=== PATIENT | female | born 1960 | race Caucasian/White ===

== ENCOUNTER 2019-04-01 23:17 | Inpatient (IN) | payer MEDICARE ==
[~2019-04-01] VITALS: Ht 170.2 cm; Wt 77.0 kg
--- NOTE | 2019-04-01 01:45 | NUR ---
RECIEVED REPORT FROM RANDY ADAMS. PT ARRIVED ON STRETCHER, ALERT, BUT CONFUSED, WITH GARBLED SPEECH. PT ALSO APPEARS LETHARGIC ON ARRIVAL. SODIUM BICARB INFUSING @ 200MLS/HR ON ARRIVAL, WITH NS ALSO INFUSING @ 250MLS/HR. PIV ON LFA AND LEFT CHEST/UPPER ARM INTACT. IQBAL INTACT, WITH MINIMAL DRAINAGE. PT IS A POOR HISTORIAN, DUE TO LITTLE OR NO VERBAL RESPONSE. ADMISSION ASSESSMENT COMPLETED. PT DENIES ANY FURTHER NEEEDS FOR COMFORT CARE. WILL CTM.
--- NOTE | 2019-04-01 01:50 | NUR ---
CALLED TRAINING DEVELOPER/ER DOCTOR ABOUT RATE OF INFUSION OF SODIUM BICARD INFUSING @ 2OOMLS/HR. DOCTOR ORDERED TO DC THE SODIUM BICARB, BUT CONTINUE THE INFUSION OF NS @ 250MLS/HR. PT IN BED WITH EYES CLOSED, NO S/S OF DISTRESS.
[2019-04-01] MEDS ORDERED: LIPITOR10 MG (23:26)
[2019-04-01] MEDS ORDERED: CYCLOBENZAPRINE5 MG PO (23:26)
[2019-04-01] MEDS ORDERED: PROLIXIN DEC25 MG/ML (23:27)
[2019-04-01] MEDS ORDERED: COUMADIN2 MG PO (23:27)
[2019-04-01] MEDS ORDERED: DEPAKOTE125 MG (23:27)
[2019-04-01] MEDS ORDERED: TENORMIN25 MG PO (23:27)
--- NOTE | 2019-04-01 23:49 | NUR ---
PT RECEIVING 24MG SODIUM BICARB IN 1000ML 0.9% NS UPON ARRIVAL. EDP VERBAL ORDER TO CONTINUE AT 200ML/HR.
[2019-04-02] VITALS (7 sets, daily range): BP systolic 124–165; BP diastolic 48–80; BMI 29.5
[2019-04-02 00:09] LABS: APPEARANCE CLOUDY (CLEAR); BILIRUBIN NEGATIVE (NEGATIVE); COLOR YELLOW (YELLOW); GLUCOSE 100 mg/dL (NEGATIVE); KETONE SMALL mg/dL (NEGATIVE); NITRITE NEGATIVE (NEGATIVE); PROTEIN 3+ mg/dL (NEGATIVE); SPECIFIC GRAVITY 1.015 (1.005-1.020); UROBILINOGEN NORMAL (NORMAL)
[2019-04-02 00:11] LABS: BACTERIA MANY /hpf (NEGATIVE); EPITHELIAL CELLS 0-5 /hpf (0-5)
[2019-04-02 00:22] LABS: ALBUMIN 2.3 g/dL (3.4-5.0); ALKALINE PHOSPHATASE 57 U/L (46-116); ALT (SGPT) 403 U/L (10-68); BILIRUBIN - TOTAL 0.44 mg/dL (0.2-1.3); CALC OSMOLALITY 302 mosm/kg (275-300); CALCIUM 7.2 mg/dL (8.5-10.1); CARBON DIOXIDE 20.1 mmol/L (21.0-32.0); CHLORIDE - SERUM 106 mmol/L (98-107); CREATININE - SERUM 8.1 mg/dL (0.6-1.3); GLUCOSE 103 mg/dL (74-106); MAGNESIUM - SERUM 2.4 mg/dL (1.8-2.4); POTASSIUM - SERUM 4.6 mmol/L (3.5-5.1); PROTEIN - SERUM 5.5 g/dL (6.4-8.2); SODIUM 140 mmol/L (136-145); UREA NITROGEN 80 mg/dL (7-18); eGFR NON AFRICAN AMERICAN 5 mL/min (90-120)
[2019-04-02 00:23] LABS: CREATINE KINASE 17525 UL (21-215)
[2019-04-02 00:52] LABS: CKMB 81.9 U/L (0.0-3.6)
--- NOTE | 2019-04-02 01:15 | NUR ---
STAT LOC APPLIED TO LEFT THIGH TO SECURE 16F IQBAL.
[2019-04-02 06:20] LABS: BASOPHILS 0.3 % (0-2); EOSINOPHILS 0.8 % (0-7); HEMATOCRIT 36.7 % (36.0-48.0); HEMOGLOBIN 12.7 g/dL (12-16); IMMATURE GRANULOCYTES 0.1 % (0-5); LYMPHOCYTES 11.5 % (15-50); MCH 30.2 pg (26.0-34.0); MCHC 34.6 g/dL (31.0-37.0); MCV 87.2 fL (80.0-100.0); MEAN PLATELET VOLUME 11.7 fL (7.4-10.4); MONOCYTES 12.1 % (2-11); NEUTROPHILS 75.2 % (40-80); PLATELET COUNT 108 10x3/uL (130-400); RBC 4.21 10x6/uL (4.00-5.40); RDW 13.7 % (11.5-14.5); WBC 7.6 10x3/uL (4.8-10.8)
[2019-04-02 07:01] LABS: ALBUMIN 2.2 g/dL (3.4-5.0); ALKALINE PHOSPHATASE 54 U/L (46-116); ALT (SGPT) 356 U/L (10-68); BILIRUBIN - TOTAL 0.34 mg/dL (0.2-1.3); CALC OSMOLALITY 305 mosm/kg (275-300); CALCIUM 7.1 mg/dL (8.5-10.1); CARBON DIOXIDE 19.4 mmol/L (21.0-32.0); CHLORIDE - SERUM 107 mmol/L (98-107); CREATININE - SERUM 8.5 mg/dL (0.6-1.3); GLUCOSE 96 mg/dL (74-106); POTASSIUM - SERUM 4.3 mmol/L (3.5-5.1); PROTEIN - SERUM 4.8 g/dL (6.4-8.2); SODIUM 141 mmol/L (136-145); UREA NITROGEN 83 mg/dL (7-18); eGFR NON AFRICAN AMERICAN 5 mL/min (90-120)
[2019-04-02 07:02] LABS: CREATINE KINASE 14661 UL (21-215)
[2019-04-02 07:03] LABS: TROPONIN-I 0.207 ng/mL (0.000-0.060)
--- NOTE | 2019-04-02 07:56 | NUR ---
FLORES DUNCAN AWARE OF TROPONIN 0.207. SHE STATED THATS FROM THE [facility]. I ALSO STATED TO HER I PLACED A TELEMETRY ON THE PATIENT AND SHE STATES GOOD.
[2019-04-02 09:53] LABS: LDL-HDL RATIO 2.7 ratio (1.5-3.5); MAGNESIUM - SERUM 2.3 mg/dL (1.8-2.4); PHOSPHOROUS 7.1 mg/dL (2.5-4.9)
[2019-04-02 10:18] LABS: COMPLEMENT C4 32.4 mg/dL (17.4-52.2)
--- NOTE | 2019-04-02 12:33 | NUR ---
PT VOMITING. SPOKE WITH MEENAKSHI DUNCAN AND SHE GAVE VERBAL ORDER FOR ZOFRAN 4MG Q6HP.
--- NOTE | 2019-04-02 12:47 | NUR ---
MEENAKSHI DUNCAN STATES I CAN ORDER A SWALLOW EVAL. I ALSO STATED TO MEENAKSHI DUNCAN THAT PT IS HAVING A LOT OF BACK PAIN AND SHE STATES SHE WILL LOOK AT HER CHART.
--- NOTE | 2019-04-02 14:30 | NUR ---
PATIENT RESTING WITH EYES CLOSED. RESP EVEN AND UNLABORED. PATIENTS PARENTS AT BEDSIDE. URINE COLLECTED FROM PORT FOR UA AT THIS TIME AFTER CLEANINGS HUB WELL. CALL LIGHT WITHIN REACH. NO DISTRESS.
[2019-04-02 15:13] LABS: APTT 40.9 SECONDS (22.8-39.4); INR 3.15 (0.85-1.17); PROTIME 31.6 SECONDS (11.6-15.0)
--- NOTE | 2019-04-02 16:20 | NUR ---
SPOKE WITH MEENAKSHI DUNCAN ABOUT STARTING HOME MEDS. SHE STATES SHE WILL LOOK ATTHEM.
[2019-04-02] MEDS ORDERED: ACETAMINOPHEN500 M1 PO (16:26)
--- NOTE | 2019-04-02 16:31 | NUR ---
MED LIST CORRECTED FROM PAPERWORK FROM [facility]. TRIED CALLING [facility] WHERE PT LIVES AND ALL I KEEP GETTING IS VOICEMAIL.
--- NOTE | 2019-04-02 16:35 | NUR ---
SPOKE WITH [facility] AND THE NURSE FROM FACILITY IS SUPPOSSED TO CALL ME BACK.
--- NOTE | 2019-04-02 19:42 | NUR ---
REPORT RECIEVED AND ROUNDING COMPLETE. PATIENT SITTING ON BSC, GRIPPER INSTALLER REPORTS SHE TRANSFERED WELL. ASSISTED WITH GETTING PATIENT BACK TO BED. PATIENT HAS A LEFT UPPER ARM PIV THAT IS RUNNING NORMAL SALINE, PIV HAS NO S/SX OF INFILTRATION OR INFECTION. PATIENT HAS A IQBAL CATH WITH PINKISH COLORED CLOUDY URINE. PATIENT IS A LITTLE LETHARGIC AT THIS TIME. PATIENT HAS DELAYED RESPONSE WHEN IS COME TO TALKING. PATIENT IS COMFORTABLE IN BED IN HIGH FOWLERS. BED ALARM IS ON, CALL LIGHT WITHIN REACH AND BED IN LOWEST LOCKED POSITION.
[2019-04-03 04:00] VITALS: BP 138/67
[2019-04-03 06:02] LABS: INR 3.03 (0.85-1.17); PROTIME 30.6 SECONDS (11.6-15.0)
[2019-04-03 06:03] LABS: ALBUMIN 1.9 g/dL (3.4-5.0); BILIRUBIN - TOTAL 0.29 mg/dL (0.2-1.3); CREATININE - SERUM 9.3 mg/dL (0.6-1.3); POTASSIUM - SERUM 4.6 mmol/L (3.5-5.1); PROTEIN - SERUM 4.4 g/dL (6.4-8.2)
[2019-04-03 06:04] LABS: ANION GAP 21.1 mmol/L (8-16); CARBON DIOXIDE 12.5 mmol/L (21.0-32.0)
[2019-04-03 06:26] LABS: BASOPHILS 0.3 % (0-2); EOSINOPHILS 1.9 % (0-7); HEMATOCRIT 37.4 % (36.0-48.0); HEMOGLOBIN 12.7 g/dL (12-16); IMMATURE GRANULOCYTES 0.1 % (0-5); LYMPHOCYTES 11.8 % (15-50); MCH 29.6 pg (26.0-34.0); MCV 87.2 fL (80.0-100.0); MEAN PLATELET VOLUME 11.6 fL (7.4-10.4); MONOCYTES 12.1 % (2-11); NEUTROPHILS 73.8 % (40-80); PLATELET COUNT 127 10x3/uL (130-400); RBC 4.29 10x6/uL (4.00-5.40); WBC 7.8 10x3/uL (4.8-10.8)
[2019-04-03 08:00] VITALS: BP 145/61
[2019-04-03 08:31] LABS: CKMB 22.3 U/L (0.0-3.6)
[2019-04-03 08:32] LABS: CREATINE KINASE 4519 UL (21-215)
[2019-04-03 12:00] VITALS: BP 131/59
--- NOTE | 2019-04-03 14:28 | NUR ---
PAGE PLACED TO PERLA ARRIETA TO REQUEST PAIN MEDICATION STRONGER THAN TYLENOL. PATIENT HAD A FALL AND TYLENOL HAS NOT BEEN EFFECTIVE FOR BACK PAIN.
--- NOTE | 2019-04-03 14:37 | NUR ---
MEENAKSHI RETURNED CALL AND GAVE NEW ORDERS FOR BUPRENEX 0.1MG IV Q6 HOURS PRN PAIN
[2019-04-03 16:00] VITALS: BP 130/59
--- NOTE | 2019-04-03 17:36 | NUR ---
LETHARGIC. IN BED. AROUSES TO STIMULI. POCKETS FOOD. CHOKES EASILY WHEN EATING. SINUS RHYTHM 70 WITH BBB ON TELEMETRY. IQBAL DRAINING BY GRAVITY AT BEDSIDE. FAMILY AT BEDSIDE. SODIUM BICARB INFUSING ORDERED THROUGH LT UPPER ARM. DENIES ANY NEEDS AT THIS TIME. CONTINUE PLAN OF CARE AND SAFETY PRECAUTIONS.
--- NOTE | 2019-04-03 19:46 | NUR ---
PT RESTING IN BED ALERT TO LOUD VOICE. RR EVEN AND UNLABORED. BICARB RUNNING AT 100ML/HR. FOUND FOOD POCKETED IN PT'S MOUTH. PT HAVING DIFFICULTY SWALLOWING FOOD. MOTHER AT BEDSIDE. BED LOW CALL LIGHT WITHIN REACH. WILL CONTINUE TO MONITOR.
[2019-04-03 20:23] VITALS: BP 120/70
[2019-04-04 00:11] VITALS: BP 123/64
--- NOTE | 2019-04-04 00:49 | NUR ---
I have reviewed this patient and I concur with the Shift Assessment completed by the Licensed Practical Nurse today this shift.
--- NOTE | 2019-04-04 01:57 | NUR ---
PT COMPLAINS OF PAIN IN LOWER BACK AREA. PRN PAIN MED GIVEN. VITALS STABLE AT THIS TIME. BED LOW CALL LIGHT WITHIN REACH. MOTHER AT BEDSIDE. WILL CONTINUE TO MONTITOR.
[2019-04-04 03:19] LABS: APPEARANCE CLOUDY (CLEAR); BILIRUBIN NEGATIVE (NEGATIVE); COLOR YELLOW (YELLOW); GLUCOSE 50 mg/dL (NEGATIVE); KETONE NEGATIVE (NEGATIVE); NITRITE NEGATIVE (NEGATIVE); PROTEIN 3+ mg/dL (NEGATIVE); SPECIFIC GRAVITY 1.015 (1.005-1.020); UROBILINOGEN NORMAL (NORMAL)
[2019-04-04 03:21] LABS: BACTERIA MODERATE /hpf (NEGATIVE); EPITHELIAL CELLS 0-5 /hpf (0-5); WHITE CELLS - URINE 25-50 /hpf (NEGATIVE)
--- NOTE | 2019-04-04 03:26 | NUR ---
PT RESTING IN BED WITH EYES CLOSED RR EVEN AND UNLABORED. NO S/S OF DISTRESS. MOTHER AT BEDSIDE. BED LOW CALL LIGHT WITHIN REACH. WILL CONTINUE TO MONITOR.
[2019-04-04 04:24] VITALS: BP 109/56
--- NOTE | 2019-04-04 05:53 | NUR ---
PT HAS 50ML OF URINE OUTPUT ALL NIGHT. PT RESTING COMFORTABLY AT THIS TIME. BED LOW. MOTHER AT BEDSIDE. CALL LIGHT WITHIN REACH. WILL CONTINUE TO MONITOR.
[2019-04-04 06:25] LABS: BASOPHILS 0.3 % (0-2); HEMATOCRIT 34.7 % (36.0-48.0); HEMOGLOBIN 12.2 g/dL (12-16); IMMATURE GRANULOCYTES 0.2 % (0-5); LYMPHOCYTES 16.9 % (15-50); MCH 30.1 pg (26.0-34.0); MCHC 35.2 g/dL (31.0-37.0); MCV 85.7 fL (80.0-100.0); MEAN PLATELET VOLUME 11.2 fL (7.4-10.4); MONOCYTES 13.6 % (2-11); PLATELET COUNT 127 10x3/uL (130-400); RBC 4.05 10x6/uL (4.00-5.40); RDW 13.7 % (11.5-14.5); WBC 6.3 10x3/uL (4.8-10.8)
[2019-04-04 07:08] LABS: INR 3.12 (0.85-1.17); PROTIME 31.3 SECONDS (11.6-15.0)
[2019-04-04 07:13] LABS: ALBUMIN 1.7 g/dL (3.4-5.0); ALKALINE PHOSPHATASE 41 U/L (46-116); BILIRUBIN - TOTAL 0.33 mg/dL (0.2-1.3); CALC OSMOLALITY 309 mosm/kg (275-300); CALCIUM 7.1 mg/dL (8.5-10.1); CHLORIDE - SERUM 105 mmol/L (98-107); CREATININE - SERUM 10.3 mg/dL (0.6-1.3); GLUCOSE 84 mg/dL (74-106); PROTEIN - SERUM 4.3 g/dL (6.4-8.2); SODIUM 141 mmol/L (136-145); UREA NITROGEN 97 mg/dL (7-18); eGFR NON AFRICAN AMERICAN 4 mL/min (90-120)
[2019-04-04 07:17] LABS: ALT (SGPT) 172 U/L (10-68); CARBON DIOXIDE 20.8 mmol/L (21.0-32.0); CREATINE KINASE 2078 UL (21-215); POTASSIUM - SERUM 3.9 mmol/L (3.5-5.1)
--- NOTE | 2019-04-04 07:44 | NUR ---
RECIEVED REPORT. RESTING IN BED WITH EYES CLOSED. FAMILY AT BEDSIDE. NOTIFY PERLA GRACIA OF BUN AND CR TRENDING UP. SINUS RHYTHM WITH BBB. CONTINUE PLAN OF CARE AND SAFETY PRECAUTIONS.
[2019-04-04 07:53] VITALS: BP 125/60
[2019-04-04 11:03] VITALS: BP 107/59
[2019-04-04 15:37] VITALS: BP 108/54
--- NOTE | 2019-04-04 17:02 | NUR ---
LETHARGIC. AROUSES TO STIMULI. FAMILY AT BEDSIDE. IQBAL DRAINING BY GRAVITY SCANT DRAINAGE. DOCTOR KOURTNEY AT BEDSIDE EDUCATING FAMIILY ON KIDNEY FUNCTION AND DIALYSIS. DENIES ANY NEEDS AT THIS TIME. CONTINUE PLAN OF CARE AND SAFETY PRECAUTIONS.
--- NOTE | 2019-04-04 19:33 | NUR ---
LCTA PT IS NON VERBAL WHEN I ASK QUESTIONS AND WILL STARE PAST ME SKIN WARM AND DRY BOWEL SOUNDS X4 SRX2 AND BED LOW AND LOCKED ASSISTED WITH REPOSITIONING FAMILY MEMBER IS CONTROLLING CALL LIGHT AT THIS TIME
[2019-04-04 20:00] VITALS: BP 122/69
--- NOTE | 2019-04-04 23:53 | NUR ---
SPO2 NOW 97% WITH 2L
[2019-04-05] VITALS: BP 115/63
--- NOTE | 2019-04-05 04:50 | NUR ---
I have reviewed this patient and I concur with the Shift Assessment completed by the Licensed Practical Nurse today this shift.
[2019-04-05 05:50] LABS: BASOPHILS 0.4 % (0-2); EOSINOPHILS 5.1 % (0-7); HEMATOCRIT 33.7 % (36.0-48.0); HEMOGLOBIN 11.6 g/dL (12-16); IMMATURE GRANULOCYTES 0.3 % (0-5); MCH 29.5 pg (26.0-34.0); MCHC 34.4 g/dL (31.0-37.0); MCV 85.8 fL (80.0-100.0); MONOCYTES 15.7 % (2-11); NEUTROPHILS 63.5 % (40-80); PLATELET COUNT 121 10x3/uL (130-400); RBC 3.93 10x6/uL (4.00-5.40); RDW 13.7 % (11.5-14.5); WBC 7.2 10x3/uL (4.8-10.8)
[2019-04-05 06:42] LABS: PROTIME 36.5 SECONDS (11.6-15.0)
[2019-04-05 06:44] LABS: INR 3.78 (0.85-1.17)
[2019-04-05 07:01] LABS: ALBUMIN 1.7 g/dL (3.4-5.0); ALKALINE PHOSPHATASE 41 U/L (46-116); ALT (SGPT) 136 U/L (10-68); CALC OSMOLALITY 315 mosm/kg (275-300); CHLORIDE - SERUM 105 mmol/L (98-107); CKMB 8.1 U/L (0.0-3.6); CREATININE - SERUM 10.6 mg/dL (0.6-1.3); GLUCOSE 105 mg/dL (74-106); POTASSIUM - SERUM 3.8 mmol/L (3.5-5.1); PROTEIN - SERUM 4.4 g/dL (6.4-8.2); SODIUM 144 mmol/L (136-145); UREA NITROGEN 95 mg/dL (7-18); eGFR NON AFRICAN AMERICAN 4 mL/min (90-120)
[2019-04-05 07:30] LABS: CARBON DIOXIDE 27.1 mmol/L (21.0-32.0); CREATINE KINASE 1405 UL (21-215)
[2019-04-05 07:31] LABS: CALCIUM 6.9 mg/dL (8.5-10.1)
[2019-04-05 08:00] VITALS: BP 128/62
--- NOTE | 2019-04-05 09:07 | NUR ---
ATENOLOL GIVEN WITH APPLE SAUCE. PT A/O X1, RESP EVEN AND NONLABORED ON 2L. LT UPPER ARM SL, WAITING ON PHARMACY TO BRING ANOTHER BAG OF SODIUM BICARB FLUIDS. LT FA INFUSING NS AT KVO. MONITOR SHOWING SB WITH RATE OF 57. IQBAL CATHETER DRAINING TO GRAVITY. PT MIRYAM ANY NEEDS AT THIS TIME, CALL LIGHT IN REACH, NAD NOTED,W ILL CONTINUE TO MONITOR.
[2019-04-05 12:24] VITALS: BP 140/66
--- NOTE | 2019-04-05 14:00 | NUR ---
COMPLETE BED BATH GIVEN AND COMPLETE LINEN CHANGE DONE AT THIS TIME. REPOSITONED PT ON LT SIDE. PT DENIES ANY NEEDS AT THIS TIME. JUST AKING FOR HER PARENTS, INFORMED PT THAT HER FATHER WENT TO PICK HER MOTHER UP TO BRING HER UP TO THE HOSPITAL. CALL LIGHT IN REACH, BEDSIDE RAILS X2, NAD NOTED, WILL CONTINUE TO MONITOR.
[2019-04-05 14:09] LABS: SPE - A/G RATIO 0.9 (0.7-1.7); SPE - ALBUMIN 2.1 g/dL (2.9-4.4); SPE - ALPHA-1 GLOBULIN 0.3 g/dL (0.0-0.4); SPE - ALPHA-2 GLOBULIN 0.6 g/dL (0.4-1.0); SPE - BETA GLOBULIN 0.9 g/dL (0.7-1.3); SPE - GAMMA GLOBULIN 0.5 g/dL (0.4-1.8); SPE - M-SPIKE Not Observed g/dL (Not Observed); SPE - TOTAL PROTEIN 4.5 g/dL (6.0-8.5)
[2019-04-05 14:53] VITALS: BMI 31.4
[2019-04-05 16:19] VITALS: BP 146/66
[2019-04-05 20:15] VITALS: BP 142/68
[2019-04-06 00:02] VITALS: BP 136/78
[2019-04-06 04:00] VITALS: BP 141/74
--- NOTE | 2019-04-06 04:34 | NUR ---
I have reviewed this patient and I concur with the Shift Assessment completed by the Licensed Practical Nurse today this shift.
--- NOTE | 2019-04-06 04:52 | NUR ---
I have reviewed this patient and I concur with the Shift Assessment completed by the Licensed Practical Nurse today this shift.
[2019-04-06 06:44] LABS: INR 3.55 (0.85-1.17); PROTIME 34.7 SECONDS (11.6-15.0)
[2019-04-06 06:46] LABS: BASOPHILS 0.4 % (0-2); EOSINOPHILS 4.7 % (0-7); HEMATOCRIT 33.5 % (36.0-48.0); HEMOGLOBIN 11.6 g/dL (12-16); IMMATURE GRANULOCYTES 0.3 % (0-5); LYMPHOCYTES 12.8 % (15-50); MCH 29.9 pg (26.0-34.0); MCHC 34.6 g/dL (31.0-37.0); MCV 86.3 fL (80.0-100.0); MEAN PLATELET VOLUME 10.9 fL (7.4-10.4); MONOCYTES 14.4 % (2-11); NEUTROPHILS 67.4 % (40-80); PLATELET COUNT 134 10x3/uL (130-400); RBC 3.88 10x6/uL (4.00-5.40); RDW 13.5 % (11.5-14.5); WBC 7.5 10x3/uL (4.8-10.8)
[2019-04-06 06:53] LABS: ALBUMIN 1.8 g/dL (3.4-5.0); ALKALINE PHOSPHATASE 45 U/L (46-116); ALT (SGPT) 109 U/L (10-68); BILIRUBIN - TOTAL 0.32 mg/dL (0.2-1.3); CALC OSMOLALITY 312 mosm/kg (275-300); CARBON DIOXIDE 29.4 mmol/L (21.0-32.0); CHLORIDE - SERUM 102 mmol/L (98-107); CKMB 6.6 U/L (0.0-3.6); CREATININE - SERUM 10.5 mg/dL (0.6-1.3); GLUCOSE 89 mg/dL (74-106); POTASSIUM - SERUM 3.6 mmol/L (3.5-5.1); PROTEIN - SERUM 4.2 g/dL (6.4-8.2); SODIUM 143 mmol/L (136-145); UREA NITROGEN 94 mg/dL (7-18); eGFR NON AFRICAN AMERICAN 4 mL/min (90-120)
[2019-04-06 07:14] LABS: ANA REFLEX - DBL STRANDED DNA <1 IU/mL (0-9); ANA REFLEX - DIRECT Negative (Negative)
[2019-04-06 07:33] LABS: CREATINE KINASE 920 UL (21-215)
--- NOTE | 2019-04-06 07:35 | NUR ---
GAVE 0.1MG OF BUPRENEX FOR PAIN LEVEL OF 7/10. PT A/OX 1. RESP EVEN AND NONLABORED ON 2L. RESPOSITONED PT IN BED, AND TURNED HER TO HER LEFT SIDE. IQBAL DRAINING YELLOW URINE TO GRAVITY. LT UPPPER ARM INFUSING SODIUM BICARB AT 100CC/HR. AND NS AT 10CC/HR. PT DENIES ANY OTHER NEEDS AT THIS TIME. CALL LIGHT IN REACH, BEDSIDE RAILS X2, FAMILY AT BEDSIDE,NAD NOTED, WILL CONTINUE TO MONITOR.
[2019-04-06 07:38] LABS: CALCIUM 6.8 mg/dL (8.5-10.1)
--- NOTE | 2019-04-06 08:11 | NUR ---
ATENOLOL GIVEN WITH APPLE SAUCE, PT HAD NO TROUBLE SWALLOWING PIL. PT RATES PAIN LEVEL NOW 5/10. PT DENIES ANY NEEDS AT THIS TIME. CALL LIGHT IN REACH, FAMILY AT BEDSIDE, NAD NOTED, WILL CONTINUE TO MONITOR.
[2019-04-06 08:45] VITALS: BP 148/69
--- NOTE | 2019-04-06 11:30 | NUR ---
APPLIED MEPELEX DRESSING TO BOTTOM AND REPOSITIONED PT IN THE BED, TURNED HER TO HER LEFT SIDE. PT DENIES ANY NEEDS AT THIS TIME. CALL LIGHT IN REACH, FAMILY AT BEDSIDE, NAD NOTED,W ILL CONTINUE TO MONITOR.
[2019-04-06 11:45] VITALS: BP 129/60
--- NOTE | 2019-04-06 14:22 | MORECARE ---
CASE MANAGEMENT DISCHARGE SUMMARY PATIENT: ANEESH FRYE UNIT: [id number] ADM DATE: 04/02/19 AGE: 58 : 56 SEX: F ROOM/BED: D.8426 AUTHOR: ZAC SALDANA PHYSICIAN: REFERRING PHYSICIAN: PETRA SOMMERS MD DATE OF SERVICE: 04/06/19 Discharge Plan Patient Name: ANEESH FRYE Facility: [facility]:[place] : 1960 Planned Disposition: Anticipated Discharge Date: Discharge Date: Expected LOS: Initial Reviewer: [id number] Initial Review Date: 04/06/2019 Generated: 04/06/19 3:21 pm Comments DCP- Discharge Planning Updated by [email or web address]: Donya Jenn on 04/06/19 1:[address] Patient Name: ANEESH FRYE Admission Status: ER Accout number: [id number] Admission Date: 04-02-2019 : 1960 Admission Diagnosis:ACUTE KIDNEY FAILURE, UNSPECIFIED Attending: NEGRA SOMMERS Current LOS: 4 Anticipated DC Date: Planned Disposition: Primary Insurance: [employer] [facility] PFFS Discharge Planning Comments: CM MET WITH PATIENT ABOUT DC PLANNING/NEEDS. HER SISTER HORACE STATED THEIR PARENTS ABRAM FRYE HAVE GAURDIANSHIP. STATES SISTER HAS MR AND SCHIZOPHRENIA AND LIVES IN A ASSISTED, SISTER IS CONCERNED PATIENT MAY NEED REHAB AFTER DISCHARGE. STATES WHEN PARENTS ARRIVE THEY WILL CONTACT CM. Blanking Press Operator: Donya Barajas DCPIA - Discharge Planning Initial Assessment Updated by [id number]: Donya Barajas on 04/06/19 2:18 pm * Is the patient Alert and Oriented? No * Preadmission Environment [facility] * List name and contact numbers for known caregivers / representatives who currently or will assist patient after discharge: ABRAM FRYE, PARENTS, Patient Name: ANEESH FRYE Page [phone] at 1422 All edits/amendments must be made on the electronic document DICTATION DATE: 04/06/19 1421 SKIN CARE TECHNICIAN: SAIMA 04/06/19 1428 RPT#: [id number] [place] DATE: STATUS: ADM IN [facility] [address] [place] [address] END OF REPORT
--- NOTE | 2019-04-06 15:02 | NUR ---
PT REPOSITIONED IN BED AND TURNED TO HER RIGHT SIDE. FAMILY AT BEDSIDE,STATED THAT THE DOCTOR TOLD HER THAT SHE WAS GOING TO D/C PT'S FLUID AND ORDER MORPHINE FOR PAIN. INFORMED FAMILY AT BEDSIDE THAT THE ORDERS WERE STILL NOT IN AND THAT I WOULD TURN THE FLUIDS DOWN A LITTLE UNTIL I RECEIVE ORDERS TO D/C IV FLUIDS. PT DENIES ANY NEEDS AT THIS TIME. CALL LIGHT IN REACH, MARIANA NOTED, WILL CONTINUE TO MONITOR.
--- NOTE | 2019-04-06 16:17 | NUR ---
COMPLETE BED BATH AND LINEN CHANGE DONE AT THIS TIME.
[2019-04-06 16:37] VITALS: BP 142/68
--- NOTE | 2019-04-06 19:30 | NUR ---
PT ALERT, ORIENTED X4, RIGHT PIV INTACT WITH NS @ KVO, DRESSING C/D/I TO BACK OF LEFT THIGH, VISITOR @ BEDSIDE, NO C/O
--- NOTE | 2019-04-06 19:50 | NUR ---
PT ALERT, CONFUSED, SLOW TO RESPOND VERBALLY, O2 @ 2L VIA N/C, LEFT ARM PIV INTACT WITH LR @ 75 CC/HR, IQBAL PATENT TO BSD, PT SISTER @ BEDSIDE, NO DISTRESS NOTED
[2019-04-06 20:00] VITALS: BP 148/67
[2019-04-07] VITALS: BP 151/72
[2019-04-07 05:14] LABS: BASOPHILS 0.2 % (0-2); EOSINOPHILS 5.8 % (0-7); HEMATOCRIT 32.7 % (36.0-48.0); HEMOGLOBIN 11.3 g/dL (12-16); IMMATURE GRANULOCYTES 0.2 % (0-5); LYMPHOCYTES 11.2 % (15-50); MCH 29.1 pg (26.0-34.0); MCHC 34.6 g/dL (31.0-37.0); MEAN PLATELET VOLUME 10.6 fL (7.4-10.4); MONOCYTES 13.4 % (2-11); NEUTROPHILS 69.2 % (40-80); PLATELET COUNT 149 10x3/uL (130-400); RBC 3.88 10x6/uL (4.00-5.40); RDW 13.3 % (11.5-14.5); WBC 8.4 10x3/uL (4.8-10.8)
[2019-04-07 05:23] LABS: MCV 84.3 fL (80.0-100.0)
[2019-04-07 05:39] LABS: INR 3.27 (0.85-1.17); PROTIME 32.6 SECONDS (11.6-15.0)
[2019-04-07 05:46] LABS: ALBUMIN 1.8 g/dL (3.4-5.0); ANION GAP 14.9 mmol/L (8-16); BILIRUBIN - TOTAL 0.39 mg/dL (0.2-1.3); CARBON DIOXIDE 29.3 mmol/L (21.0-32.0); POTASSIUM - SERUM 3.2 mmol/L (3.5-5.1); PROTEIN - SERUM 4.6 g/dL (6.4-8.2)
[2019-04-07 05:54] LABS: CALCIUM 6.9 mg/dL (8.5-10.1)
--- NOTE | 2019-04-07 07:40 | NUR ---
REPORT RECIEVED. PT IS SITTING FOWLERS IN BED. RR EVEN AND UNLABORED, CURRENTLY ON 2L NC. SHE HAS A L AC PIV THAT IS SL AND A L UPPER ARM PIV INFUSING LR @ 75. BED LOCKED AND IN LOWEST POSITION. CALL LIGHT WITHIN REACH. WILL CTM
[2019-04-07 08:34] VITALS: BP 145/72
[2019-04-07 12:30] VITALS: BP 148/73
--- NOTE | 2019-04-07 14:12 | NUR ---
Nutrition Follow-up: Spoke with family. He reports pt with poor PO intake and does not like Nepro; expressed interest in more solid foods. Noted ST to try therapeutic trial of mechanical soft on Thu (04/08). Diet: Renal, Puree, Nepro TID Wt: 225# Last BM: 04/03 per chart Labs noted: K+ 3.2, Ca 6.9, Glu 115, Alb 1.8 Meds reviewed Continue current diet as tolerated with consistencies per ST. Will discuss d/c'ing Nepro 2/2 pt refusal. If poor PO intake persists, may consider nutrition support. RD following.
--- NOTE | 2019-04-07 14:58 | MORECARE ---
CASE MANAGEMENT DISCHARGE SUMMARY PATIENT: ANEESH FRYE UNIT: [id number] ADM DATE: 04/02/19 AGE: 58 : 56 SEX: F ROOM/BED: D.9421 AUTHOR: ZAC SALDANA PHYSICIAN: REFERRING PHYSICIAN: PETRA SOMMERS MD DATE OF SERVICE: 04/07/19 Discharge Plan Patient Name: ANEESH FRYE Facility: [facility]:[place] : 1960 Planned Disposition: Anticipated Discharge Date: Discharge Date: Expected LOS: Initial Reviewer: [id number] Initial Review Date: 04/06/2019 Generated: 04/07/19 3:57 pm Comments DCP- Discharge Planning Updated by [id number]: Donyacyndi Barajas on 04/06/19 1:[address] Patient Name: ANEESH FRYE Admission Status: ER Accout number: [id number] Admission Date: 04-02-2019 : 1960 Admission Diagnosis:ACUTE KIDNEY FAILURE, UNSPECIFIED Attending: NEGRA SOMMERS Current LOS: 4 Anticipated DC Date: Planned Disposition: Primary Insurance: [employer] [facility] PFFS Discharge Planning Comments: CM MET WITH PATIENT ABOUT DC PLANNING/NEEDS. HER SISTER HORACE STATED THEIR PARENTS ABRAM FRYE HAVE GAURDIANSHIP. STATES SISTER HAS MR AND SCHIZOPHRENIA AND LIVES IN A [facility], SISTER IS CONCERNED PATIENT MAY NEED REHAB AFTER DISCHARGE. STATES WHEN PARENTS ARRIVE THEY WILL CONTACT CM. Processing Technician: Donya Barajas DCPIA - Discharge Planning Initial Assessment Updated by [id number]: Donya Jenn on 04/06/19 2:18 pm * Is the patient Alert and Oriented? No * Preadmission Environment [facility] * List name and contact numbers for known caregivers / representatives who currently or will assist patient after discharge: SELINA AND CHELY FRYE, PARENTS, External Providers External Provider: [employer] Next Contact Date: Service Request Date: Service Type: Resolution: Reviewer: Comments: Last DP export: 04/06/19 1:22 p Patient Name: ANEESH FRYE Page [phone] at 1458 All edits/amendments must be made on the electronic document DICTATION DATE: 04/07/191456 RN BURN: SAIMA 04/07/191456 RPT#: [id number] DC DATE: STATUS: ADM IN [facility] [address] [place] [address] END OF REPORT
--- NOTE | 2019-04-07 15:18 | NUR ---
Rehab Note- Acute Inpatient Rehab prescreen order received. THe patient is too low level for inpatient acute rehab per OT/PT screens. THank you for this referral! Alysa Patel RN Clinical Liaison, [facility] Rehab
--- NOTE | 2019-04-07 15:37 | MORECARE ---
CASE MANAGEMENT DISCHARGE SUMMARY PATIENT: ANEESH FRYE UNIT: [id number] ADM DATE: 04/02/19 AGE: 58 : 56 SEX: F ROOM/BED: D.4776 AUTHOR: ZAC SALDANA PHYSICIAN: REFERRING PHYSICIAN: PETRA SOMMERS MD DATE OF SERVICE: 04/07/19 Discharge Plan Patient Name: ANEESH FRYE Facility: [facility]:[place] : 1960 Planned Disposition: Anticipated Discharge Date: Discharge Date: Expected LOS: Initial Reviewer: [email or web address] Initial Review Date: 04/06/2019 Generated: 04/07/19 4:37 pm Comments DCP- Discharge Planning Updated by [id number]: Donyacyndi Barajas on 04/06/19 1:[address] Patient Name: ANEESH FRYE Admission Status: ER Accout number: [id number] Admission Date: 04-02-2019 : 1960 Admission Diagnosis:ACUTE KIDNEY FAILURE, UNSPECIFIED Attending: NEGRA SOMMERS Current LOS: 4 Anticipated DC Date: Planned Disposition: Primary Insurance: [employer] [facility] PFFS Discharge Planning Comments: CM MET WITH PATIENT ABOUT DC PLANNING/NEEDS. HER SISTER HORACE STATED THEIR PARENTS ABRAM FRYE HAVE GAURDIANSHIP. STATES SISTER HAS MR AND SCHIZOPHRENIA AND LIVES IN A CARE HOME, SISTER IS CONCERNED PATIENT MAY NEED REHAB AFTER DISCHARGE. STATES WHEN PARENTS ARRIVE THEY WILL CONTACT CM. Strip Stamp Straightener: Donya Barajas DCPIA - Discharge Planning Initial Assessment Updated by [id number]: Donya Barajas on 04/06/19 2:18 pm * Is the patient Alert and Oriented? No * Preadmission Environment Residential * List name and contact numbers for known caregivers / representatives who currently or will assist patient after discharge: ABRAM FRYE, PARENTS, Last DP export: 04/07/19 1:58 p Patient Name: ANEESH FRYE Page [phone] at 1537 All edits/amendments must be made on the electronic document DICTATION DATE: 04/07/19 5147 SECURITY STRATEGIST: DM 04/07/19 1537 RPT#: [id number] DC DATE: STATUS: ADM IN [facility] [address] [place] [address] END OF REPORT
--- NOTE | 2019-04-07 15:44 | MORECARE ---
CASE MANAGEMENT DISCHARGE SUMMARY PATIENT: ANEESH FRYE UNIT: [id number] ADM DATE: 04/02/19 AGE: 58 : 56 SEX: F ROOM/BED: D.0040 AUTHOR: SHANADOC PHYSICIAN: REFERRING PHYSICIAN: PETRA SOMMERS MD DATE OF SERVICE: 04/07/19 Discharge Plan Patient Name: ANEESH FRYE Facility: [facility]:[place] : 1960 Planned Disposition: Anticipated Discharge Date: Discharge Date: Expected LOS: Initial Reviewer: [id number] Initial Review Date: 04/06/2019 Generated: 04/07/19 4:44 pm Comments DCP- Discharge Planning Updated by [id number]: Donya Barajas on 04/07/19 2:[address] Patient Name: ANEESH FRYE Admission Status: ER Accout number: [id number] Admission Date: 04-02-2019 : 1960 Admission Diagnosis:ACUTE KIDNEY FAILURE, UNSPECIFIED Attending: NEGRA SOMMERS Current LOS: 5 Anticipated DC Date: Planned Disposition: Primary Insurance: [employer] [facility] PFFS Discharge Planning Comments: CM MET WITH PATIENT'S FATHER SELINA FRYE, HE STATES HE IS HER GAURDIAN. [facility] WOULD LIKE HER TO BE SEEN BY A PSYCH DOCTOR. I GAVE HIM A LIST OF SNF TO LOOK OVER, HE IS GETTING BACK WITH ME WITH HIS CHOICE. I FILLED OUT THE SOO TODAY AND FAXED IT. CM WILL FOLLOW. Rn Clinical Resource: Donya Barajas DCP- Discharge Planning Updated by [email or web address]: Donya Barajas on 04/06/19 1:[address] Patient Name: ANEESH FRYE Admission Status: ER Accout number: [id number] Admission Date: 04-02-2019 : 1960 Admission Diagnosis:ACUTE KIDNEY FAILURE, UNSPECIFIED Attending: NEGRA SOMMERS Current LOS: 4 Anticipated DC Date: Planned Disposition: Primary Insurance: [employer] [facility] PFFS Discharge Planning Comments: CM MET WITH PATIENT ABOUT DC PLANNING/NEEDS. HER SISTER HORACE STATED THEIR PARENTS ABRAM FRYE HAVE GAURDIANSHIP. STATES SISTER HAS MR AND SCHIZOPHRENIA AND LIVES IN A SNF, SISTER IS CONCERNED PATIENT MAY NEED REHAB AFTER DISCHARGE. STATES WHEN PARENTS ARRIVE THEY WILL CONTACT CM. Rn Clinical Resource: Donya Barajas DCPIA - Discharge Planning Initial Assessment Updated by [email or web address]: Donya Barajas on 04/06/19 2:18 pm * Is the patient Alert and Oriented? No * Preadmission Environment [facility] * List name and contact numbers for known caregivers / representatives who currently or will assist patient after discharge: SELINA AND CHELY FRYE, PARENTS, Last DP export: 04/07/19 2:37 p Patient Name: ANEESH FRYE Page [phone] at 1544 All edits/amendments must be made on the electronic document DICTATION DATE: 04/07/191543 LEGAL ANALYST: SAIMA 04/07/191543 RPT#: [id number] DC DATE: STATUS: ADM IN [facility] [address] [place] [address] END OF REPORT
[2019-04-07 16:50] VITALS: BP 147/70
--- NOTE | 2019-04-07 19:20 | NUR ---
SUPINE IN BED. WILL ONLY ANSWER QUESTION WITH SINGLE WORD REPLIES, IF SHE REPLIES. MOTHER AT BED SIDE. WHEN ASKED HOW PT FELT, HER REPLY WAS "OKAY." GENERALIZED EDEMA NOTED IN EXTREMETIES. NO S/SX OF DISTRESS, WILL CONTINUE TO MONITOR.
[2019-04-07 20:00] VITALS: BP 138/71
[2019-04-08] VITALS: BP 148/85
[2019-04-08 04:00] VITALS: BP 153/57
[2019-04-08 06:04] LABS: BASOPHILS 0.3 % (0-2); EOSINOPHILS 6.4 % (0-7); HEMOGLOBIN 11.1 g/dL (12-16); IMMATURE GRANULOCYTES 0.3 % (0-5); MCH 29.5 pg (26.0-34.0); MCHC 33.6 g/dL (31.0-37.0); MONOCYTES 12.3 % (2-11); NEUTROPHILS 68.7 % (40-80); PLATELET COUNT 178 10x3/uL (130-400); RBC 3.76 10x6/uL (4.00-5.40); RDW 13.5 % (11.5-14.5)
[2019-04-08 06:12] LABS: INR 3.36 (0.85-1.17); PROTIME 33.2 SECONDS (11.6-15.0)
[2019-04-08 06:14] LABS: ANION GAP 15.5 mmol/L (8-16); CALCIUM 7.4 mg/dL (8.5-10.1); CARBON DIOXIDE 28.9 mmol/L (21.0-32.0); CREATININE - SERUM 11.8 mg/dL (0.6-1.3); POTASSIUM - SERUM 3.4 mmol/L (3.5-5.1)
[2019-04-08 06:22] LABS: MCV 87.8 fL (80.0-100.0)
--- NOTE | 2019-04-08 06:48 | NUR ---
I have reviewed this patient and I concur with the Shift Assessment completed by the Licensed Practical Nurse today this shift.
--- NOTE | 2019-04-08 08:00 | NUR ---
REPORT RECIEVED. PT IS SITTING SEMI FOWLERS IN BED. SHE IS ALERT AND CONFUSED. SHE IS SLOW TO SPEECH AND NON VERBAL AT TIMES. SHE HAS A IQBAL DRAINING URINE. PT HAS A L AC PIV THAT IS SL AND A L UPPER ARM PIV THAT IS SL. RR EVEN AND NON LABORED. SHE IS CURRENTLY WEARING 3L VIA NC. BED LOCKED AND IN LOWEST POSITION, CALL LIGHT WITHIN REACH. WILL CTM
[2019-04-08 08:03] VITALS: BP 111/74
[2019-04-08 11:55] VITALS: BP 144/55
[2019-04-08 14:09] LABS: UPE RAND - ALBUMIN 38.9 % (()); UPE RAND - ALPHA 1 GLOBULIN 2.8 % (()); UPE RAND - BETA GLOBULIN 21.9 % (()); UPE RAND - GAMMA GLOBULIN 29.3 % (())
[2019-04-08 15:16] VITALS: Ht 170.2 cm; Wt 77.0 kg
--- NOTE | 2019-04-08 15:40 | NUR ---
I have reviewed this patient and I concur with the Shift Assessment completed by the Licensed Practical Nurse today this shift.
--- NOTE | 2019-04-08 15:42 | MORECARE ---
CASE MANAGEMENT DISCHARGE SUMMARY PATIENT: ANEESH FRYE UNIT: [id number] ADM DATE: 04/02/19 AGE: 58 : 56 SEX: F ROOM/BED: D.7571 AUTHOR: SHANADOC PHYSICIAN: REFERRING PHYSICIAN: PETRA SOMMERS MD DATE OF SERVICE: 04/08/19 Discharge Plan Patient Name: ANEESH FRYE Facility: [facility]:[place] : 1960 Planned Disposition: Anticipated Discharge Date: Discharge Date: Expected LOS: Initial Reviewer: [id number] Initial Review Date: 04/06/2019 Generated: 04/08/19 4:41 pm Comments DCP- Discharge Planning Updated by [email or web address]: Donya Barajas on 04/08/19 2:[address] Patient Name: ANEESH FRYE Admission Status: ER Accout number: [id number] Admission Date: 04-02-2019 : 1960 Admission Diagnosis:ACUTE KIDNEY FAILURE, UNSPECIFIED Attending: NEGRA SOMMERS Current LOS: 6 Anticipated DC Date: Planned Disposition: Primary Insurance: [employer] [facility] PFFS Discharge Planning Comments: ANGELLA SIGNED FOR [facility]. PATIENT STARTING DIALYSIS TODAY. [facility] CM WILL FAX REFERRAL. Asphalt Heater Operator: Donya Barajas DCP- Discharge Planning Updated by [id number]: Donya Barajas on 04/07/19 2:[address] Patient Name: ANEESH FRYE Admission Status: ER Accout number: [id number] Admission Date: 04-02-2019 : 1960 Admission Diagnosis:ACUTE KIDNEY FAILURE, UNSPECIFIED Attending: NEGRA SOMMERS Current LOS: 5 Anticipated DC Date: Planned Disposition: Primary Insurance: [employer] [facility] PFFS Discharge Planning Comments: CM MET WITH PATIENT'S FATHER SELINA FRYE, HE STATES HE IS HER GAURDIAN. STATES WOULD LIKE HER TO BE SEEN BY A PSYCH DOCTOR. I GAVE HIM A LIST OF SNF TO LOOK OVER, HE IS GETTING BACK WITH ME WITH HIS CHOICE. I FILLED OUT THE SOO TODAY AND FAXED IT. CM WILL FOLLOW. Asphalt Heater Operator: Donya Barajas DCP- Discharge Planning Updated by [email or web address]: Donya Baraajs on 04/06/19 1:[address] Patient Name: ANEESH FRYE Admission Status: ER Accout number: [id number] Admission Date: 04-02-2019 : 1960 Admission Diagnosis:ACUTE KIDNEY FAILURE, UNSPECIFIED Attending: NEGRA SOMMERS Current LOS: 4 Anticipated DC Date: Planned Disposition: Primary Insurance: [employer] [facility] PFFS Discharge Planning Comments: CM MET WITH PATIENT ABOUT DC PLANNING/NEEDS. HER SISTER HORACE STATED THEIR PARENTS ABRAM FRYE HAVE GAURDIANSHIP. STATES SISTER HAS MR AND SCHIZOPHRENIA AND LIVES IN A FPC, SISTER IS CONCERNED PATIENT MAY NEED REHAB AFTER DISCHARGE. STATES WHEN PARENTS ARRIVE THEY WILL CONTACT CM. Asphalt Heater Operator: Donya Barajas DCPIA - Discharge Planning Initial Assessment Updated by [id number]: Donya Jenn on 04/06/19 2:18 pm * Is the patient Alert and Oriented? No * Preadmission Environment Skilled Nursing * List name and contact numbers for known caregivers / representatives who currently or will assist patient after discharge: SELINA AND CHELY FRYE, PARENTS, External Providers External Provider: [facility] Next Contact Date: Service Request Date: Service Type: Resolution: Reviewer: Comments: Last DP export: 04/07/19 2:44 p Patient Name: NAEESH FRYE Page [phone] at 1542 All edits/amendments must be made on the electronic document DICTATION DATE: 04/08/19 154 EDGE BLACKER: SAIMA 04/08/19 154 RPT#: [id number] DC DATE: STATUS: ADM IN [facility] [address] [place] [address] END OF REPORT
--- NOTE | 2019-04-08 15:49 | MORECARE ---
CASE MANAGEMENT DISCHARGE SUMMARY PATIENT: ANEESH FRYE UNIT: [id number] ADM DATE: 04/02/19 AGE: 58 : 56 SEX: F ROOM/BED: D.6690 AUTHOR: SHANADOC PHYSICIAN: REFERRING PHYSICIAN: PETRA SOMMERS MD DATE OF SERVICE: 04/08/19 Discharge Plan Patient Name: ANEESH FRYE Facility: [facility]:[place] : 1960 Planned Disposition: Anticipated Discharge Date: Discharge Date: Expected LOS: Initial Reviewer: [id number] Initial Review Date: 04/06/2019 Generated: 04/08/19 4:49 pm Comments DCP- Discharge Planning Updated by [id number]: Donya Barajas on 04/08/19 2:[address] Patient Name: ANEESH FRYE Admission Status: ER Accout number: [id number] Admission Date: 04-02-2019 : 1960 Admission Diagnosis:ACUTE KIDNEY FAILURE, UNSPECIFIED Attending: NEGRA SOMMERS Current LOS: 6 Anticipated DC Date: Planned Disposition: Primary Insurance: [employer] [facility] PFFS Discharge Planning Comments: ANGELLA SIGNED FOR [facility]. PATIENT STARTING DIALYSIS TODAY. [facility] CM WILL FA[facility] REFERRAL. Workforce Planning Analyst: Donya Barajas DCP- Discharge Planning Updated by [id number]: Donya Barajas on 04/07/19 2:[address] Patient Name: ANEESH FRYE Admission Status: ER Accout number: [id number] Admission Date: 04-02-2019 : 1960 Admission Diagnosis:ACUTE KIDNEY FAILURE, UNSPECIFIED Attending: NEGRA SOMMERS Current LOS: 5 Anticipated DC Date: Planned Disposition: Primary Insurance: [employer] [facility] PFFS Discharge Planning Comments: CM MET WITH PATIENT'S FATHER SELINA FRYE, HE STATES HE IS HER GAURDIAN. STATES WOULD LIKE HER TO BE SEEN BY A PSYCH DOCTOR. I GAVE HIM A LIST OF SNF TO LOOK OVER, HE IS GETTING BACK WITH ME WITH HIS CHOICE. I FILLED OUT THE SOO TODAY AND FAXED IT. CM WILL FOLLOW. Workforce Planning Analyst: Donya Barajas DCP- Discharge Planning Updated by [id number]: Donya Barajas on 04/06/19 1:[address] Patient Name: ANEESH FRYE Admission Status: ER Accout number: [id number] Admission Date: 04-02-2019 : 1960 Admission Diagnosis:ACUTE KIDNEY FAILURE, UNSPECIFIED Attending: NEGRA SOMMERS Current LOS: 4 Anticipated DC Date: Planned Disposition: Primary Insurance: [employer] [facility] PFFS Discharge Planning Comments: CM MET WITH PATIENT ABOUT DC PLANNING/NEEDS. HER SISTER HORACE STATED THEIR PARENTS ABRAM FRYE HAVE GAURDIANSHIP. STATES SISTER HAS MR AND SCHIZOPHRENIA AND LIVES IN A LONG TERM, SISTER IS CONCERNED PATIENT MAY NEED REHAB AFTER DISCHARGE. STATES WHEN PARENTS ARRIVE THEY WILL CONTACT CM. Workforce Planning Analyst: Donya Barajas DCPIA - Discharge Planning Initial Assessment Updated by [id number]: Donya Jenn on 04/06/19 2:18 pm * Is the patient Alert and Oriented? No * Preadmission Environment Fdc * List name and contact numbers for known caregivers / representatives who currently or will assist patient after discharge: SELINA AND CHELY FRYE, PARENTS, External Providers External Provider: [facility] hospital Next Contact Date: Service Request Date: Service Type: Resolution: Reviewer: Comments: Last DP export: 04/08/19 2:42 p Patient Name: ANEESH FRYE Page [id number] at 1549 All edits/amendments must be made on the electronic document DICTATION DATE: 04/08/191548 FIREWALL ENGINEER: SAIMA 04/08/19 1549 RPT#: [id number] DC DATE: STATUS: ADM IN [facility] [address] [place] [address] END OF REPORT
[2019-04-08 15:55] VITALS: BP 172/80
--- NOTE | 2019-04-08 19:14 | NUR ---
BEDSIDE REPORT RECEIVED FROM DAY SHIFT, PT CARE ASSUMED. INTRODUCED SELF TO FAMILY AT BEDSIDE AND WROTE NAME ON BOARD. PT LYING IN BED WITH EYES CLOSED, RR EVEN AND NONLABORED, NO S/S DISTRESS, OPENS EYES TO VOICE. DENIES ANY NEEDS AT THIS TIME. BED IN LOWEST POSITION, SR X2, CALL LIGHT WITHIN REACH. WILL CONTINUE TO MONITOR.
[2019-04-08 20:00] VITALS: BP 147/59
[2019-04-09] VITALS: BP 157/55
[2019-04-09 04:00] VITALS: BP 157/65
[2019-04-09 06:10] LABS: BASOPHILS 0.5 % (0-2); EOSINOPHILS 6.9 % (0-7); HEMATOCRIT 32.6 % (36.0-48.0); HEMOGLOBIN 10.8 g/dL (12-16); IMMATURE GRANULOCYTES 0.4 % (0-5); MCH 29.3 pg (26.0-34.0); MCHC 33.1 g/dL (31.0-37.0); MCV 88.6 fL (80.0-100.0); MEAN PLATELET VOLUME 10.6 fL (7.4-10.4); NEUTROPHILS 69.2 % (40-80); PLATELET COUNT 189 10x3/uL (130-400); RBC 3.68 10x6/uL (4.00-5.40); RDW 13.4 % (11.5-14.5); WBC 7.7 10x3/uL (4.8-10.8)
[2019-04-09 06:19] LABS: ANION GAP 17.7 mmol/L (8-16); CALCIUM 7.2 mg/dL (8.5-10.1); CREATININE - SERUM 12.6 mg/dL (0.6-1.3); POTASSIUM - SERUM 3.7 mmol/L (3.5-5.1)
[2019-04-09 06:44] LABS: INR 3.97 (0.85-1.17); PROTIME 37.9 SECONDS (11.6-15.0)
--- NOTE | 2019-04-09 07:00 | NUR ---
RECEIVED REPORT. ASSUMED CARE OF PATIENT. CALL LIGHT WITHIN REACH. NO DISTRESS. PATIENT OPENS EYES TO VOICE. PARENTS AT BEDSIDE. GENERALIZED PITTING EDEMA TO UPPER AND LOWER EXTREMITIES. PATIENT TO RECEIVE FIRST DIALYSIS TREATMENT TODAY. NO DISTRESS.
[2019-04-09 07:13] LABS: HEPATITIS C ANTIBODY <0.1 (0.0-0.9)
[2019-04-09 08:13] VITALS: BP 140/65
--- NOTE | 2019-04-09 09:25 | NUR ---
SPOKE WITH DIALYSIS NURSE, JITENDRA, SHE STATES PATIENT WILL BE ONE OF THE FIRST TO DIALYSIZE AND SHOULD BE READY TO GET HER DOWN TO THE SUITE WITHIN THE NEXT HOUR.
--- NOTE | 2019-04-09 11:43 | NUR ---
PATIENT LEFT UNIT VIA BED AT THIS TIME FOR DIALYSIS. NO DISTRESS UPON LEAVING UNIT. PATIENT RECEIVED ALBUMIN IV BEFORE LEAVING UNIT.
--- NOTE | 2019-04-09 12:15 | NUR ---
RECEIVED NEW ORDERS FOR ACTIVASE TO DWELL IN TRIALYSIS CATHETER BECAUSE THE CATHETER WILL NOT PULL. NEW ORDERS ENTERED AND PHARMACY CALLED TO LET THEM KNOW THAT THE ACTIVASE IS NEEDED IN THE DIALYSIS SUIT. SPOKE WITH PETRA FROM PHARMACY AND THEN CALLED JITENDRA BACK TO LET HER KNOW THE ORDER WAS PLACED AND THIS RUBBER VULCANIZING MACHINE OPERATOR HAS NOTIFIED THE PHARMACY.
--- NOTE | 2019-04-09 13:22 | NUR ---
RECIEVED CALL THAT ACTIVASE DID NOT WORK IN PATIENT TRIALYSIS CATHETER. NEW ORDERS RECEIVED TO DO STAT CXR TO MAKE SURE THAT THE TRIALYSIS IS IN PLACE AND CONSULT . DR. CLANCY PAGED AT THIS TIME.
--- NOTE | 2019-04-09 13:27 | NUR ---
SPOKE WITH DR. CLANCY AND NOTIFIED HIM THAT THE TRIALYSIS IS NOT WORKING EVEN AFTER LETTING ACTIVASE SIT IN THE LUMENS FOR 45 MINUTES AND WE WILL REPEAT THE CHEST XRAY. DR. CLANCY NOT IN HOSPTIAL AT THIS TIME TO CHECK TRIALYSIS CATH WHILE PATIENT IS IN DIALYSIS SUIT SO WE ARE BRINGING PATIENT BACK TO HER ROOM AND WILL GET THE CXR. THANKED DR. CLANCY.
--- NOTE | 2019-04-09 14:02 | NUR ---
PATIENT BROUGHT BACK FROM DIALYSIS AT THIS TIME. CXR COMPLETED AT BEDSIDE AT THIS TIME. AWAITING RESULTS.
--- NOTE | 2019-04-09 15:16 | NUR ---
ON UNIT FOR ROUNDS. PAGED AND SPOKE TO HIM UPON HIS RETURN CALL TO THE UNIT. WILL BE IN AROUND 6PM [facility] TO EXCHANGE THE TRIALYSIS CATHETER. REAL ESTATE EXECUTIVE ASSISTANT NOTIFIED.
[2019-04-09 16:42] VITALS: BP 150/67
--- NOTE | 2019-04-09 18:23 | NUR ---
RESTING IN BED. EASILY AROUSED WHEN CALLING HER NAME. URINE YELLOW AND CLEAR, 700 OUT FOR THIS SHIFT, NO IV FLUIDS, LITTLE PO INTAKE. PATIENT DID RECEIVE IV ALBUMIN THIS AM. NO DISTRESS. CALL LIGHT WITHIN REACH.
--- NOTE | 2019-04-09 19:09 | NUR ---
RECIEVED BEDSIDE REPORT. PT UP IN BED WITH EYES CLOSED AND HOB ELEVATED. O2@ 3 LITERS PER N/C IN PLACE. IV TO LEFT AC AND LEFT UPPER ARM SL. TELEMETRY IN PLACE.INR STILL ELEVATED AND MD AWARE. CONT TO HAVE GENERALIZED EDEMA. BUTTOCKS MAYA AND STGE 2 PI TO BUTTOCKS. RIGHT IJ INSERTED YESTERDAY AND REPORTED BY OFF GOING THAT NOT WORKING WHEN DIALYSIS ATTEMPTED TO USE IT. WILL CONT POC.
--- NOTE | 2019-04-09 19:41 | NUR ---
SPOKE WITH DR. CLANCY AND STATED HEWIMARGY BE HERE IN MORNING TO REPLACE TRIALYSIS. WILL NOTIFY FAMILY.
--- NOTE | 2019-04-09 19:52 | NUR ---
FAMILY NOTIFIED OF DR. CLANCY BEING HERE IN AM TO REPLACE TRIALYSIS. VOICED UNDERSTANDING.
[2019-04-09 20:05] VITALS: BP 164/71
[2019-04-10] VITALS: BP 158/65
[2019-04-10 04:00] VITALS: BP 152/54
[2019-04-10 05:49] LABS: BASOPHILS 0.5 % (0-2); IMMATURE GRANULOCYTES 0.3 % (0-5); LYMPHOCYTES 12.2 % (15-50); MCH 29.5 pg (26.0-34.0); MCHC 33.3 g/dL (31.0-37.0); MCV 88.5 fL (80.0-100.0); MEAN PLATELET VOLUME 10.3 fL (7.4-10.4); MONOCYTES 11.5 % (2-11); NEUTROPHILS 67.5 % (40-80); PLATELET COUNT 197 10x3/uL (130-400); RBC 3.39 10x6/uL (4.00-5.40); RDW 13.4 % (11.5-14.5); WBC 8.8 10x3/uL (4.8-10.8)
[2019-04-10 06:06] LABS: ANION GAP 17.3 mmol/L (8-16); CALCIUM 7.6 mg/dL (8.5-10.1); CARBON DIOXIDE 28.1 mmol/L (21.0-32.0); CREATININE - SERUM 12.9 mg/dL (0.6-1.3); POTASSIUM - SERUM 3.4 mmol/L (3.5-5.1)
[2019-04-10 06:12] LABS: INR 3.98 (0.85-1.17)
--- NOTE | 2019-04-10 07:00 | NUR ---
RECEIVED REPORT. ASSUMED CARE OF PATIENT. CALL LIGHT WITHIN REACH. PATIENT RESTING WITH EYES CLOSED, HOB ELEVATED. PATIENT WITH HER PARENTS AT BEDSIDE. PATIENT REMAINS EDEMAOUS, NO VERBAL RESPONSE BUT WILL OPEN EYES TO VERBAL STIMULI. F/C PATENT. NO DISTRESS.
[2019-04-10 08:37] VITALS: BP 154/73
--- NOTE | 2019-04-10 09:32 | NUR ---
TRIALYSIS CATHETER EXCHANGE COMPLETED AT THIS TIME. PATIENT TOLERATED PROCEDURE WELL. CXR ORDERED TO CONFIRM PLACEMENT. PATIENT RECEIVING BED BATH AT THIS TIME. BIOPATCH VISIBLE THROUGH DRESSING. CALL LIGHT WITHIN REACH. NO DISTRESS.
--- NOTE | 2019-04-10 11:00 | NUR ---
PATIENT OOB AND SITTING TO CHAIR AT BEDSIDE WITH BEDSIDE TABLE IN FRONT OF HER. PHYSICAL THERAPY GOT PATIENT UP AND WILL SEE IF PATIENT CAN TOLERATE BEING OOB FOR AT LEAST 1 HOUR. PATIENTS FATHER CALLED TO CHECK ON HER AND NOTIFIED THAT SHE IS SITTING UP TO CHAIR. PATIENTS FATHER EXCITED. BACK TO SIT WITH HIS DAUGHTER SOON. NO DISTRESS. CALL LIGHT WITHIN REACH.
[2019-04-10 12:41] VITALS: BP 175/77
--- NOTE | 2019-04-10 14:00 | NUR ---
PATIENT BACK TO BED AT THIS TIME VIA THERAPY. PATIENT TOLERATED SITTING UP IN CHAIR WELL. PATIENTS DAD AT BEDSIDE. CALL LIGHT WITHIN REACH. NO DISTRESS.
[2019-04-10 15:13] VITALS: BP 149/62
--- NOTE | 2019-04-10 17:22 | NUR ---
AWAITING DIALYSIS NURSE TO CALL FOR PATIENT TO BE TRANSPORTED TO DIALYSIS SUIT. PATIENT SITTIN UP IN BED CONSUMING PM MEAL WITH HELP OF HER FATHER. NO DISTRESS.L CALL LIGHT WITHIN REACH. DENIES NEEDS.
--- NOTE | 2019-04-10 19:10 | NUR ---
PT BROUGHT UP FROM DIALYSIS WITH NURSE AND PT MOVED TO CV 08 AND CONNECTED TO THE MONITOR
--- NOTE | 2019-04-10 19:20 | NUR ---
DR. CLANCY AT BEDSIDE PREPARING FOR TRIALYSIS INSERTION.
--- NOTE | 2019-04-10 22:57 | NUR ---
DIALYSIS NURSE ADVISED THAT THE PATIENT WAS DONE WITH HD AND WAS READY TO BE TAKEN TO HER TO HER ROOM. MERARY ESTRADA ON MED 2 WAS CALLED AND UPDATED
--- NOTE | 2019-04-10 23:23 | NUR ---
PATIENT'S FIRST HEMODIALYSIS TREATMENT COMPLETED, TOLERATED WELL, NET FLUID REMOVAL OF 1700ML. PATIENT WAS HAVING FREQUENT PVC'S BEFORE, DURING, AND POST PROCEDURE (15-30/MIN). BLOOD RETURNED, LINES FLUSHED, HEPARIN DWELLING IN BOTH LUMENS OF GROIN CATHETER. I WAS HAVING DIFFICULTY GETTING BLOOD PRESSURE READINGS ON PATIENT WHICH I ACCREDITED TO HER BEING SO EDEMATOUS, THE FREQUENT PVCS, AND I MORE OR LESS HAD TO HOLD HER ARM DOWN TO KEEP HER FROM BENDING IT. I WAS A LITTLE RESERVED ON FLUID REMOVAL DUE TO DIFFICULTY GETTING BLOOD PRESSURE READINGS AT TIMES AND THIS WAS PATIENT'S FIRST TREATMENT.
--- NOTE | 2019-04-10 23:46 | NUR ---
PT RETURNED TO ROOM FROM CVICU. RIGHT GROIN TIALYSIS IN PLACE. DRESSING C/D/I. MOTHER AT BEDSIDE. NO S/S OF DISTRESS NOTED. CALL LIGHT IN REACH. WILL CTM.
[2019-04-11] VITALS: BP 170/76
[2019-04-11 04:00] VITALS: BP 183/76
[2019-04-11 06:49] LABS: BASOPHILS 0.4 % (0-2); EOSINOPHILS 4.6 % (0-7); HEMATOCRIT 28.1 % (36.0-48.0); HEMOGLOBIN 9.5 g/dL (12-16); IMMATURE GRANULOCYTES 0.4 % (0-5); LYMPHOCYTES 8.7 % (15-50); MCH 29.5 pg (26.0-34.0); MCHC 33.8 g/dL (31.0-37.0); MCV 87.3 fL (80.0-100.0); MEAN PLATELET VOLUME 10.4 fL (7.4-10.4); MONOCYTES 7.6 % (2-11); NEUTROPHILS 78.3 % (40-80); PLATELET COUNT 214 10x3/uL (130-400); RBC 3.22 10x6/uL (4.00-5.40); RDW 13.3 % (11.5-14.5); WBC 10.5 10x3/uL (4.8-10.8)
[2019-04-11 07:00] LABS: INR 3.71 (0.85-1.17); PROTIME 35.9 SECONDS (11.6-15.0)
[2019-04-11 07:07] LABS: CALCIUM 7.9 mg/dL (8.5-10.1); CREATININE - SERUM 10.6 mg/dL (0.6-1.3)
[2019-04-11 08:02] VITALS: BP 180/83
--- NOTE | 2019-04-11 09:45 | NUR ---
PT RESTING IN BED, SHIFT ASSESSMENT PERFORMED. PT VERY LETHARGIC AND HARD TO AROUSE. FAMILY STATES THIS HAS BEEN HER NORMAL SINCE HOSPITAL ADMISSION. SAT PT STRAIGHT UP IN BED AND ATTEMPTED TO GIVE HER WATER. PT HELD WATER IN HER MOUTH AND REQUIRED MAX CUEING TO SWALLOW. NURSE ATTEMPTED TO GIVE PT HER MEDICATION THAT WAS CRUSHED IN APPLESAUCE AND SHE IMMEDIATLY STARTED COUGHING. NURSE SUCTIONED OUT HER MOUTH. ALLOWED PT TO REST IN AN UPRIGHT POSITION AND SHE CONTINUED TO COUGH. LEFT HOB ELEVATED AT 50 DEGREES. FAMILY AT BEDSIDE. WILL CONT TO FOLLOW POC
--- NOTE | 2019-04-11 12:08 | NUR ---
OT NOTE: PT VERY LETHARGIC TODAY. NON RESPONSIVE TO VERBAL STIMULI, BUT SLIGHTLY RESPONSIVE TO TACTILE. ASSISTED PT TO EOB WITH AUTOMOTIVE GLASS MECHANIC ASSIST X 2. SITTING BALANCE WAS POOR INITIALLY, HOWEVER, WITH TACTILE CORRECTING, PT WAS FINALLY ABLE TO SIT UNSUPPORTED. SLOW PROCESSING AND STILL LETHARGIC WHILE SITTING UP. UNSURE OF EXACT AMOUNT OF COGNITIVE IMPAIREMENT ELECTRON MICROSCOPIST, HOWEVER, PT WAS RESIDENT OF NURSING FACILTIY. MAX ASSIST WITH ALL GROOMING ATTEMPTS. PRACTICED ROLLING FROM SIDE TO SIDE IN BED AND HAVING PT REACH FOR RAILS AND PULL HERSELF OVER. ATTEMPTED UE ROM EXS, PT WAS WEAK AND ONLY ABLE TO PERFORM 2-3 REPS AT A TIME. PT WAS ABLE TO VERBALIZE HER NAME. ATTEMPTED TO VERBALIZE WHERE SHE WAS FROM BUT IT WAS UNINTELLIGABLE. CHOSE NOT TO SIT PT UP IN CHAIR DUE TO LETHARGY. ROZ BOATENG, OTR/L
--- NOTE | 2019-04-11 12:20 | NUR ---
PT RESTING IN BED, FAMILY AT BEDSIDE. SAT PT UPRIGHT AND ATTEMPTED TO GIVE HER A SIP OF SPRITE. PT IMMEDIATLY BEGAN COUGHING. LEFT PT SITTING UPRIGHT WITH NO MORE SIPS AND SHE STEADLY COUGHED. ADVISED FAMILY NOT TO FEED PT AND THAT NURSE WILL CONTACT SPEECH THERAPY
[2019-04-11 13:09] VITALS: BP 188/96
--- NOTE | 2019-04-11 16:15 | NUR ---
PT LEFT FLOOR FOR DIALYSIS
--- NOTE | 2019-04-11 16:57 | NUR ---
SPOKE TO ALLY WITH SPEECH THERAPY REGAURDING PT COUGHING AFTER DRINKING THIN LIQUIDS AND EATING APPLESAUCE. ALLY THANKED NURSE AND WILL EVALUATE PT TOMORROW
[2019-04-11 20:00] VITALS: BP 101/71
[2019-04-12] VITALS: BP 180/58
--- NOTE | 2019-04-12 04:00 | NUR ---
I have reviewed this patient and I concur with the Shift Assessment completed by the Licensed Practical Nurse today this shift.
[2019-04-12 04:34] VITALS: BP 179/77
--- NOTE | 2019-04-12 04:44 | NUR ---
PT SITTING UP IN BED ALERT, CONFUSED, AND LETHARGIC. NO ACUTE S/S OF DISTRESS AT THIS TIME. MOTHER AT BEDSIDE. VITALS STABLE. BED LOW CALL LIGHT WITHIN REACH. WILL CONTINUE TO MONITOR.
[2019-04-12 06:11] LABS: BASOPHILS 0.4 % (0-2); EOSINOPHILS 5.7 % (0-7); HEMATOCRIT 28.8 % (36.0-48.0); HEMOGLOBIN 9.7 g/dL (12-16); IMMATURE GRANULOCYTES 0.4 % (0-5); LYMPHOCYTES 8.9 % (15-50); MCH 29.5 pg (26.0-34.0); MCHC 33.7 g/dL (31.0-37.0); MCV 87.5 fL (80.0-100.0); MONOCYTES 8.3 % (2-11); NEUTROPHILS 76.3 % (40-80); PLATELET COUNT 235 10x3/uL (130-400); RBC 3.29 10x6/uL (4.00-5.40); RDW 13.4 % (11.5-14.5); WBC 11.3 10x3/uL (4.8-10.8)
[2019-04-12 06:32] LABS: INR 2.54 (0.85-1.17); PROTIME 26.6 SECONDS (11.6-15.0)
[2019-04-12 06:33] LABS: ANION GAP 14.7 mmol/L (8-16); CALCIUM 8.2 mg/dL (8.5-10.1)
[2019-04-12 06:41] LABS: CREATININE - SERUM 7.9 mg/dL (0.6-1.3)
[2019-04-12 06:42] LABS: POTASSIUM - SERUM 2.7 mmol/L (3.5-5.1)
--- NOTE | 2019-04-12 07:30 | NUR ---
REPORT RECIEVED. PT RESTING QUIETLY WITH EYES CLOSED. SHE IS CURRENTLY ON 3L NC AND HAS L UPPER ARM PIV THAT IS SL. SHE ALSO HAS A R NECK AND A R GROIN TRIALYSIS CATH. SHE HAS A IQBAL DRAINING URINE. BED LOCKED AND IN LOWEST POSITION, CALL LIGHT WTIHIN REACH. WILL CTM
[2019-04-12 08:00] VITALS: BP 195/88
--- NOTE | 2019-04-12 13:08 | NUR ---
PATIENT NOTED TO HAVING BRUISING AND SCABBY AREAS ON ARMS, [place].
--- NOTE | 2019-04-12 14:11 | MORECARE ---
CASE MANAGEMENT DISCHARGE SUMMARY PATIENT: ANEESH FRYE UNIT: [id number] ADM DATE: 04/02/19 AGE: 58 : 56 SEX: F ROOM/BED: D.2688 AUTHOR: SHANA,DOC PHYSICIAN: REFERRING PHYSICIAN: PETRA SOMMERS MD DATE OF SERVICE: 04/12/19 Discharge Plan Patient Name: ANEESH FRYE Facility: [facility]:[place] : 1960 Planned Disposition: Nursing Home Facility Anticipated Discharge Date: Discharge Date: Expected LOS: Initial Reviewer: [id number] Initial Review Date: 04/06/2019 Generated: 04/12/19 3:11 pm Comments DCP- Discharge Planning Updated by [email or web address]: Donya Barajas on 04/08/19 2:[address] Patient Name: ANEESH FRYE Admission Status: ER Accout number: [id number] Admission Date: 04-02-2019 : 1960 Admission Diagnosis:ACUTE KIDNEY FAILURE, UNSPECIFIED Attending: NEGRA SOMMERS Current LOS: 6 Anticipated DC Date: Planned Disposition: Primary Insurance: [employer] [facility] PFFS Discharge Planning Comments: ANGELLA SIGNED FOR [facility]. PATIENT STARTING DIALYSIS TODAY. SOO APPROVED AND SCANNED INTO [employer]. CM WILL FAX REFERRAL. School Age Program Associate: Donya Barajas DCP- Discharge Planning Updated by [email or web address]: Donya Barajas on 04/07/19 2:[address] Patient Name: ANEESH FRYE Admission Status: ER Accout number: [id number] Admission Date: 04-02-2019 : 1960 Admission Diagnosis:ACUTE KIDNEY FAILURE, UNSPECIFIED Attending: NEGRA SOMMERS Current LOS: 5 Anticipated DC Date: Planned Disposition: Primary Insurance: [employer] [facility] PFFS Discharge Planning Comments: CM MET WITH PATIENT'S FATHER SELINA FRYE, HE STATES HE IS HER GAURDIAN. STATES WOULD LIKE HER TO BE SEEN BY A PSYCH DOCTOR. I GAVE HIM A LIST OF SNF TO LOOK OVER, HE IS GETTING BACK WITH ME WITH HIS CHOICE. I FILLED OUT THE SOO TODAY AND FAXED IT. CM WILL FOLLOW. School Age Program Associate: Donya Barajas DCP- Discharge Planning Updated by [email or web address]: Donya Barajas on 04/06/19 1:[address] Patient Name: ANEESH FRYE Admission Status: ER Accout number: [id number] Admission Date: 04-02-2019 : 1960 Admission Diagnosis:ACUTE KIDNEY FAILURE, UNSPECIFIED Attending: NEGRA SOMMERS Current LOS: 4 Anticipated DC Date: Planned Disposition: Primary Insurance: [employer] [facility] PFFS Discharge Planning Comments: CM MET WITH PATIENT ABOUT DC PLANNING/NEEDS. HER SISTER HORACE STATED THEIR PARENTS ABRAM FRYE HAVE GAURDIANSHIP. STATES SISTER HAS MR AND SCHIZOPHRENIA AND LIVES IN A CORRECTION, SISTER IS CONCERNED PATIENT MAY NEED REHAB AFTER DISCHARGE. STATES WHEN PARENTS ARRIVE THEY WILL CONTACT CM. School Age Program Associate: Donya Barajas DCPIA - Discharge Planning Initial Assessment Updated by [email or web address]: Donya Barajas on 04/06/19 2:18 pm * Is the patient Alert and Oriented? No * Preadmission Environment Custodial * List name and contact numbers for known caregivers / representatives who currently or will assist patient after discharge: ABRAM FRYE, PARENTS, Last DP export: 04/08/19 2:49 p Patient Name: ANEESH FRYE Page 24153 at 1411 All edits/amendments must be made on the electronic document DICTATION DATE: 04/12/191410 RN SURGERY: SAIMA 04/12/19 141 RPT#: [id number] DC DATE: STATUS: ADM IN [facility] [address] [place] [address] END OF REPORT
[2019-04-12 14:20] VITALS: BP 162/95
--- NOTE | 2019-04-12 15:17 | NUR ---
OT NOTE: PT TOO LETHARGIC THIS AM. UNABLE TO KEEP PT AWAKE. SHE WOULD OPEN EYES BUT UNABLE TO STAY AWAKE. ROZ BOATENG, OTR/L
--- NOTE | 2019-04-12 15:47 | NUR ---
I have reviewed this patient and I concur with the Shift Assessment completed by the Licensed Practical Nurse today this shift.
[2019-04-12 16:07] VITALS: BP 172/77
--- NOTE | 2019-04-12 19:17 | NUR ---
RECIEVED UP IN BED WITH EYES CLOSED. EASILY AROUSES TO VERBAL STIMULI. ABLE TO ANSWER SOME QUESTIONS. ORIENTED TO PERSON AND PLACE. MOTHER AT BEDSIDE. BOWEL SOUNDS HYPERACTIVE. REMAINS NPO. HEMOSPLIT TO RIGHT UPPER CHEST AND TRIALYSIS TO RIGHT GROIN. IV TO LEFT UPPER ARM SL. TELEMETRY IN PLACE. DENIES ANY NEEDS AT THIS TIME.
[2019-04-12 20:22] VITALS: BP 180/70
[2019-04-13] VITALS: BP 152/77
[2019-04-13 05:24] VITALS: BP 158/99
[2019-04-13 06:31] LABS: BASOPHILS 0.3 % (0-2); EOSINOPHILS 5.9 % (0-7); HEMATOCRIT 27.6 % (36.0-48.0); HEMOGLOBIN 9.3 g/dL (12-16); IMMATURE GRANULOCYTES 0.2 % (0-5); LYMPHOCYTES 5.6 % (15-50); MCH 29.8 pg (26.0-34.0); MCHC 33.7 g/dL (31.0-37.0); MCV 88.5 fL (80.0-100.0); MEAN PLATELET VOLUME 10.2 fL (7.4-10.4); MONOCYTES 7.6 % (2-11); NEUTROPHILS 80.4 % (40-80); PLATELET COUNT 249 10x3/uL (130-400); RBC 3.12 10x6/uL (4.00-5.40); RDW 13.8 % (11.5-14.5); WBC 12.1 10x3/uL (4.8-10.8)
[2019-04-13 06:49] LABS: ANION GAP 15.7 mmol/L (8-16); CALCIUM 8.2 mg/dL (8.5-10.1); CARBON DIOXIDE 29.2 mmol/L (21.0-32.0); CREATININE - SERUM 8.2 mg/dL (0.6-1.3)
[2019-04-13 06:52] LABS: POTASSIUM - SERUM 2.9 mmol/L (3.5-5.1)
--- NOTE | 2019-04-13 07:30 | NUR ---
A/A/OX2. DENIES ANY PAIN OR NEW PROBLEMS AT THIS TIME. NO REQUESTS VOICED. SPEECH IS SOMEWHAT GARBLED, BUT ABLE TO UNDERSTAND SOME WORDS. ASSESSMENT COMPLETED AND WILL CONTINUE POC. FAMILY MEMBER AT BEDSIDE.
--- NOTE | 2019-04-13 07:30 | NUR ---
A/A/OX4. DENIES ANY PAIN OR DISCOMFORT AT THIS TIME AND NO REQUESTS VOICED. LAYING IN BED ON BACK WATCHING TV. IQBAL PATENT AND DRAINING CLEAR LIGHT [place] URINE. FAMILY MEMBER AT BEDSIDE.
[2019-04-13 08:20] VITALS: BP 180/40
--- NOTE | 2019-04-13 08:45 | NUR ---
BASIL PETROGRAPHER NOTIFIED OF K+ LEVEL OF 2.9. NO NEW ORDERS RECEIVED.
--- NOTE | 2019-04-13 08:57 | MORECARE ---
CASE MANAGEMENT DISCHARGE SUMMARY PATIENT: ANEESH FRYE UNIT: [id number] ADM DATE: 04/02/19 AGE: 58 : 56 SEX: F ROOM/BED: D.1352 AUTHOR: ZAC SALDANA PHYSICIAN: REFERRING PHYSICIAN: PETRA SOMMERS MD DATE OF SERVICE: 04/13/19 Discharge Plan Patient Name: ANEESH FRYE Facility: [facility]:[place] : 1960 Planned Disposition: Halfway Facility Anticipated Discharge Date: Discharge Date: Expected LOS: Initial Reviewer: [email or web address] Initial Review Date: 04/06/2019 Generated: 04/13/19 9:57 am Comments DCP- Discharge Planning Updated by [id number]: Hernesto Camacho on 04/13/19 7:[address] Patient Name: ANEESH FRYE Encounter No: [id number] : 1960 Primary Insurance: [employer] [facility] PF Anticipated DC Date: Planned Disposition: Halfway Facility External Planned Provider: [facility], MEDICARE REHAB BED DCP follow-up note: ON 04-12-19, [facility] INFORMED MERARY RAINES THAT [facility] DID NOT RECEIVE REHAB REFERRAL. MERARY RAINES PROVIDED REFERRAL INFORMATION TO [facility]. CM FAXED UPDATE TO [facility] ON 04-13-19. CM WAITING ADMISSION DETERMINATION FROM [facility] WELL INSURANCE DETERMINATION. IF ACCEPTED AT [facility], WILL NEED OUTPATIENT DIALYSIS ARRANGMENT THAT WILL SUIT THE NURSING FACILITY SCHEDULE. SHAYY De Leon DCP- Discharge Planning Updated by [id number]: Donya Barajas on 04/08/19 2:[address] Patient Name: ANEESH FRYE Admission Status: ER Accout number: [id number] Admission Date: 04-02-2019 : 1960 Admission Diagnosis:ACUTE KIDNEY FAILURE, UNSPECIFIED Attending: NEGRA SOMMERS Current LOS: 6 Anticipated DC Date: Planned Disposition: Primary Insurance: [employer] [facility] PFFS Discharge Planning Comments: ANGELLA SIGNED FOR [facility]. PATIENT STARTING DIALYSIS TODAY. SOO APPROVED AND SCANNED INTO [facility]. CM WILL FAX REFERRAL. Front End Ui Developer: Donya Barajas DCP- Discharge Planning Updated by [id number]: Donya Barajas on 04/07/19 2:[address] Patient Name: ANEESH FRYE Admission Status: ER Accout number: [id number] Admission Date: 04-02-2019 : 1960 Admission Diagnosis:ACUTE KIDNEY FAILURE, UNSPECIFIED Attending: NEGRA SOMMERS Current LOS: 5 Anticipated DC Date: Planned Disposition: Primary Insurance: [employer] [facility] PFFS Discharge Planning Comments: CM MET WITH PATIENT'S FATHER SELINA FRYE, HE STATES HE IS HER GAURDIAN. STATES WOULD LIKE HER TO BE SEEN BY A PSYCH DOCTOR. I GAVE HIM A LIST OF SNF TO LOOK OVER, HE IS GETTING BACK WITH ME WITH HIS CHOICE. I FILLED OUT THE SOO TODAY AND FAXED IT. CM WILL FOLLOW. Front End Ui Developer: Donya Barajas DCP- Discharge Planning Updated by [id number]: Donya Barajas on 04/06/19 1:[address] Patient Name: ANEESH FRYE Admission Status: ER Accout number: [id number] Admission Date: 04-02-2019 : 1960 Admission Diagnosis:ACUTE KIDNEY FAILURE, UNSPECIFIED Attending: NEGRA SOMMERS Current LOS: 4 Anticipated DC Date: Planned Disposition: Primary Insurance: [employer] [facility] PFFS Discharge Planning Comments: CM MET WITH PATIENT ABOUT DC PLANNING/NEEDS. HER SISTER HORACE STATED THEIR PARENTS ABRAM FRYE HAVE GAURDIANSHIP. STATES SISTER HAS MR AND SCHIZOPHRENIA AND LIVES IN A LONGTERM, SISTER IS CONCERNED PATIENT MAY NEED REHAB AFTER DISCHARGE. STATES WHEN PARENTS ARRIVE THEY WILL CONTACT CM. Front End Ui Developer: Donya Barajas DCPIA - Discharge Planning Initial Assessment Updated by [id number]: Donya Barajas on 04/06/19 2:18 pm * Is the patient Alert and Oriented? No * Preadmission Environment Residential * List name and contact numbers for known caregivers / representatives who currently or will assist patient after discharge: ABRAM FRYE, PARENTS, Last DP export: 04/12/19 1:11 p Patient Name: ANEESH FRYE Page [id number] Electronically Signed by ZAC [facility] [place] [place] on 04/13/19 at 0857 All edits/amendments must be made on the electronic document DICTATION DATE: 04/13/19856 REVIEW ENGINEER: SAIMA 04/13/19856 RPT#: [id number] DC DATE: STATUS: ADM IN [facility] [address] [place] [address] END OF REPORT
--- NOTE | 2019-04-13 10:30 | NUR ---
TO DIALYSIS VIA BED
[2019-04-13 12:47] LABS: INR 2.35 (0.85-1.17); PROTIME 25.1 SECONDS (11.6-15.0)
--- NOTE | 2019-04-13 12:58 | NUR ---
Nutrition Follow-up: Staff concerned about PO intake safety; now NPO. ST rec PEG tube placement 2/2 h/o poor PO intake and duration of alternative nutrition needed. Wt: 215# Last BM: 04/03 per chart Labs noted: Glu 112, K+ 2.9, Ca 8.2 Meds noted: Bumex, KCl, Albumin Agree with ST rec of PEG placement. RD available to assist with recommendations. Will monitor.
--- NOTE | 2019-04-13 14:36 | NUR ---
I have reviewed this patient and I concur with the Shift Assessment completed by the Licensed Practical Nurse today this shift.
--- NOTE | 2019-04-13 15:07 | NUR ---
RETURNED TO ROOM VIA BED FROM DIALYSIS
--- NOTE | 2019-04-13 15:37 | MORECARE ---
CASE MANAGEMENT DISCHARGE SUMMARY PATIENT: ANEESH FRYE UNIT: [id number] ADM DATE: 04/02/19 AGE: 58 : 56 SEX: F ROOM/BED: D.5178 AUTHOR: SHANA,DOC PHYSICIAN: REFERRING PHYSICIAN: PETRA SOMMERS MD DATE OF SERVICE: 04/13/19 Discharge Plan Patient Name: ANEESH FRYE Facility: [facility]:[place] : 1960 Planned Disposition: Intermediate Facility Anticipated Discharge Date: Discharge Date: Expected LOS: Initial Reviewer: [email or web address] Initial Review Date: 04/06/2019 Generated: 04/13/19 4:36 pm Comments DCP- Discharge Planning Updated by [email or web address]: Caitlin Raines on 04/13/19 2:[address] @ 1507, RECEIVED A CALL FROM YASSINE WITH [facility]. SHE STATED THEY WOULD NOT BE ABLE TO ACCEPT THE PATIENT BECAUSE THEY CANNOT MEET HER NEDS. I HAVE RELAYED THIS MESSAGE TO TRE VALVERDE CASEMANASHELY. DCP- Discharge Planning Updated by [id number]: Hernesto Camacho on 04/13/19 7:[address] Patient Name: ANEESH FRYE Encounter No: [id number] : 1960 Primary Insurance: [employer] [facility] PF Anticipated DC Date: Planned Disposition: Intermediate Facility External Planned Provider: [facility], MEDICARE REHAB BED DCP follow-up note: ON 04-12-19, [facility] INFORMED MERARY RAINES THAT [facility] DID NOT RECEIVE REHAB REFERRAL. MERARY RAINES PROVIDED REFERRAL INFORMATION TO [facility]. CM FAXED UPDATE TO [facility] ON 04-13-19. ZHAO WAITING ADMISSION DETERMINATION FROM [facility] WELL INSURANCE DETERMINATION. IF ACCEPTED AT [facility], WILL NEED OUTPATIENT DIALYSIS ARRANGMENT THAT WILL SUIT THE NURSING FACILITY SCHEDULE. SHAYY De Leon DCP- Discharge Planning Updated by [email or web address]: Donya Barajas on 04/08/19 2:[address] Patient Name: ANEESH FRYE Admission Status: ER Accout number: [id number] Admission Date: 04-02-2019 : 1960 Admission Diagnosis:ACUTE KIDNEY FAILURE, UNSPECIFIED Attending: NEGRA SOMMERS Current LOS: 6 Anticipated DC Date: Planned Disposition: Primary Insurance: [email or web address] [facility] PFFS Discharge Planning Comments: ANGELLA SIGNED FOR [facility]. PATIENT STARTING DIALYSIS TODAY. SOO APPROVED AND SCANNED INTO [employer]. CM WILL FAX REFERRAL. Skidder Runner: Donya Barajas DCP- Discharge Planning Updated by [email or web address]: Donya Barajas on 04/07/19 2:[address] Patient Name: ANEESH FRYE Admission Status: ER Accout number: [id number] Admission Date: 04-02-2019 : 1960 Admission Diagnosis:ACUTE KIDNEY FAILURE, UNSPECIFIED Attending: NEGRA SOMMERS Current LOS: 5 Anticipated DC Date: Planned Disposition: Primary Insurance: [email or web address] [facility] PFFS Discharge Planning Comments: CM MET WITH PATIENT'S FATHER SELINA FRYE, HE STATES HE IS HER GAURDIAN. STATES WOULD LIKE HER TO BE SEEN BY A PSYCH DOCTOR. I GAVE HIM A LIST OF SNF TO LOOK OVER, HE IS GETTING BACK WITH ME WITH HIS CHOICE. I FILLED OUT THE SOO TODAY AND FAXED IT. CM WILL FOLLOW. Skidder Runner: Donya Barajas DCP- Discharge Planning Updated by [email or web address]: Donya Barajas on 04/06/19 1:[address] Patient Name: ANEESH FRYE Admission Status: ER Accout number: [id number] Admission Date: 04-02-2019 : 1960 Admission Diagnosis:ACUTE KIDNEY FAILURE, UNSPECIFIED Attending: NEGRA SOMMERS Current LOS: 4 Anticipated DC Date: Planned Disposition: Primary Insurance: [email or web address] [facility] PFFS Discharge Planning Comments: CM MET WITH PATIENT ABOUT DC PLANNING/NEEDS. HER SISTER HORACE STATED THEIR PARENTS ABRAM FRYE HAVE GAURDIANSHIP. STATES SISTER HAS MR AND SCHIZOPHRENIA AND LIVES IN A FPC, SISTER IS CONCERNED PATIENT MAY NEED REHAB AFTER DISCHARGE. STATES WHEN PARENTS ARRIVE THEY WILL CONTACT CM. Skidder Runner: Donya Barajas DCPIA - Discharge Planning Initial Assessment Updated by [email or web address]: Donya Barajas on 04/06/19 2:18 pm * Is the patient Alert and Oriented? No * Preadmission Environment Nursing Home * List name and contact numbers for known caregivers / representatives who currently or will assist patient after discharge: ABRAM FRYE, PARENTS, Last DP export: 04/13/19 7:57 a Patient Name: ANEESH FRYE Page [phone] at 1537 All edits/amendments must be made on the electronic document DICTATION DATE: 04/13/191535 MITERING MACHINE OPERATOR: SAIMA 04/13/191535 RPT#: [id number] DC DATE: STATUS: ADM IN [facility] [address] [place] [address] END OF REPORT
[2019-04-13 16:15] VITALS: BP 153/78
[2019-04-13 17:40] LABS: MAGNESIUM - SERUM 1.8 mg/dL (1.8-2.4); POTASSIUM - SERUM 3.1 mmol/L (3.5-5.1)
--- NOTE | 2019-04-13 18:21 | NUR ---
BASIL NOTIFIED OF K+ LEVEL OF 3.1. ORDER RECEIVED FOR 40 MEQ IV AND GLORY IN AM. NO OTHER ORDERS RECEIVED.
[2019-04-13 20:00] VITALS: BP 150/68
--- NOTE | 2019-04-13 20:11 | NUR ---
PT SITTING UP IN BED ALERT AND ORIENTED. MOTHER AT BEDSIDE FEEDING HER A BANNANA AND MINILLA COOKIES. MONITORING FOR FOOD POCKETING. PT RR EVEN AND UNLABORED AT THIS TIME. MOTHER UNAWARE OF PEG TUBE PLACEMENT AT THIS TIME. WILL LOOK INTO FURTHER. BED LOW CALL LIGHT WITHIN REACH. WILL CONTINUE TO MONITOR.
--- NOTE | 2019-04-13 22:57 | NUR ---
PT FAMILY (MOTHER) REQUEST THAT THE PEG TUBE PLACEMENT BE PUT ON HOLD UNTIL FURTHER DISCUSSED WITH PRIMARY AND RENAL DOCTOR. PT MOTHER STATES, "I THINK SHE IS COMING AROUND, SHE'S EATING COOKIES AND BANNANA WITHOUT DIFFICULTY. I WWILL CALL DR. AYALA AND NOTIFY HIM OF CHANGES. MOTHER STATES THAT SHE HASN'T BEEN NOTIFIED OR INFORMED OF PROCEDURE. WILL CONTINUE TO MONITOR.
--- NOTE | 2019-04-13 23:03 | NUR ---
DR. AYALA NOTIFIED THAT MOTHER DIDN'T WANT PEG TUBE UNTIL A DOCTOR TALKS TO FAMILY.
[2019-04-14 00:35] VITALS: BP 155/70
[2019-04-14 04:00] VITALS: BP 153/81
[2019-04-14 05:26] LABS: BASOPHILS 0.3 % (0-2); EOSINOPHILS 7.3 % (0-7); HEMATOCRIT 27.9 % (36.0-48.0); HEMOGLOBIN 9.3 g/dL (12-16); IMMATURE GRANULOCYTES 0.2 % (0-5); LYMPHOCYTES 8.7 % (15-50); MCH 29.4 pg (26.0-34.0); MCHC 33.3 g/dL (31.0-37.0); MCV 88.3 fL (80.0-100.0); MEAN PLATELET VOLUME 10.2 fL (7.4-10.4); MONOCYTES 9.7 % (2-11); NEUTROPHILS 73.8 % (40-80); PLATELET COUNT 223 10x3/uL (130-400); RBC 3.16 10x6/uL (4.00-5.40); RDW 13.5 % (11.5-14.5); WBC 9.7 10x3/uL (4.8-10.8)
[2019-04-14 05:44] LABS: ANION GAP 14.2 mmol/L (8-16); CALCIUM 8.4 mg/dL (8.5-10.1); CARBON DIOXIDE 29.9 mmol/L (21.0-32.0); POTASSIUM - SERUM 3.1 mmol/L (3.5-5.1)
[2019-04-14 06:06] LABS: CREATININE - SERUM 5.8 mg/dL (0.6-1.3)
[2019-04-14 07:37] LABS: INR 2.02 (0.85-1.17); PROTIME 22.2 SECONDS (11.6-15.0)
--- NOTE | 2019-04-14 08:04 | NUR ---
PT SITTING UP IN BED. RR EVEN AND UNLABORED. NO DISTRESS NOTED. PT REQUESTED TO GET UP AND WALK LATER. WILL AMBULATE PT TOLERATED. PT DENIES FURTHER NEEDS OR PAIN AT THIS TIME. WILL CONTINUE TO MONITOR.
[2019-04-14 09:22] VITALS: BP 187/77
--- NOTE | 2019-04-14 09:59 | NUR ---
WAS INFORMED BY MERARY LORENZO ABOUT FAMILY REFUSING PEG TUBE PLACEMENT. PERLA ARRIETA PAGED, DIETARY SUPPLIMENT ORDERED. PHOTOENGRAVING RETOUCHER CONSULTED, STATED SHE COULD HAVE ONE CAN UNTIL SPEECH THERAPY COULD COME EVALUATE. SPEECH THERAPY NOTIFIED OF REEVALUATION REQUEST.
--- NOTE | 2019-04-14 10:07 | NUR ---
EDUCATION ON NPO ORDERS REINFORCED WITH FAMILY PER MERARY LORENZO
[2019-04-14 12:02] VITALS: BP 187/93
--- NOTE | 2019-04-14 12:06 | NUR ---
RECCIEVED VERBAL ORDER TO USE TRIALYSIS CATHETER FOR MEDICATION AND BLOOD USE PER DR. HURTADO.
--- NOTE | 2019-04-14 13:00 | NUR ---
CLEAR, MUCOUS, FROTHY STOOL NOTED. MADE DR. HURTADO AWARE OF THIS. STOOL AND URINE CULTURE COLLECTED AND SENT OFF PER GENESIS REQUEST. IQBAL CHANGED PER ORDER. CLEAR, YELLOW URINE NOTED. TRIALYSIS DRESSING CHANGED, CDI. LINENS CLEANED AND CHANGED. PT REPOSITIONED TO COMFORT AND DENIES NEEDS OR PAIN AT THIS TIME.
[2019-04-14 14:13] LABS: APPEARANCE CLEAR (CLEAR); BILIRUBIN NEGATIVE (NEGATIVE); COLOR STRAW (YELLOW); GLUCOSE NEGATIVE (NEGATIVE); KETONE NEGATIVE (NEGATIVE); NITRITE NEGATIVE (NEGATIVE); PROTEIN 1+ mg/dL (NEGATIVE); SPECIFIC GRAVITY 1.005 (1.005-1.020); UROBILINOGEN NORMAL (NORMAL)
[2019-04-14 14:21] LABS: BACTERIA FEW /hpf (NEGATIVE); EPITHELIAL CELLS NSEEN /hpf (0-5); RED CELLS - URINE 0-5 /hpf (0-5); WHITE CELLS - URINE 0-5 /hpf (NEGATIVE)
[2019-04-14 16:03] VITALS: BP 181/139
--- NOTE | 2019-04-14 19:10 | NUR ---
BEDSIDE REPORT RECEIVED FROM DAY SHIFT, PT CARE ASSUMED. INTRODUCED SELF AND WROTE NAME ON BOARD. PT LYING IN BED WITH EYES CLOSED, RR EVEN AND NONLABORED, NO S/S DISTRESS, AROUSES EASILY TO VOICE, AAOX2, REORIENTED TO PLACE AND SITUATION. DENIES PAIN OR ANY OTHER NEEDS AT THIS TIME. MOTHER AT BEDSIDE. BED IN LOWEST POSITION, SR X2, CALL LIGHT WITHIN REACH. WILL CONTINUE TO MONITOR.
[2019-04-14 20:00] VITALS: BP 118/73
[2019-04-15] VITALS: BP 148/58
[2019-04-15 04:24] VITALS: BP 181/66
[2019-04-15 06:07] LABS: BASOPHILS 0.4 % (0-2); EOSINOPHILS 7.5 % (0-7); HEMATOCRIT 26.6 % (36.0-48.0); HEMOGLOBIN 8.8 g/dL (12-16); IMMATURE GRANULOCYTES 0.1 % (0-5); LYMPHOCYTES 10.7 % (15-50); MCH 29.5 pg (26.0-34.0); MCHC 33.1 g/dL (31.0-37.0); MCV 89.3 fL (80.0-100.0); MEAN PLATELET VOLUME 9.9 fL (7.4-10.4); MONOCYTES 9.7 % (2-11); NEUTROPHILS 71.6 % (40-80); PLATELET COUNT 214 10x3/uL (130-400); RBC 2.98 10x6/uL (4.00-5.40); RDW 13.8 % (11.5-14.5); WBC 8.2 10x3/uL (4.8-10.8)
[2019-04-15 06:39] LABS: ANION GAP 13.1 mmol/L (8-16); CALCIUM 8.1 mg/dL (8.5-10.1); CARBON DIOXIDE 30.7 mmol/L (21.0-32.0); PHOSPHOROUS 5.2 mg/dL (2.5-4.9)
[2019-04-15 07:11] LABS: POTASSIUM - SERUM 2.8 mmol/L (3.5-5.1)
--- NOTE | 2019-04-15 08:21 | NUR ---
PT SITTING UP IN BED, ALERT. DENIES NEEDS OR PAIN AT THIS TIME. FAMILY AT BEDSIDE. RR EVEN AND UNLABORED. WILL CONTINUE TO MONITOR.
--- NOTE | 2019-04-15 08:22 | OP ---
PATIENT NAME: ANEESH FRYE MEDICAL RECORD: [id number] :[birth year] LOCATION:D.M2 D.2135 ADMISSION DATE:04/02/19 SURGEON: ERNESTO CLANCY MD DATE OF OPERATION: 04/12/2019 PREOPERATIVE DIAGNOSES: 1. Acute renal failure. 2. Rhabdomyolysis. 3. Neurocognitive disorder. POSTOPERATIVE DIAGNOSES: 1. Acute renal failure. 2. Rhabdomyolysis. 3. Neurocognitive disorder. PROCEDURE: 1. Right IJ 19 cm HemoSplit catheter placement. 2. Superior vena cavogram. 3. Fluoroscopic interpretation. SURGEON: Ernesto Clancy MD REPORT OF PROCEDURE: The patient had an indwelling right IJ Trialysis catheter, which was not functioning appropriately. The neck and chest were prepped and draped bilaterally including the indwelling Trialysis catheter. The sutures of the catheter were cut loose and this catheter was pulled back. An 0.035 Glidewire was advanced through the nurse port and under fluoroscopic guidance, we could see that this was encountering resistance. We shot some dye down through this cavity and it showed that there was a nonflowing cavity, most consistent with a soft tissue injury with a tunneling tract. As we pulled the catheter back further, we eventually entered the patient's right IJ and we were able to advance the 0.035 Glidewire down the IJ into the superior vena cava. We then advanced the catheter down, shot some contrast again and we could see that the superior vena cava was widely open and patent. We then made a skin incision on the patient's right chest and a 19 cm HemoSplit catheter was tunneled between this incision site and the wire exit site. The Trialysis catheter at this point have been completely removed and the dilator trocar device was placed over the wire. The wire and dilator were removed and the tips of the HemoSplit catheter were advanced through the trocar, which was eventually removed. The catheter was pulled back into good position to where the tips are resting at the right atrial superior vena caval junction. The catheter aspirated nonpulsatile dark blood and flushed easily with heparinized saline. We shot one more venacavogram and it showed good flow from the catheter out into a widely patent vena cava and right atrium. At this point, the catheter was sutured into place with 3-0 Prolenes times 2. The skin incision sites were closed with subcutaneous 5-0 Monocryl. I then placed a pursestring around the distal aspect of the catheter as it exited the skin to stop any bleeding. COMPLICATIONS: None. CONDITION: Stable. ANESTHESIA: General endotracheal. BLOOD LOSS: 30 mL. OPERATIVE REPORT [id number] ANEESH FRYE TRANSINT:[id number] Voice Confirmation ID: [id number] DOCUMENT ID: [id number] ERNESTO CLANCY MD at 0822 CC: [id number] DICTATION DATE: 04/12/19 1314 FIRST ASSIST: 04/12/19 1425 ADM IN [facility] [address] [id number]
--- NOTE | 2019-04-15 08:22 | OP ---
PATIENT NAME: ANEESH FRYE MEDICAL RECORD: [id number] :[birth year] LOCATION:D.M2 D.2135 ADMISSION DATE:04/02/19 SURGEON: ERNESTO CLANCY MD DATE OF OPERATION: 04/10/2019 PREOPERATIVE DIAGNOSES: 1. Malfunctioning right IJ Trialysis catheter. 2. Acute renal failure. 3. Rhabdomyolysis. 4. Neurocognitive disorder. POSTOPERATIVE DIAGNOSES: 1. Malfunctioning right IJ Trialysis catheter. 2. Acute renal failure. 3. Rhabdomyolysis. 4. Neurocognitive disorder. PROCEDURE: Right femoral 20 cm Trialysis catheter placement. SURGEON: Ernesto Clancy MD REPORT OF PROCEDURE: The patient's right groin was prepped and draped in sterile fashion. Using ultrasound guidance, 5 cc of 1% lidocaine was infused into the subcutaneous tissues and a needle was used to cannulate the right femoral vein. A guidewire was advanced with ease. The dilator trocar device was placed over the wire followed by the Trialysis catheter. The catheter aspirated nonpulsatile dark blood and flushed easily in all 3 ports. This was sutured into place with 4-0 nylon and dressed appropriately. COMPLICATIONS: None. CONDITION: Stable. ANESTHESIA: Local. BLOOD LOSS: Minimal. Procedure done in the ICU at the bedside. TRANSINT:[id number] Voice Confirmation ID: [id number] DOCUMENT ID: [id number] ERNESTO CLANCY MD at 0822 CC: [id number] DICTATION DATE: 04/11/19 0858 RADIUS GRINDER: 04/11/19 1102 ADM IN [address] [place] [address]
--- NOTE | 2019-04-15 08:22 | OP ---
PATIENT NAME: ANEESH FRYE MEDICAL RECORD: [id number] :[birth year] LOCATION:D.M2 D.2135 ADMISSION DATE:04/02/19 SURGEON: ERNESTO CLANCY MD DATE OF OPERATION: 04/10/2019 PREOPERATIVE DIAGNOSES: 1. Malfunctioning right IJ Trialysis catheter. 2. Acute renal failure. 3. Rhabdomyolysis. 4. Neurocognitive disorder. POSTOPERATIVE DIAGNOSES: 1. Malfunctioning right IJ Trialysis catheter. 2. Acute renal failure. 3. Rhabdomyolysis. 4. Neurocognitive disorder. PROCEDURE: Right IJ Trialysis catheter exchange. SURGEON: Ernesto Clancy MD REPORT OF PROCEDURE: The patient's right neck and indwelling 12.5 cm Trialysis catheter were prepped and draped in sterile fashion. A wire was advanced through the distal port of the Trialysis catheter and the Trialysis catheter was removed. I had some difficulty with passing the wire any further, so I elected just to pull the wire out. At this point, using ultrasound guidance, we did a re-stick of the patient's right IJ and passed the wire. Again, there was some resistance met, but it appeared to be down distally. We were eventually able to pass a 15 cm Trialysis catheter with ease. At conclusion of this, the catheter aspirated nonpulsatile dark blood and flushed easily with normal saline. We sutured the catheter into place with 4-0 nylons and dressed it appropriately. COMPLICATIONS: None. CONDITION: Stable. ANESTHESIA: Local. BLOOD LOSS: Minimal. Procedure done at the bedside. TRANSINT:[id number] Voice Confirmation ID: [id number] DOCUMENT ID: [id number] ERNESTO CLANCY MD at 0822 CC: [id number] DICTATION DATE: 04/11/19 0857 COMPATIBILITY TEST ENGINEER: 04/11/19 1100 ADM IN [id number] [place] [address]
--- NOTE | 2019-04-15 08:22 | OP ---
PATIENT NAME: ANEESH FRYE MEDICAL RECORD: [id number] :56 LOCATION:D. D.2135 ADMISSION DATE:04/02/19 SURGEON: ERNESTO CLANCY MD DATE OF OPERATION: 04/08/2019 PREOPERATIVE DIAGNOSES: 1. Acute renal failure. 2. Developmental mental delay. 3. Urinary tract infection. 4. Rhabdomyolysis. POSTOPERATIVE DIAGNOSES: 1. Acute renal failure. 2. Developmental mental delay. 3. Urinary tract infection. 4. Rhabdomyolysis. PROCEDURE: Right IJ 12.5 cm Trialysis catheter placement. SURGEON: Ernesto Clancy MD REPORT OF PROCEDURE: The patient's right neck was prepped and draped in sterile fashion, 5 mL of 1% lidocaine was infused into the subcutaneous tissues. Using ultrasound guidance, a needle was used to cannulate the right internal jugular vein and a guidewire was advanced. Over this wire, a dilator was placed followed by the triple lumen catheter. The catheter aspirated nonpulsatile dark blood and flushed easily in all 3 ports. This was sutured into place with 4-0 nylons and dressed appropriately. COMPLICATIONS: None. CONDITION: Stable. ANESTHESIA: Local. BLOOD LOSS: Minimal. Procedure done at the bedside. TRANSINT:[id number] Voice Confirmation ID: [id number] DOCUMENT ID: [id number] ERNESTO CLANCY MD at 0822 CC: [id number] DICTATION DATE: 04/08/19 1515 OBSTETRICS GYNECOLOGY PHYSICIAN: 04/09/19 0135 ADM IN [address] [place] [place] [address]
[2019-04-15 09:12] VITALS: BP 171/72
--- NOTE | 2019-04-15 09:35 | NUR ---
PT IN DIALYSIS.
--- NOTE | 2019-04-15 14:11 | NUR ---
Nutrition Follow-up: Diet advanced. ST and nurse report that pt continues to pocket food. Nurse reports pt's tongue is dry and brown. Family refusing PEG. Diet: Regular, Mechanical Soft with Ground Meat (1:1 feeding) No new wt Last BM: 04/03 per chart Labs noted: K+ 2.8, PO4 5.2, Ca 8.1 -Diet consistencies per ST. -May consider Renal diet. -Offer Nepro. -RD following.
--- NOTE | 2019-04-15 15:55 | NUR ---
SPENT SEVERAL MINUTES DISCUSSING POC WITH PT SISTER IN LAW. VERBALIZED UNDERSTANDING, NO FURTHER QUESTIONS. BLADDER TRAINING IN PROGRESS.
--- NOTE | 2019-04-15 16:26 | MORECARE ---
CASE MANAGEMENT DISCHARGE SUMMARY PATIENT: ANEESH FRYE UNIT: [id number] ADM DATE: 04/02/19 AGE: 58 : 56 SEX: F ROOM/BED: D.0854 AUTHOR: SHANA,DOC PHYSICIAN: REFERRING PHYSICIAN: PETRA SOMMERS MD DATE OF SERVICE: 04/15/19 Discharge Plan Patient Name: ANEESH FRYE Facility: [facility]:[place] : 1960 Planned Disposition: Jail Facility Anticipated Discharge Date: Discharge Date: Expected LOS: Initial Reviewer: [email or web address] Initial Review Date: 04/06/2019 Generated: 04/15/19 5:25 pm Comments DCP- Discharge Planning Updated by [email or web address]: Caitlin Raines on 04/13/19 2:[address] @ 1507, RECEIVED A CALL FROM YASSINE WITH [facility]. SHE STATED THEY WOULD NOT BE ABLE TO ACCEPT THE PATIENT BECAUSE THEY CANNOT MEET HER NEDS. I HAVE RELAYED THIS MESSAGE TO TRE VALVERDE CASEMANASHELY. DCP- Discharge Planning Updated by [email or web address]: Hernesto Camacho on 04/13/19 7:[address] Patient Name: ANEESH FRYE Encounter No: [id number] : 1960 Primary Insurance: [facility] ADVANTAGE [facility] PF Anticipated DC Date: Planned Disposition: Jail Facility External Planned Provider: [facility], MEDICARE REHAB BED DCP follow-up note: ON 04-12-19, [facility] INFORMED MERARY RAINES THAT [facility] DID NOT RECEIVE REHAB REFERRAL. MERARY RAINES PROVIDED REFERRAL INFORMATION TO [facility]. CM FAXED UPDATE TO [facility] ON 04-13-19. ZHAO WAITING ADMISSION DETERMINATION FROM [facility] WELL INSURANCE DETERMINATION. IF ACCEPTED AT [facility], WILL NEED OUTPATIENT DIALYSIS ARRANGMENT THAT WILL SUIT THE NURSING FACILITY SCHEDULE. SHAYY De Leon DCP- Discharge Planning Updated by [id number]: Donya Barajas on 04/08/19 2:[address] Patient Name: ANEESH FRYE Admission Status: ER Accout number: [id number] Admission Date: 04-02-2019 : 1960 Admission Diagnosis:ACUTE KIDNEY FAILURE, UNSPECIFIED Attending: NEGRA SOMMERS Current LOS: 6 Anticipated DC Date: Planned Disposition: Primary Insurance: [employer] [facility] PFFS Discharge Planning Comments: ANGELLA SIGNED FOR [facility]. PATIENT STARTING DIALYSIS TODAY. SOO APPROVED AND SCANNED INTO [employer]. CM WILL FAX REFERRAL. Office Specialist: Donya Barajas DCP- Discharge Planning Updated by [email or web address]: Donya Barajas on 04/07/19 2:[address] Patient Name: ANEESH FRYE Admission Status: ER Accout number: [id number] Admission Date: 04-02-2019 : 1960 Admission Diagnosis:ACUTE KIDNEY FAILURE, UNSPECIFIED Attending: NEGRA SOMMERS Current LOS: 5 Anticipated DC Date: Planned Disposition: Primary Insurance: [employer] [facility] PFFS Discharge Planning Comments: CM MET WITH PATIENT'S FATHER SELINA FRYE, HE STATES HE IS HER GAURDIAN. STATES WOULD LIKE HER TO BE SEEN BY A PSYCH DOCTOR. I GAVE HIM A LIST OF SNF TO LOOK OVER, HE IS GETTING BACK WITH ME WITH HIS CHOICE. I FILLED OUT THE SOO TODAY AND FAXED IT. CM WILL FOLLOW. Office Specialist: Donya Barajas DCP- Discharge Planning Updated by [email or web address]: Donya Barajas on 04/06/19 1:[address] Patient Name: ANEESH FRYE Admission Status: ER Accout number: [id number] Admission Date: 04-02-2019 : 1960 Admission Diagnosis:ACUTE KIDNEY FAILURE, UNSPECIFIED Attending: NEGRA SOMMERS Current LOS: 4 Anticipated DC Date: Planned Disposition: Primary Insurance: [employer] [facility] PFFS Discharge Planning Comments: CM MET WITH PATIENT ABOUT DC PLANNING/NEEDS. HER SISTER HORACE STATED THEIR PARENTS ABRAM FRYE HAVE GAURDIANSHIP. STATES SISTER HAS MR AND SCHIZOPHRENIA AND LIVES IN A CUSTODIAL, SISTER IS CONCERNED PATIENT MAY NEED REHAB AFTER DISCHARGE. STATES WHEN PARENTS ARRIVE THEY WILL CONTACT CM. Office Specialist: Donya Barajas DCPIA - Discharge Planning Initial Assessment Updated by [email or web address]: Donya Barajas on 04/06/19 2:18 pm * Is the patient Alert and Oriented? No * Preadmission Environment Nursing Home * List name and contact numbers for known caregivers / representatives who currently or will assist patient after discharge: ABRAM FRYE, PARENTS, External Providers External Provider: [facility] Next Contact Date: 04/15/2019 Service Request Date: Service Type: Resolution: Reviewer: Comments: Last DP export: 04/13/19 2:37 p Patient Name: ANEESH FRYE Page [id number] at 1626 All edits/amendments must be made on the electronic document DICTATION DATE: 04/15/191624 SPINNING DOFFER: SAIMA 04/15/191624 RPT#: [id number] DC DATE: STATUS: ADM IN [facility] [address] [place] [address] END OF REPORT
--- NOTE | 2019-04-15 16:56 | MORECARE ---
CASE MANAGEMENT DISCHARGE SUMMARY PATIENT: ANEESH FRYE UNIT: [id number] ADM DATE: 04/02/19 AGE: 58 : 56 SEX: F ROOM/BED: D.2815 AUTHOR: SHANA,DOC PHYSICIAN: REFERRING PHYSICIAN: PETRA SOMMERS MD DATE OF SERVICE: 04/15/19 Discharge Plan Patient Name: ANEESH FRYE Facility: [facility]:[place] : 1960 Planned Disposition: Longterm Facility Anticipated Discharge Date: Discharge Date: Expected LOS: Initial Reviewer: [id number] Initial Review Date: 04/06/2019 Generated: 04/15/19 5:56 pm Comments DCP- Discharge Planning Updated by [id number]: Hernesto Camacho on 04/15/19 3:[address] Patient Name: ANEESH FRYE Encounter No: [id number] : 1960 Primary Insurance: [facility] [employer] PF Anticipated DC Date: Planned Disposition: Longterm Facility External Planned Provider: [facility], MEDICARE REHAB BED DCP follow-up note: CM ATTEMPTED TO MEET WITH PT AND FAMILY IN ROOM AT 0945 HOURS, NO ONE PRESENT. CM MET WITH PT AND FAMILY IN ROOM AT ABOUT 1300 HOURS, DISCUSSED THAT [facility] WILL NOT ACCEPT PT THEY ARE NOT ABLE TO MEET PT'S NEEDS. CM DISCUSSED AVAILABILITY OF OTHER RESIDENTIAL REHABS, PROVIDED LISTING FROM MEDICARE WEBSITE OF ALL RESIDENTIAL FACILITIES WITHIN [address]ES OF [facility]. PARENTS CHOSE [facility], [facility] AND [facility]. CHOICE SIGNED. CM CALLED KYLE AT [facility], , NOTIFIED OF REFERRAL. CM FAXED REFERRAL FOR REHAB TO [facility] AT [phone]. CM WAITING ADMISSION DETERMINATION FROM [facility] IN [place]. IF ASSISTED WILL ACCEPT, PT WILL REQUIRE INSURANCE PRIOR AUTHORIZATION AND OUTPATIENT DIALYSIS UNIT ARRANGEMENT IN [place] WITH SCHEDULE ACCEPTABLE TO ASSISTED TO ACCOMODATE TRANPORATION NEEDS. Hernesto Camacho, CASE MANAGEMENT DCP- Discharge Planning Updated by [id number]: Caitlin Raines on 04/13/19 2:[address] @ 1504, RECEIVED A CALL FROM YASSINE WITH [facility]. SHE STATED THEY WOULD NOT BE ABLE TO ACCEPT THE PATIENT BECAUSE THEY CANNOT MEET HER NEDS. I HAVE RELAYED THIS MESSAGE TO TRE VALVERDE CASEMANAGER. DCP- Discharge Planning Updated by [id number]: Hernesto Camacho on 04/13/19 7:[address] Patient Name: ANEESH FRYE Encounter No: [id number] : 1960 Primary Insurance: [employer] [facility] PFFS Anticipated DC Date: Planned Disposition: Longterm Facility External Planned Provider: [facility], MEDICARE REHAB BED DCP follow-up note: ON 04-12-19, [facility] INFORMED MERARY RAINES THAT [facility] DID NOT RECEIVE REHAB REFERRAL. MERARY RAINES PROVIDED REFERRAL INFORMATION TO [facility]. CM FAXED UPDATE TO [facility] ON 04-13-19. CM WAITING ADMISSION DETERMINATION FROM [facility] WELL INSURANCE DETERMINATION. IF ACCEPTED AT [facility], WILL NEED OUTPATIENT DIALYSIS ARRANGMENT THAT WILL SUIT THE NURSING FACILITY SCHEDULE. Hernesto Camacho, CASE MANAGEMENT DCP- Discharge Planning Updated by [id number]: Donya Barajas on 04/08/19 2:[address] Patient Name: ANEESH FRYE Admission Status: ER Accout number: [id number] Admission Date: 04-02-2019 : 1960 Admission Diagnosis:ACUTE KIDNEY FAILURE, UNSPECIFIED Attending: NEGRA SOMMERS Current LOS: 6 Anticipated DC Date: Planned Disposition: Primary Insurance: [employer] [facility] PFFS Discharge Planning Comments: ANGELLA SIGNED FOR [facility]. PATIENT STARTING DIALYSIS TODAY. SOO APPROVED AND SCANNED INTO [facility]. CM WILL FAX REFERRAL. Board Saw Runner: Donya Barajas DCP- Discharge Planning Updated by [id number]: Donya Barajas on 04/07/19 2:[address] Patient Name: ANEESH FRYE Admission Status: ER Accout number: [id number] Admission Date: 04-02-2019 : 1960 Admission Diagnosis:ACUTE KIDNEY FAILURE, UNSPECIFIED Attending: NEGRA SOMMERS Current LOS: 5 Anticipated DC Date: Planned Disposition: Primary Insurance: [employer] [facility] PFFS Discharge Planning Comments: CM MET WITH PATIENT'S FATHER SELINA FRYE, HE STATES HE IS HER GAURDIAN. STATES WOULD LIKE HER TO BE SEEN BY A PSYCH DOCTOR. I GAVE HIM A LIST OF SNF TO LOOK OVER, HE IS GETTING BACK WITH ME WITH HIS CHOICE. I FILLED OUT THE SOO TODAY AND FAXED IT. CM WILL FOLLOW. Board Saw Runner: Donya Barajas DCP- Discharge Planning Updated by [id number]: Donya Barajas on 04/06/19 1:[address] Patient Name: ANEESH FRYE Admission Status: ER Accout number: [id number] Admission Date: 04-02-2019 : 1960 Admission Diagnosis:ACUTE KIDNEY FAILURE, UNSPECIFIED Attending: NEGRA SOMMERS Current LOS: 4 Anticipated DC Date: Planned Disposition: Primary Insurance: [employer] [facility] PFFS Discharge Planning Comments: CM MET WITH PATIENT ABOUT DC PLANNING/NEEDS. HER SISTER HORACE STATED THEIR PARENTS ABRAM FRYE HAVE GAURDIANSHIP. STATES SISTER HAS MR AND SCHIZOPHRENIA AND LIVES IN A ALF, SISTER IS CONCERNED PATIENT MAY NEED REHAB AFTER DISCHARGE. STATES WHEN PARENTS ARRIVE THEY WILL CONTACT CM. Board Saw Runner: Donya Barajas DCPIA - Discharge Planning Initial Assessment Updated by [id number]: Donya Barajas on 04/06/19 2:18 pm * Is the patient Alert and Oriented? No * Preadmission Environment Correction * List name and contact numbers for known caregivers / representatives who currently or will assist patient after discharge: ABRAM FRYE, PARENTS, Coverage Notice Reviewer: [id number] Jesus Camacho Notice Issued Date-Time: 04/15/2019 13:05 Notice Type: Patient Choice Letter Notice Delivered To: Family Member Relationship to Patient: Father Cytotechnologist/Cytology Supervisor Name: SELINA FRYE Delivery Method: HAND - Hand Delivered Karime Days: Prior Verbal Notification: Recipient Understood Notice: Yes Recipient Signature: Yes Med Rec Note Co-signed by Attending: Coverage Notice Comment: [facility] Last DP export: 04/15/19 3:26 p Patient Name: ANEESH FRYE Page 30702 at 1656 All edits/amendments must be made on the electronic document DICTATION DATE: 04/15/191655 RPG PROGRAMMER ANALYST: SAIMA 04/15/191655 RPT#: [id number] DC DATE: STATUS: ADM IN [facility] [address] [place] [address] END OF REPORT
--- NOTE | 2019-04-15 17:04 | NUR ---
ORDER RECEIVED TO REMOVE FEMORAL TRIALYSIS. HANDS WASHED AND GLOVES DONNED. DRESSING REMOVED NO SIGNS OF INFECTION. AREA PREPPED WITH BETADINE. SUTURES X4( 2 ON EACH SIDE) REMOVED. CATHETER REMOVED SUCCESSFULLY WITH TIP INTACT. NO SHEARING NOR INFECTION NOTED. PRESSURE HELD FOR 10 MINS. NO BLEEDING. PRESSURE DRESSING APPLIED WITH 4X4 AND TEGADERM .
--- NOTE | 2019-04-15 17:10 | NUR ---
TRIALYSIS CATHETER REMOVED PER ORDER BY MERARY VINSON. PRESSURE HELD FOR 10 MINUTES. DRESSING PLACED, CDI. HEMOSPLIT DRESSING CHANGED.
--- NOTE | 2019-04-15 18:55 | NUR ---
I have reviewed this patient and I concur with the Shift Assessment completed by the Licensed Practical Nurse today this shift.
--- NOTE | 2019-04-15 19:10 | NUR ---
EVENING ROUNDS COMPLETE. PT SITTING UP IN BED. FAMILY AT BEDSIDE. NO SIGNS OF DISTRESS. PT DENIES ANY PAIN AT THIS TIME. AAOX1 SELF ONLY. CL IN REACH, BED IN LOWEST POSITION.
[2019-04-15 20:30] VITALS: BP 155/71
[2019-04-16] VITALS (7 sets, daily range): BP systolic 164–186; BP diastolic 54–95
[2019-04-16 05:06] LABS: BASOPHILS 0.4 % (0-2); EOSINOPHILS 7.2 % (0-7); HEMATOCRIT 28.8 % (36.0-48.0); HEMOGLOBIN 9.7 g/dL (12-16); IMMATURE GRANULOCYTES 0.1 % (0-5); LYMPHOCYTES 16.6 % (15-50); MCH 29.7 pg (26.0-34.0); MCHC 33.7 g/dL (31.0-37.0); MCV 88.1 fL (80.0-100.0); MONOCYTES 10.6 % (2-11); NEUTROPHILS 65.1 % (40-80); PLATELET COUNT 195 10x3/uL (130-400); RBC 3.27 10x6/uL (4.00-5.40); RDW 13.6 % (11.5-14.5); WBC 7.8 10x3/uL (4.8-10.8)
[2019-04-16 05:17] LABS: INR 2.11 (0.85-1.17)
[2019-04-16 05:20] LABS: ANION GAP 12.1 mmol/L (8-16); CALCIUM 8.5 mg/dL (8.5-10.1); CARBON DIOXIDE 28.1 mmol/L (21.0-32.0); PHOSPHOROUS 3.7 mg/dL (2.5-4.9); POTASSIUM - SERUM 3.2 mmol/L (3.5-5.1)
--- NOTE | 2019-04-16 08:00 | NUR ---
PT SITTING UP IN BED. RR EVEN AND UNLABORED. ASSESMENT COMPLETE. DENIES NEEDS AT THIS TIME. FAMILY AT BEDSIDE. WILL CONTINUE TO MONITOR.
--- NOTE | 2019-04-16 15:58 | NUR ---
I have reviewed this patient and I concur with the Shift Assessment completed by the Licensed Practical Nurse today this shift.
--- NOTE | 2019-04-16 17:19 | NUR ---
REPORT GIVEN TO MERARY AMARO. PT AND FAMILY MADE AWARE.
--- NOTE | 2019-04-16 18:48 | NUR ---
IQBAL REMOVED. 400CC CLEAR LIGHT YELLOW URINE IN BAG.
--- NOTE | 2019-04-16 22:47 | NUR ---
PT CARE ASSUMED. RR EVEN AND UNLABORED ON 2L NC. NO S/S OF DISTRESS NOTED. PT DENIES NEEDS AT THIS TIME. BROTHER PRESENT AT BEDSIDE. WILL CTM.
[2019-04-17 03:50] VITALS: BP 172/81
[2019-04-17 06:09] LABS: BASOPHILS 0.3 % (0-2); EOSINOPHILS 6.9 % (0-7); HEMATOCRIT 29.6 % (36.0-48.0); HEMOGLOBIN 9.9 g/dL (12-16); IMMATURE GRANULOCYTES 0.3 % (0-5); LYMPHOCYTES 12.9 % (15-50); MCH 29.3 pg (26.0-34.0); MCHC 33.4 g/dL (31.0-37.0); MCV 87.6 fL (80.0-100.0); MEAN PLATELET VOLUME 10.2 fL (7.4-10.4); MONOCYTES 12.2 % (2-11); NEUTROPHILS 67.4 % (40-80); PLATELET COUNT 193 10x3/uL (130-400); RBC 3.38 10x6/uL (4.00-5.40); RDW 13.5 % (11.5-14.5)
[2019-04-17 06:37] LABS: ANION GAP 12.5 mmol/L (8-16); CALCIUM 8.5 mg/dL (8.5-10.1); CARBON DIOXIDE 28.7 mmol/L (21.0-32.0); CREATININE - SERUM 4.3 mg/dL (0.6-1.3); PHOSPHOROUS 3.8 mg/dL (2.5-4.9); POTASSIUM - SERUM 3.2 mmol/L (3.5-5.1)
[2019-04-17 06:39] LABS: INR 2.83 (0.85-1.17)
[2019-04-17 08:00] VITALS: BP 199/82
[2019-04-17 16:00] VITALS: BP 183/88
--- NOTE | 2019-04-17 19:36 | NUR ---
RECIEVED BEDSIDE SHIFT REPORT. RESTING IN BED WITH EYES CLOSED. LUNG SOUNDS CLEAR AND ABSX4. O2@ 2 LITERS PER N/C IN PLACE. HEMOSPLIT TO RIGHT UPPER CHEST. NO S/S OF DISTRESS OBSERVED. MOTHER AT BEDSIDE.
[2019-04-17 20:00] VITALS: BP 156/76
[2019-04-18 00:35] VITALS: BP 146/83
[2019-04-18 04:24] VITALS: BP 150/74
[2019-04-18 04:29] LABS: BASOPHILS 0.4 % (0-2); EOSINOPHILS 5.2 % (0-7); HEMATOCRIT 28.3 % (36.0-48.0); HEMOGLOBIN 9.4 g/dL (12-16); IMMATURE GRANULOCYTES 0.1 % (0-5); LYMPHOCYTES 19.9 % (15-50); MCH 29.1 pg (26.0-34.0); MCHC 33.2 g/dL (31.0-37.0); MCV 87.6 fL (80.0-100.0); MONOCYTES 11.2 % (2-11); NEUTROPHILS 63.2 % (40-80); PLATELET COUNT 178 10x3/uL (130-400); RBC 3.23 10x6/uL (4.00-5.40); RDW 13.6 % (11.5-14.5); WBC 7.3 10x3/uL (4.8-10.8)
[2019-04-18 04:43] LABS: INR 3.25 (0.85-1.17); PROTIME 32.3 SECONDS (11.6-15.0)
[2019-04-18 05:01] LABS: ALBUMIN 3.5 g/dL (3.4-5.0); ANION GAP 11.7 mmol/L (8-16); BILIRUBIN - TOTAL 0.46 mg/dL (0.2-1.3); CALCIUM 8.3 mg/dL (8.5-10.1); CARBON DIOXIDE 29.4 mmol/L (21.0-32.0); CREATININE - SERUM 4.4 mg/dL (0.6-1.3); PHOSPHOROUS 4.3 mg/dL (2.5-4.9); POTASSIUM - SERUM 3.1 mmol/L (3.5-5.1); PROTEIN - SERUM 6.2 g/dL (6.4-8.2)
--- NOTE | 2019-04-18 07:38 | NUR ---
PATIENT IS SITITNG UP IN BED. DENIES ANY NEEDS AT THIS TIME.
[2019-04-18 08:30] VITALS: BP 131/80
--- NOTE | 2019-04-18 11:46 | NUR ---
PATIENT IS IN DIALYSIS AT THIS TIME.
--- NOTE | 2019-04-18 13:14 | NUR ---
PATIENT IS BACK FROM DIALYSIS.
[2019-04-18 16:52] VITALS: BP 161/84
--- NOTE | 2019-04-18 17:16 | MORECARE ---
CASE MANAGEMENT DISCHARGE SUMMARY PATIENT: ANEESH FRYE UNIT: [id number] ADM DATE: 04/02/19 AGE: 58 : 56 SEX: F ROOM/BED: D.7316 AUTHOR: SHANA,DOC PHYSICIAN: REFERRING PHYSICIAN: PETRA SOMMERS MD DATE OF SERVICE: 04/18/19 Discharge Plan Patient Name: ANEESH FRYE Facility: [facility]:[place] : 1960 Planned Disposition: [facility] Facility Anticipated Discharge Date: Discharge Date: Expected LOS: Initial Reviewer: [id number] Initial Review Date: 04/06/2019 Generated: 04/18/19 6:16 pm Comments DCP- Discharge Planning Updated by [id number]: Hernesto Camacho on 04/18/19 4:[address] Patient Name: ANEESH FRYE Encounter No: [id number] : 1960 Primary Insurance: [employer] [facility] PFFS Anticipated DC Date: Planned Disposition: [facility] Facility External Planned Provider: [facility], MEDICARE REHAB BED DCP follow-up note: CM SPOKE TO KYLE OF [facility], SHE WILL MEET WITH PT TODAY AND [facility] ADMISSIONS TEAM IS REVIEWING REFERRAL FOR ADMISSION TO REHAB. CM INTRODUCED KYLE TO PT FOR PERSONAL ASSESMENT. CM WAITING ADMISSION DETERMINATION FROM [facility] IN [place]. IF [facility] WILL ACCEPT, PT WILL REQUIRE INSURANCE PRIOR AUTHORIZATION AND OUTPATIENT DIALYSIS UNIT ARRANGEMENT IN [place] WITH SCHEDULE ACCEPTABLE TO [facility] TO ACCOMODATE TRANPORATION NEEDS. Hernesto Camacho, SHAYY DIALLO DCP- Discharge Planning Updated by [id number]: Hernesto Camacho on 04/15/19 3:[address] Patient Name: ANEESH FRYE Encounter No: [id number] : 1960 Primary Insurance: [employer] [facility] PFFS Anticipated DC Date: Planned Disposition: [facility] Facility External Planned Provider: [facility], MEDICARE REHAB BED DCP follow-up note: CM ATTEMPTED TO MEET WITH PT AND FAMILY IN ROOM AT 0945 HOURS, NO ONE PRESENT. CM MET WITH PT AND FAMILY IN ROOM AT ABOUT 1300 HOURS, DISCUSSED THAT [facility] WILL NOT ACCEPT PT THEY ARE NOT ABLE TO MEET PT'S NEEDS. CM DISCUSSED AVAILABILITY OF OTHER PENITENTIARY REHABS, PROVIDED LISTING FROM MEDICARE WEBSITE OF ALL PENITENTIARY FACILITIES WITHIN [address] OF [facility]. PARENTS CHOSE [facility], [facility] AND [facility]. CHOICE SIGNED. CM CALLED KYLE AT [facility], , NOTIFIED OF REFERRAL. CM FAXED REFERRAL FOR REHAB TO [facility] AT [phone]. CM WAITING ADMISSION DETERMINATION FROM [facility] IN [place]. IF [facility]EPT, PT WILL REQUIRE INSURANCE PRIOR AUTHORIZATION AND OUTPATIENT DIALYSIS UNIT ARRANGEMENT IN [place] WITH SCHEDULE ACCEPTABLE TO [facility] TO ACCOMODATE TRANPORATION NEEDS. Hernesto Camacho, CASE MANAGEMENT DCP- Discharge Planning Updated by [id number]: Caitlin Raines on 04/13/19 2:[address] @ 1507, RECEIVED A CALL FROM YASSINE WITH [facility]. SHE STATED THEY WOULD NOT BE ABLE TO ACCEPT THE PATIENT BECAUSE THEY CANNOT MEET HER NEDS. I HAVE RELAYED THIS MESSAGE TO ABRAM, DISCHARGE CASEMANAGER. DCP- Discharge Planning Updated by [id number]: Hernesto Camacho on 04/13/19 7:[address] Patient Name: ANEESH FRYE Encounter No: [id number] : 1960 Primary Insurance: [employer] [facility] Anticipated DC Date: Planned Disposition: [facility] Facility External Planned Provider: [facility], MEDICARE REHAB BED DCP follow-up note: ON 04-12-19, [facility] INFORMED MERARY RAINES THAT [facility] DID NOT RECEIVE REHAB REFERRAL. MERARY RAINES PROVIDED REFERRAL INFORMATION TO [facility]. CM FAXED UPDATE TO [facility] ON 04-13-19. CM WAITING ADMISSION DETERMINATION FROM [facility] WELL INSURANCE DETERMINATION. IF ACCEPTED AT [facility], WILL NEED OUTPATIENT DIALYSIS ARRANGMENT THAT WILL SUIT THE NURSING FACILITY SCHEDULE. Hernesto Camacho, CASE MANAGEMENT DCP- Discharge Planning Updated by [id number]: Donya Barajas on 04/08/19 2:[address] Patient Name: ANEESH FRYE Admission Status: ER Accout number: [id number] Admission Date: 04-02-2019 : 1960 Admission Diagnosis:ACUTE KIDNEY FAILURE, UNSPECIFIED Attending: NEGRA SOMMERS Current LOS: 6 Anticipated DC Date: Planned Disposition: Primary Insurance: [employer] [facility] PFFS Discharge Planning Comments: ANGELLA SIGNED FOR [facility]. PATIENT STARTING DIALYSIS TODAY. SOO APPROVED AND SCANNED INTO [facility]. CM WILL FAX REFERRAL. Mathematics Lecturer: Donya Barajas DCP- Discharge Planning Updated by [id number]: Donya Barajas on 04/07/19 2:[address] Patient Name: ANEESH FRYE Admission Status: ER Accout number: [id number] Admission Date: 04-02-2019 : 1960 Admission Diagnosis:ACUTE KIDNEY FAILURE, UNSPECIFIED Attending: NEGRA SOMMERS Current LOS: 5 Anticipated DC Date: Planned Disposition: Primary Insurance: [employer] [facility] PFFS Discharge Planning Comments: CM MET WITH PATIENT'S FATHER SELINA FRYE, HE STATES HE IS HER GAURDIAN. STATES WOULD LIKE HER TO BE SEEN BY A PSYCH DOCTOR. I GAVE HIM A LIST OF SNF TO LOOK OVER, HE IS GETTING BACK WITH ME WITH HIS CHOICE. I FILLED OUT THE SOO TODAY AND FAXED IT. CM WILL FOLLOW. Mathematics Lecturer: Donya Barajas DCP- Discharge Planning Updated by [id number]: Donya Barajas on 04/06/19 1:[address] Patient Name: ANEESH FRYE Admission Status: ER Accout number: [id number] Admission Date: 04-02-2019 : 1960 Admission Diagnosis:ACUTE KIDNEY FAILURE, UNSPECIFIED Attending: NEGRA SOMMERS Current LOS: 4 Anticipated DC Date: Planned Disposition: Primary Insurance: [employer] [facility] PFFS Discharge Planning Comments: CM MET WITH PATIENT ABOUT DC PLANNING/NEEDS. HER SISTER HORACE STATED THEIR PARENTS ABRAM FRYE HAVE GAURDIANSHIP. STATES SISTER HAS MR AND SCHIZOPHRENIA AND LIVES IN A LONG TERM, SISTER IS CONCERNED PATIENT MAY NEED REHAB AFTER DISCHARGE. STATES WHEN PARENTS ARRIVE THEY WILL CONTACT CM. Mathematics Lecturer: Donya Barajas DCPIA - Discharge Planning Initial Assessment Updated by [id number]: Donya Barajas on 04/06/19 2:18 pm * Is the patient Alert and Oriented? No * Preadmission Environment Half-Way * List name and contact numbers for known caregivers / representatives who currently or will assist patient after discharge: SELINA AND CHELY FRYE, PARENTS, Coverage Notice Reviewer: [id number] - Hernesto Camacho Notice Issued Date-Time: 04/15/2019 13:05 Notice Type: Patient Choice Letter Notice Delivered To: Family Member Relationship to Patient: Father Angiography Nurse Name: SELINA FRYE Delivery Method: HAND - Hand Delivered Karmie Days: Prior Verbal Notification: Recipient Understood Notice: Yes Recipient Signature: Yes Med Rec Note Co-signed by Attending: Coverage Notice Comment: [facility] Last DP export: 04/15/19 3:56 p Patient Name: ANEESH FRYE Page 10866 at 1716 All edits/amendments must be made on the electronic document DICTATION DATE: 04/18/191715 CAKE WINDER: SAIMA 04/18/191715 RPT#: [id number] DC DATE: STATUS: ADM IN [facility] [address] [place] [address] END OF REPORT
--- NOTE | 2019-04-18 18:14 | NUR ---
OT NOTE: PT COMPLETED BUE AROM EXS. PT COMPLETED HAIR GROOMING WITH MIN A. PT COMPLETED ORAL CARE WITH SET UP. PT COMPLETED FACE WASH WITH SET UP. THANK YOU, GAIL GUERRA
--- NOTE | 2019-04-18 19:20 | NUR ---
PATIENT IS RESTING IN BED. DENIES ANY PAIN OR CONCERNS AT THIS TIME. BED IS IN THE LOWEST POSTION CALL LIGHT WITHIN REACH.
[2019-04-18 20:00] VITALS: BP 167/83
[2019-04-19] VITALS: BP 135/68
[2019-04-19 04:00] VITALS: BP 138/67
[2019-04-19 05:17] LABS: BASOPHILS 0.4 % (0-2); EOSINOPHILS 4.8 % (0-7); HEMATOCRIT 29.5 % (36.0-48.0); HEMOGLOBIN 9.8 g/dL (12-16); IMMATURE GRANULOCYTES 0.1 % (0-5); LYMPHOCYTES 20.2 % (15-50); MCH 29.3 pg (26.0-34.0); MCHC 33.2 g/dL (31.0-37.0); MCV 88.1 fL (80.0-100.0); MEAN PLATELET VOLUME 10.4 fL (7.4-10.4); MONOCYTES 11.7 % (2-11); NEUTROPHILS 62.8 % (40-80); PLATELET COUNT 175 10x3/uL (130-400); RBC 3.35 10x6/uL (4.00-5.40); RDW 13.8 % (11.5-14.5); WBC 6.7 10x3/uL (4.8-10.8)
[2019-04-19 05:30] LABS: ALBUMIN 3.7 g/dL (3.4-5.0); ANION GAP 12.5 mmol/L (8-16); BILIRUBIN - TOTAL 0.52 mg/dL (0.2-1.3); CALCIUM 8.1 mg/dL (8.5-10.1); CARBON DIOXIDE 30.1 mmol/L (21.0-32.0); PHOSPHOROUS 4.1 mg/dL (2.5-4.9); PROTEIN - SERUM 6.3 g/dL (6.4-8.2)
[2019-04-19 05:37] LABS: CREATININE - SERUM 3.2 mg/dL (0.6-1.3); POTASSIUM - SERUM 3.6 mmol/L (3.5-5.1)
--- NOTE | 2019-04-19 07:26 | NUR ---
REPORT RECEIVED. WILL CONTINUE WITH POC. PT CURRENTLY LYING SEMI FOWLERS. CALL LIGHT W/I REACH. PT IS RESTING AT THE MOMENT. RR EVEN AND UNLABORED ON 2L 02. NO PIV NOTED. NO S/S OF DISTRESS NOTED. PT DENIES ANY NEEDS. WILL CTM.
[2019-04-19 08:12] LABS: INR 2.67 (0.85-1.17); PROTIME 27.7 SECONDS (11.6-15.0)
[2019-04-19 08:45] VITALS: BP 171/69
--- NOTE | 2019-04-19 11:40 | NUR ---
PUREWICK APPLIED TO PATIENT AND SET TO SUCTION AFTER CLEANING PT FROM AN EPISODE OF URINARY INCONTINENCE. FAMILY AT BEDSIDE. PT DENIES ANY NEEDS. WILL CTM.
[2019-04-19 12:45] VITALS: BP 123/64
--- NOTE | 2019-04-19 13:37 | NUR ---
OT NOTE: PT PERFORMED VERY WELL TODAY. SUPINE TO SIT WITH MIN ASSIST; MIN ASSIST TO WASH FACE, HANDS, AND BRUSH HAIR; MAX ASSIST TO BRYANT SOCKS;SITTING BALANCE IS GOOD; PERFORMED SIT TO STAND WITH MIN/MOD ASSIST; AMB WITH OT AND PT WITH WALKER AND MIN ASSIST X 40 FT WITH 1 REST BREAK. PT DID NOT WANT TO SIT UP IN CHAIR. PERFORMED BED MOB BACK TO BED WITH MIN ASSIST. ROZ BOATENG OTR/L
--- NOTE | 2019-04-19 14:51 | NUR ---
Nutrition Follow-up: Spoke with pt's mother. She reports that pt is eating small amts. Likes bananas and vanilla wafers. Mother states that she may drink chocolate Ensure. Being followed by ST; they continue to rec mechanical soft with ground meats. Diet: Regular, Mech Soft with Ground Meats PO intake: 25-50% Wt: 181# (noted changes since admit; wt loss vs fluid?) Last BM: 04/18 per chart Labs noted: PO4 4.1, K+ 3.6 Meds noted: Coumadin, Bumex, KDur -Continue current diet as tolerated; monitor labs. -[place] food preferences within diet restrictions. -Continue to monitor wt. -RD following.
--- NOTE | 2019-04-19 15:11 | NUR ---
I have reviewed this patient and I concur with the Shift Assessment completed by the Licensed Practical Nurse today this shift.
[2019-04-19 16:46] VITALS: BP 171/69
--- NOTE | 2019-04-19 16:53 | MORECARE ---
CASE MANAGEMENT DISCHARGE SUMMARY PATIENT: ANEESH FRYE UNIT: [id number] ADM DATE: 04/02/19 AGE: 58 : 56 SEX: F ROOM/BED: D.7919 AUTHOR: SHANA,DOC PHYSICIAN: REFERRING PHYSICIAN: PETRA SOMMERS MD DATE OF SERVICE: 04/19/19 Discharge Plan Patient Name: ANEESH FRYE Facility: [facility]:[place] : 1960 Planned Disposition: Senior Care Facility Anticipated Discharge Date: Discharge Date: Expected LOS: Initial Reviewer: [id number] Initial Review Date: 04/06/2019 Generated: 04/19/19 5:52 pm Comments DCP- Discharge Planning Updated by [id number]: Hernesto Camacho on 04/19/19 3:[address] Patient Name: ANEESH FRYE Encounter No: [id number] : 1960 Primary Insurance: [employer] [facility] PFFS Anticipated DC Date: Planned Disposition: Senior Care Facility External Planned Provider:[facility], MEDICARE REHAB BED DCP follow-up note: CM SPOKE TO KYLE OF [facility], THEY HAVE SENT INFORMATION TO INSURANCE FOR AUTHORIZATION AND PT WILL NEED TO HAVE NOTES INDICATING SHE CAN SIT UP FOR DURATION OF DIALYSIS IN CHAIR. CM FAXED UPDATE TO [facility] AT [phone]. CM WAITING ADMISSION DETERMINATION FROM [facility] IN [place]. IF [facility] WILL ACCEPT, PT WILL REQUIRE INSURANCE PRIOR AUTHORIZATION AND OUTPATIENT DIALYSIS UNIT ARRANGEMENT IN [place] WITH SCHEDULE ACCEPTABLE TO HALFWAY TO ACCOMODATE TRANPORATION NEEDS. Hernesto Camacho, CASE MANAGEMENT DCP- Discharge Planning Updated by [id number]: Hernesto Camacho on 04/18/19 4:[address] Patient Name: ANEESH FRYE Encounter No: [id number] : 1960 Primary Insurance: [employer] [facility] PFFS Anticipated DC Date: Planned Disposition: Senior Care Facility External Planned Provider: [facility], MEDICARE REHAB BED DCP follow-up note: CM SPOKE TO KYLE OF [facility], SHE WILL MEET WITH PT TODAY AND [facility] ADMISSIONS TEAM IS REVIEWING REFERRAL FOR ADMISSION TO REHAB. CM INTRODUCED KYLE TO PT FOR PERSONAL ASSESMENT. CM WAITING ADMISSION DETERMINATION FROM [facility] [place]. IF [facility] WILL ACCEPT, PT WILL REQUIRE INSURANCE PRIOR AUTHORIZATION AND OUTPATIENT DIALYSIS UNIT ARRANGEMENT IN [place] WITH SCHEDULE ACCEPTABLE TO HALFWAY TO ACCOMODATE TRANPORATION NEEDS. Hernesto Camacho, CASE MANAGEMENT DCP- Discharge Planning Updated by [id number]: Hernesto Camacho on 04/15/19 3:[address] Patient Name: ANEESH FRYE Encounter No: [id number] : 1960 Primary Insurance: [employer] [facility] PFFS Anticipated DC Date: Planned Disposition: Senior Care Facility External Planned Provider: [facility], MEDICARE REHAB BED DCP follow-up note: CM ATTEMPTED TO MEET WITH PT AND FAMILY IN ROOM AT 0945 HOURS, NO ONE PRESENT. CM MET WITH PT AND FAMILY IN ROOM AT ABOUT 1300 HOURS, DISCUSSED THAT [facility] WILL NOT ACCEPT PT THEY ARE NOT ABLE TO MEET PT'S NEEDS. CM DISCUSSED AVAILABILITY OF OTHER INTERMEDIATE REHABS, PROVIDED LISTING FROM MEDICARE WEBSITE OF ALL INTERMEDIATE FACILITIES WITHIN [address] OF [facility]. PARENTS CHOSE [facility], [facility] AND [facility]. CHOICE SIGNED. CM CALLED KYLE AT [facility], , NOTIFIED OF REFERRAL. CM FAXED REFERRAL FOR REHAB TO [facility] AT [phone]. CM WAITING ADMISSION DETERMINATION FROM [facility] [place]. IF HALFW[facility] WILL ACCEPT, PT WILL REQUIRE INSURANCE PRIOR AUTHORIZATION AND OUTPATIENT DIALYSIS UNIT ARRANGEMENT IN [place] WITH SCHEDULE ACCEPTABLE TO HALFWAY TO ACCOMODATE TRANPORATION NEEDS. Hernesto Camacho, CASE MANAGEMENT DCP- Discharge Planning Updated by [id number]: Caitlin Raines on 04/13/19 2:[address] @ 1507, RECEIVED A CALL FROM YASSINE WITH [facility]. SHE STATED THEY WOULD NOT BE ABLE TO ACCEPT THE PATIENT BECAUSE THEY CANNOT MEET HER NEDS. I HAVE RELAYED THIS MESSAGE TO ABRAM, TRE CASEMANAGER. DCP- Discharge Planning Updated by [id number]: Hernesto Camacho on 04/13/19 7:[address] Patient Name: ANEESH FRYE Encounter No: [id number] : 1960 Primary Insurance: [employer]PD [facility] PFFS Anticipated DC Date: Planned Disposition: Senior Care Facility External Planned Provider: [facility], MEDICARE REHAB BED DCP follow-up note: ON 04-12-19, [facility] INFORMED MERARY RAINES THAT [facility] DID NOT RECEIVE REHAB REFERRAL. RN ZHAO RAINES PROVIDED REFERRAL INFORMATION TO [facility]. CM FAXED UPDATE TO [facility] ON 04-13-19. CM WAITING ADMISSION DETERMINATION FROM [facility] WELL INSURANCE DETERMINATION. IF ACCEPTED AT [facility], WILL NEED OUTPATIENT DIALYSIS ARRANGMENT THAT WILL SUIT THE NURSING FACILITY SCHEDULE. Hernesto Camacho, CASE MANAGEMENT DCP- Discharge Planning Updated by [id number]: Donya Barajas on 04/08/19 2:[address] Patient Name: ANEESH FRYE Admission Status: ER Accout number: [id number] Admission Date: 04-02-2019 : 1960 Admission Diagnosis:ACUTE KIDNEY FAILURE, UNSPECIFIED Attending: NEGRA SOMMERS Current LOS: 6 Anticipated DC Date: Planned Disposition: Primary Insurance: [employer]PD [facility] PFFS Discharge Planning Comments: ANGELLA SIGNED FOR [facility]. PATIENT STARTING DIALYSIS TODAY. SOO APPROVED AND SCANNED INTO [employer]. CM WILL FAX REFERRAL. Digital Composer: Donya Barajas DCP- Discharge Planning Updated by [id number]: Donya Barajas on 04/07/19 2:[address] Patient Name: ANEESH FRYE Admission Status: ER Accout number: [id number] Admission Date: 04-02-2019 : 1960 Admission Diagnosis:ACUTE KIDNEY FAILURE, UNSPECIFIED Attending: NEGRA SOMMERS Current LOS: 5 Anticipated DC Date: Planned Disposition: Primary Insurance: [employer]PD [facility] PFFS Discharge Planning Comments: CM MET WITH PATIENT'S FATHER SELINA FRYE, HE STATES HE IS HER GAURDIAN. STATES WOULD LIKE HER TO BE SEEN BY A PSYCH DOCTOR. I GAVE HIM A LIST OF SNF TO LOOK OVER, HE IS GETTING BACK WITH ME WITH HIS CHOICE. I FILLED OUT THE SOO TODAY AND FAXED IT. CM WILL FOLLOW. Digital Composer: Donya Barajas DCP- Discharge Planning Updated by [id number]: Donya Barajas on 04/06/19 1:[address] Patient Name: ANEESH FRYE Admission Status: ER Accout number: [id number] Admission Date: 04-02-2019 : 1960 Admission Diagnosis:ACUTE KIDNEY FAILURE, UNSPECIFIED Attending: NEGRA SOMMERS Current LOS: 4 Anticipated DC Date: Planned Disposition: Primary Insurance: [facility] Discharge Planning Comments: CM MET WITH PATIENT ABOUT DC PLANNING/NEEDS. HER SISTER HORACE STATED THEIR PARENTS ABRAM FRYE HAVE GAURDIANSHIP. STATES SISTER HAS MR AND SCHIZOPHRENIA AND LIVES IN A PEN[place]ENTIARY, SISTER IS CONCERNED PATIENT MAY NEED REHAB AFTER DISCHARGE. STATES WHEN PARENTS ARRIVE THEY WILL CONTACT CM. Digital Composer: Donya Barajas DCPIA - Discharge Planning Initial Assessment Updated by [id number]: Donya Barajas on 04/06/19 2:18 pm * Is the patient Alert and Oriented? No * Preadmission Environment Retirement * List name and contact numbers for known caregivers / representatives who currently or will assist patient after discharge: ABRAM FRYE, PARENTS, Coverage Notice Reviewer: [id number] Jesus Camacho Notice Issued Date-Time: 04/15/2019 13:05 Notice Type: Patient Choice Letter Notice Delivered To: Family Member Relationship to Patient: Father Candy Separator Hard Name: SELINA FRYE Delivery Method: HAND - Hand Delivered Karime Days: Prior Verbal Notification: Recipient Understood Notice: Yes Recipient Signature: Yes Med Rec Note Co-signed by Attending: Coverage Notice Comment: [facility] Last DP export: 04/18/19 4:16 p Patient Name: ANEESH FRYE Page [id number] at 1653 All edits/amendments must be made on the electronic document DICTATION DATE: 04/19/191651 INSULATION PROFESSIONAL: SAIMA 04/19/191651 RPT#: [id number] DC DATE: STATUS: ADM IN [facility] [address] [facility] [place] [address] END OF REPORT
--- NOTE | 2019-04-19 17:10 | NUR ---
OT NOTE: PT EXHIBITED GREAT IMPROVEMENT WITH FUNCTIONAL PERFORMANCE. PT COMPLETED BED TO CHAIR TRANSFERS WITH CGA/MIN A. PT COMPLETED BED MOB TASKS WITH CGA/MIN A. PT COMPLETED SIT TO STANDS WITH CGA. PT COMPLETED GROOMING TASKS WITH SET UP IN CHAIR. THANK YOU, GAIL GUERRA
--- NOTE | 2019-04-19 17:18 | NUR ---
PT LYING SEMI FOWLERS. CALL LIGHT W/I REACH. FAMILY ASSISTING WITH DINNER. RR EVEN AND UNLABORED ON 2L. PUREWICK IN PLACE. PT DENIES ANY NEEDS. WILL CTM.
[2019-04-19 20:00] VITALS: BP 143/64
--- NOTE | 2019-04-19 20:27 | NUR ---
RECIEVED BEDSIDE REPORT. UP IN BED AND TEARFUL. LOOKING FOR HER MOTHER. ALERT AND ORIENTEED X4. EXTERNAL CATH INPLACE. RIGHT CHEST HEMOSPLIT. DSG CLEAN DRY AND INTACT. TELEMETRY IN PLACE. DENIES ANY OTHER NEEDS. WILL CONT. POC.
[2019-04-20] VITALS: BP 148/74
[2019-04-20 04:00] VITALS: BP 136/63
[2019-04-20 05:17] LABS: ALBUMIN 3.7 g/dL (3.4-5.0); ANION GAP 14.3 mmol/L (8-16); BILIRUBIN - TOTAL 0.47 mg/dL (0.2-1.3); CALCIUM 8.6 mg/dL (8.5-10.1); CARBON DIOXIDE 28.3 mmol/L (21.0-32.0); CREATININE - SERUM 3.4 mg/dL (0.6-1.3); POTASSIUM - SERUM 3.6 mmol/L (3.5-5.1); PROTEIN - SERUM 6.6 g/dL (6.4-8.2)
[2019-04-20 05:37] LABS: INR 2.93 (0.85-1.17); PROTIME 29.8 SECONDS (11.6-15.0)
--- NOTE | 2019-04-20 07:02 | NUR ---
REPORT RECEIVED. SHE IS ASLEEP WITH RESP EVEN WITHOUT LABOR. BED IN LOWEST POSITION AND LOCKED. CAREPLAN REVIEW DONE WITH SAFETY PRECAUTIONS IN PLACE. SCD'S ARE ON. CL IN REACH
[2019-04-20 08:00] VITALS: BP 150/66
[2019-04-20 12:00] VITALS: BP 146/68
--- NOTE | 2019-04-20 12:23 | MORECARE ---
CASE MANAGEMENT DISCHARGE SUMMARY PATIENT: ANEESH FRYE UNIT: [id number] ADM DATE: 04/02/19 AGE: 58 : 56 SEX: F ROOM/BED: D.3231 AUTHOR: SHANA,DOC PHYSICIAN: REFERRING PHYSICIAN: PETRA SOMMERS MD DATE OF SERVICE: 04/20/19 Discharge Plan Patient Name: ANEESH FRYE Facility: [facility]:[place] : 1960 Planned Disposition: Detention Facility Anticipated Discharge Date: 04/20/19 Discharge Date: Expected LOS: 18 Initial Reviewer: [id number] Initial Review Date: 04/06/2019 Generated: 04/20/19 1:23 pm Comments DCP- Discharge Planning Updated by [id number]: Hernesto Camacho on 04/19/19 3:[address] Patient Name: ANEESH FRYE Encounter No: [id number] : 1960 Primary Insurance: [employer] [facility] PFFS Anticipated DC Date: Planned Disposition: Detention Facility External Planned Provider:[facility], MEDICARE REHAB BED DCP follow-up note: CM SPOKE TO KYLE [facility], THEY HAVE SENT INFORMATION TO INSURANCE FOR AUTHORIZATION AND PT WILL NEED TO HAVE NOTES INDICATING SHE CAN SIT UP FOR DURATION OF DIALYSIS IN CHAIR. CM FAXED UPDATE TO [facility] AT [phone]. CM WAITING ADMISSION DETERMINATION FROM [facility] IN [place]. IF PRISON WILL ACCEPT, PT WILL REQUIRE INSURANCE PRIOR AUTHORIZATION AND OUTPATIENT DIALYSIS UNIT ARRANGEMENT IN [place] WITH SCHEDULE ACCEPTABLE TO PRISON TO ACCOMODATE TRANPORATION NEEDS. Hernesto Camacho, CASE MANAGEMENT DCP- Discharge Planning Updated by [id number]: Hernesto Camacho on 04/18/19 4:[address] Patient Name: ANEESH FRYE Encounter No: [id number] : 1960 Primary Insurance: [employer] [facility] PFFS Anticipated DC Date: Planned Disposition: Detention Facility External Planned Provider: [facility], MEDICARE REHAB BED DCP follow-up note: CM SPOKE TO KYLE [facility], SHE WILL MEET WITH PT TODAY AND [facility] ADMISSIONS TEAM IS REVIEWING REFERRAL FOR ADMISSION TO REHAB. CM INTRODUCED KYLE TO PT FOR PERSONAL ASSESMENT. CM WAITING ADMISSION DETERMINATION FROM [facility] IN [place]. IF PRISON WILL ACCEPT, PT WILL REQUIRE INSURANCE PRIOR AUTHORIZATION AND OUTPATIENT DIALYSIS UNIT ARRANGEMENT IN [place] WITH SCHEDULE ACCEPTABLE TO PRISON TO ACCOMODATE TRANPORATION NEEDS. Hernesto Camacho, CASE MANAGEMENT DCP- Discharge Planning Updated by [id number]: Hernesto Camacho on 04/15/19 3:[address] Patient Name: ANEESH FRYE Encounter No: [id number] : 1960 Primary Insurance: [employer] [facility] PFFS Anticipated DC Date: Planned Disposition: Detention Facility External Planned Provider: [facility], MEDICARE REHAB BED DCP follow-up note: CM ATTEMPTED TO MEET WITH PT AND FAMILY IN ROOM AT 0945 HOURS, NO ONE PRESENT. CM MET WITH PT AND FAMILY IN ROOM AT ABOUT 1300 HOURS, DISCUSSED THAT [facility] WILL NOT ACCEPT PT THEY ARE NOT ABLE TO MEET PT'S NEEDS. CM DISCUSSED AVAILABILITY OF OTHER LONG-TERM REHABS, PROVIDED LISTING FROM MEDICARE WEBSITE OF ALL LONG-TERM FACILITIES WITHIN [address] OF [facility]. PARENTS CHOSE [facility], [facility] AND [facility]. CHOICE SIGNED. CM CALLED KYLE AT [facility], , NOTIFIED OF REFERRAL. CM FAXED REFERRAL FOR REHAB TO [facility] AT [phone]. CM WAITING ADMISSION DETERMINATION FROM [facility] IN [place]. IF PRISON WILL ACCEPT, PT WILL REQUIRE INSURANCE PRIOR AUTHORIZATION AND OUTPATIENT DIALYSIS UNIT ARRANGEMENT IN [place] WITH SCHEDULE ACCEPTABLE TO PRISON TO ACCOMODATE TRANPORATION NEEDS. Hernesto Camacho, CASE MANAGEMENT DCP- Discharge Planning Updated by [email or web address]: Caitlin Raines on 04/13/19 2:[address] @ 1507, RECEIVED A CALL FROM YASSINE WITH [facility]. SHE STATED THEY WOULD NOT BE ABLE TO ACCEPT THE PATIENT BECAUSE THEY CANNOT MEET HER NEDS. I HAVE RELAYED THIS MESSAGE TO ABRAM, TRE CASEMANAGER. DCP- Discharge Planning Updated by [id number]: Hernesto Camacho on 04/13/19 7:[address] Patient Name: ANEESH FRYE Encounter No: [id number] : 1960 Primary Insurance: [employer] [facility] PFFS Anticipated DC Date: Planned Disposition: Detention Facility External Planned Provider: [facility], MEDICARE REHAB BED DCP follow-up note: ON 04-12-19, [facility] INFORMED MERARY RAINES THAT [facility] DID NOT RECEIVE REHAB REFERRAL. MERARY RAINES PROVIDED REFERRAL INFORMATION TO [facility]. CM FAXED UPDATE TO [facility] ON 04-13-19. CM WAITING ADMISSION DETERMINATION FROM [facility] WELL INSURANCE DETERMINATION. IF ACCEPTED AT [facility], WILL NEED OUTPATIENT DIALYSIS ARRANGMENT THAT WILL SUIT THE NURSING FACILITY SCHEDULE. Hernesto Camacho, CASE MANAGEMENT DCP- Discharge Planning Updated by [id number]: Donya Barajas on 04/08/19 2:[address] Patient Name: ANEESH FRYE Admission Status: ER Accout number: [id number] Admission Date: 04-02-2019 : 1960 Admission Diagnosis:ACUTE KIDNEY FAILURE, UNSPECIFIED Attending: NEGRA SOMMERS Current LOS: 6 Anticipated DC Date: Planned Disposition: Primary Insurance: [employer] [facility] PFFS Discharge Planning Comments: ANGELLA SIGNED FOR [facility]. PATIENT STARTING DIALYSIS TODAY. SOO APPROVED AND SCANNED INTO [employer]. CM WILL FAX REFERRAL. Navigation Officer: Donya Barajas DCP- Discharge Planning Updated by [id number]: Donya Barajas on 04/07/19 2:[address] Patient Name: ANEESH FRYE Admission Status: ER Accout number: [id number] Admission Date: 04-02-2019 : 1960 Admission Diagnosis:ACUTE KIDNEY FAILURE, UNSPECIFIED Attending: NEGRA SOMMERS Current LOS: 5 Anticipated DC Date: Planned Disposition: Primary Insurance: [employer] [facility] PFFS Discharge Planning Comments: CM MET WITH PATIENT'S FATHER SELINA FRYE, HE STATES HE IS HER GAURDIAN. STATES WOULD LIKE HER TO BE SEEN BY A PSYCH DOCTOR. I GAVE HIM A LIST OF SNF TO LOOK OVER, HE IS GETTING BACK WITH ME WITH HIS CHOICE. I FILLED OUT THE SOO TODAY AND FAXED IT. CM WILL FOLLOW. Navigation Officer: Donya Barajas DCP- Discharge Planning Updated by [id number]: Donya Barajas on 04/06/19 1:[address] Patient Name: ANEESH FRYE Admission Status: ER Accout number: [id number] Admission Date: 04-02-2019 : 1960 Admission Diagnosis:ACUTE KIDNEY FAILURE, UNSPECIFIED Attending: NEGRA SOMMERS Current LOS: 4 Anticipated DC Date: Planned Disposition: Primary Insurance: [employer] [facility] PF Discharge Planning Comments: CM MET WITH PATIENT ABOUT DC PLANNING/NEEDS. HER SISTER HORACE STATED THEIR PARENTS ABRAM FRYE HAVE GAURDIANSHIP. STATES SISTER HAS MR AND SCHIZOPHRENIA AND LIVES IN A [place], SISTER IS CONCERNED PATIENT MAY NEED REHAB AFTER DISCHARGE. STATES WHEN PARENTS ARRIVE THEY WILL CONTACT CM. Navigation Officer: Donya Barajas DCPIA - Discharge Planning Initial Assessment Updated by [id number]: Donya Barajas on 04/06/19 2:18 pm * Is the patient Alert and Oriented? No * Preadmission Environment Penitentiary * List name and contact numbers for known caregivers / representatives who currently or will assist patient after discharge: ABRAM FRYE, PARENTS, Coverage Notice Reviewer: [id number] Jesus Camacho Notice Issued Date-Time: 04/15/2019 13:05 Notice Type: Patient Choice Letter Notice Delivered To: Family Member Relationship to Patient: Father Automated Manufacturing Instructor Name: SELINA FRYE Delivery Method: HAND - Hand Delivered Karime Days: Prior Verbal Notification: Recipient Understood Notice: Yes Recipient Signature: Yes Med Rec Note Co-signed by Attending: Coverage Notice Comment: [facility] Last DP export: 04/19/19 3:53 p Patient Name: ANEESH FRYE Page 52007 at 1223 All edits/amendments must be made on the electronic document DICTATION DATE: 04/20/19 1223 PROGRAM SCHEDULE CLERK: SAIMA 04/20/19 1223 RPT#: [id number] DC DATE: STATUS: ADM IN [facility] [address] [place] [address] END OF REPORT
--- NOTE | 2019-04-20 12:29 | NUR ---
O2 OFF FOR 30 MINUTES O2 SAT IS 95%. SHE IS FEEDING SELF LUNCH WITH FAMILY AT BEDSIDE. RESP EVEN WITHOUT LABOR. DENIES ANY CURRENT NEEDS. CONTINUE CURRENT PLAN OF CARE.
--- NOTE | 2019-04-20 12:37 | MORECARE ---
CASE MANAGEMENT DISCHARGE SUMMARY PATIENT: ANEESH FRYE UNIT: [id number] ADM DATE: 04/02/19 AGE: 58 : 56 SEX: F ROOM/BED: D.5410 AUTHOR: SHANA,DOC PHYSICIAN: REFERRING PHYSICIAN: PETRA SOMMERS MD DATE OF SERVICE: 04/20/19 Discharge Plan Patient Name: ANEESH FRYE Facility: [facility]:[place] : 1960 Planned Disposition: Fpc Facility Anticipated Discharge Date: 04/20/19 Discharge Date: Expected LOS: 18 Initial Reviewer: [id number] Initial Review Date: 04/06/2019 Generated: 04/20/19 1:37 pm Comments DCP- Discharge Planning Updated by [id number]: Hernesto Camacho on 04/20/19 11:[address] Patient Name: ANEESH FRYE Admission Status: ER Accout number: [id number] Admission Date: 04-02-2019 : 1960 Admission Diagnosis:ACUTE KIDNEY FAILURE, UNSPECIFIED Attending: NEGRA SOMMERS Current LOS: 18 Anticipated DC Date: 04-20-2019 Planned Disposition: Fpc Facility Primary Insurance: [facility] PLANNED EXTERNAL PROVIDER: [facility], MEDICARE REHAB BED Discharge Planning Comments: CM RECEIVED CALL FROM K[facility] OR [facility], , [facility] WILL ACCEPT PT TODAY IF FAMILY CAN TRANSPORT. KYLE REPORTS THEY WILL NOT TRANSPORT TO [place] AND NEED [place] [facility]. CM NOTIFIED ABIGAIL OF [facility] OF NEED OF DIALYSIS UNIT IN [place]. CM SPOKE TO PT'S FATHER AND MOTHER IN ROOM, THEY ARE IN AGREEMENT WITH DISCHARGE PLAN TODAY, PT'S FATHER CAN DRIVE PT TO THE FACILITY. CM NOTIFIED BEDSIDE NURSE WHO WILL WEAN OXYGEN, PT'S FATHER REPORTS PT IS NOT ON OXYGEN AT HOME. FAMILY CONCERNED THAT PT IS INCONTINENT OF URINE AND WANTED CM TO ENSURE [facility] KNOWS. CM RECEIVED CALL FROM KYLE OF [facility] WHO ADVISED THAT [facility] [facility] WILL ACCEPT PT FOR THURSDAY, THURSDAY AND THURSDAY, THEY JUST NEED THE DIALYSIS TIME. ZHAO ADVISED OF PT FAMILY CONCERNS. KYLE REPORTS THEY ALREADY KNEW FROM ADMISSION ASSESSMENT AND WILL WORK WITH INCONTINENCE. BEDSIDE NURSE ADVISED THAT DIALYSIS WILL BE COMPLETED BETWEEN 1500 AND 1530PM TODAY. CM NOTIFIED KYLE OF [facility] WHO INFORMED CM THAT THEY WILL ACCEPT PT AFTER DIALYSIS TODAY WITH FAMILY TRANSPORT. CM WAITING ON DIALYSIS UNIT ACCEPTANCE IN [place] AND WELCOME LETTER. [facility] WILL ACCEPT PT TODAY AFTER DIALYSIS. BEDSIDE NURSE NOTIFIED CM THAT PT IS 95% ON ROOM AIR AND DOES NOT REQUIRE OXYGEN FOR TRANSPORT. Staff Certified Nurse Midwife: Hernesto Camacho DCP- Discharge Planning Updated by [id number]: Hernesto Camacho on 04/19/19 3:[address] Patient Name: ANEESH FRYE Encounter No: [id number] : 1960 Primary Insurance: [employer] [facility] PF Anticipated DC Date: Planned Disposition: Fpc Facility External Planned Provider:[facility], MEDICARE REHAB BED DCP follow-up note: CM SPOKE TO KYLE [facility], THEY HAVE SENT INFORMATION TO INSURANCE FOR AUTHORIZATION AND PT WILL NEED TO HAVE NOTES INDICATING SHE CAN SIT UP FOR DURATION OF DIALYSIS IN [place]. CM FAXED UPDATE TO [facility] AT [phone]. CM WAITING ADMISSION DETERMINATION FROM [facility] IN [place]. IF [facility] WILL ACCEPT, PT WILL REQUIRE INSURANCE PRIOR AUTHORIZATION AND OUTPATIENT DIALYSIS UNIT ARRANGEMENT IN [place] WITH SCHEDULE ACCEPTABLE TO [facility] TO ACCOMODATE TRANPORATION NEEDS. SHAYY De Leon DCP- Discharge Planning Updated by [id number]: Hernesto Camacho on 04/18/19 4:[address] Patient Name: ANEESH FRYE Encounter No: [id number] : 1960 Primary Insurance: [employer] [facility] PF Anticipated DC Date: Planned Disposition: Fpc Facility External Planned Provider: [facility], MEDICARE REHAB BED DCP follow-up note: CM SPOKE TO KYLE [facility], SHE WILL MEET WITH PT TODAY AND [facility] ADMISSIONS TEAM IS REVIEWING REFERRAL FOR ADMISSION TO REHAB. CM INTRODUCED KYLE TO PT FOR PERSONAL ASSESMENT. CM WAITING ADMISSION DETERMINATION FROM [facility] IN [place]. IF [facility] WILL ACCEPT, PT WILL REQUIRE INSURANCE PRIOR AUTHORIZATION AND OUTPATIENT DIALYSIS UNIT ARRANGEMENT IN [place] WITH SCHEDULE ACCEPTABLE TO [facility] TO ACCOMODATE TRANPORATION NEEDS. SHAYY De Leon DCP- Discharge Planning Updated by [id number]: Hernesto Camacho on 04/15/19 3:[address] Patient Name: ANEESH FRYE Encounter No: [id number] : 1960 Primary Insurance: [employer] [facility] PFFS Anticipated DC Date: Planned Disposition: Fpc Facility External Planned Provider: [facility], MEDICARE REHAB BED DCP follow-up note: CM ATTEMPTED TO MEET WITH PT AND FAMILY IN ROOM AT 0945 HOURS, NO ONE PRESENT. CM MET WITH PT AND FAMILY IN ROOM AT ABOUT 1300 HOURS, DISCUSSED THAT [facility] WILL NOT ACCEPT PT THEY ARE NOT ABLE TO MEET PT'S NEEDS. CM DISCUSSED AVAILABILITY OF OTHER SENIOR CARE REHABS, PROVIDED LISTING FROM MEDICARE WEBSITE OF ALL SENIOR CARE FACILITIES WITHIN [address] OF [facility]. PARENTS CHOSE [facility], [facility] AND [facility]. CHOICE SIGNED. CM CALLED KYLE AT [facility], , NOTIFIED OF REFERRAL. CM FAXED REFERRAL FOR REHAB TO [facility] AT [phone]. CM WAITING ADMISSION DETERMINATION FROM [facility] IN [place]. IF [facility] WILL ACCEPT, PT WILL REQUIRE INSURANCE PRIOR AUTHORIZATION AND OUTPATIENT DIALYSIS UNIT ARRANGEMENT IN [place] WITH SCHEDULE ACCEPTABLE TO [facility] TO ACCOMODATE TRANPORATION NEEDS. Hernesto Camacho, CASE MANAGEMENT DCP- Discharge Planning Updated by [id number]: Caitlin Raines on 04/13/19 2:[address] @ 1507, RECEIVED A CALL FROM YASSINE WITH [facility]. SHE STATED THEY WOULD NOT BE ABLE TO ACCEPT THE PATIENT BECAUSE THEY CANNOT MEET HER NEDS. I HAVE RELAYED THIS MESSAGE TO ABRAM, DISCHARGE CASEMANAGER. DCP- Discharge Planning Updated by [id number]: Hernesto Camacho on 04/13/19 7:[address] Patient Name: ANEESH FRYE Encounter No: [id number] : 1960 Primary Insurance: [employer] [facility] PF Anticipated DC Date: Planned Disposition: Fpc Facility External Planned Provider: [facility], MEDICARE REHAB BED DCP follow-up note: ON 04-12-19, [facility] INFORMED MERARY RAINES THAT [facility] DID NOT RECEIVE REHAB REFERRAL. MERARY RAINES PROVIDED REFERRAL INFORMATION TO [facility]. CM FAXED UPDATE TO [employer] [facility] ON 04-13-19. CM WAITING ADMISSION DETERMINATION FROM [facility] WELL INSURANCE DETERMINATION. IF ACCEPTED AT [facility], WILL NEED OUTPATIENT DIALYSIS ARRANGMENT THAT WILL SUIT THE NURSING FACILITY SCHEDULE. Hernesto Camacho, CASE MANAGEMENT DCP- Discharge Planning Updated by [id number]: Donya Jenn on 04/08/19 2:[address] Patient Name: ANEESH FRYE Admission Status: ER Accout number: [id number] Admission Date: 04-02-2019 : 1960 Admission Diagnosis:ACUTE KIDNEY FAILURE, UNSPECIFIED Attending: NEGRA SOMMERS Current LOS: 6 Anticipated DC Date: Planned Disposition: Primary Insurance: [employer] [facility] PFFS Discharge Planning Comments: ANGELLA SIGNED FOR [facility]. PATIENT STARTING DIALYSIS TODAY. SOO APPROVED AND SCANNED INTO [facility]. CM WILL FAX REFERRAL. Staff Certified Nurse Midwife: Donya Barajas DCP- Discharge Planning Updated by [id number]: Donya Barajas on 04/07/19 2:[address] Patient Name: ANEESH FRYE Admission Status: ER Accout number: [id number] Admission Date: 04-02-2019 : 1960 Admission Diagnosis:ACUTE KIDNEY FAILURE, UNSPECIFIED Attending: NEGRA SOMMERS Current LOS: 5 Anticipated DC Date: Planned Disposition: Primary Insurance: [employer] [facility] PFFS Discharge Planning Comments: CM MET WITH PATIENT'S FATHER SELINA FRYE, HE STATES HE IS HER GAURDIAN. STATES WOULD LIKE HER TO BE SEEN BY A PSYCH DOCTOR. I GAVE HIM A LIST OF SNF TO LOOK OVER, HE IS GETTING BACK WITH ME WITH HIS CHOICE. I FILLED OUT THE SOO TODAY AND FAXED IT. CM WILL FOLLOW. Staff Certified Nurse Midwife: Donya Barajas DCP- Discharge Planning Updated by [id number]: Donya Barajas on 04/06/19 1:[address] Patient Name: ANEESH FRYE Admission Status: ER Accout number: [id number] Admission Date: 04-02-2019 : 1960 Admission Diagnosis:ACUTE KIDNEY FAILURE, UNSPECIFIED Attending: NEGRA SOMMERS Current LOS: 4 Anticipated DC Date: Planned Disposition: Primary Insurance: [employer] [facility] PFFS Discharge Planning Comments: CM MET WITH PATIENT ABOUT DC PLANNING/NEEDS. HER SISTER HORACE STATED THEIR PARENTS ABRAM FRYE HAVE GAURDIANSHIP. STATES SISTER HAS MR AND SCHIZOPHRENIA AND LIVES IN A NURSING HOME, SISTER IS CONCERNED PATIENT MAY NEED REHAB AFTER DISCHARGE. STATES WHEN PARENTS ARRIVE THEY WILL CONTACT CM. Staff Certified Nurse Midwife: Donya Barajas DCPIA - Discharge Planning Initial Assessment Updated by [id number]: Donya Barajas on 04/06/19 2:18 pm * Is the patient Alert and Oriented? No * Preadmission Environment Shelter * List name and contact numbers for known caregivers / representatives who currently or will assist patient after discharge: ABRAM FRYE, PARENTS, Coverage Notice Reviewer: [id number] Jesus Camacho Notice Issued Date-Time: 04/15/2019 13:05 Notice Type: Patient Choice Letter Notice Delivered To: Family Member Relationship to Patient: Father Molded Grid And Parts Inspector Name: SELINA FRYE Delivery Method: HAND - Hand Delivered Karime Days: Prior Verbal Notification: Recipient Understood Notice: Yes Recipient Signature: Yes Med Rec Note Co-signed by Attending: Coverage Notice Comment: [facility] Last DP export: 04/20/19 11:23 a Patient Name: ANEESH FRYE Page [id number] at 1237 All edits/amendments must be made on the electronic document DICTATION DATE: 04/20/19 1237 SERVICE OBSERVER CHIEF: SAIMA 04/20/19 1237 RPT#: [id number] DC DATE: STATUS: ADM IN [facility] [address] [place] [address] END OF REPORT
--- NOTE | 2019-04-20 12:54 | MORECARE ---
CASE MANAGEMENT DISCHARGE SUMMARY PATIENT: ANEESH FRYE UNIT: [id number] ADM DATE: 04/02/19 AGE: 58 : 56 SEX: F ROOM/BED: D.3939 AUTHOR: SHANA,DOC PHYSICIAN: REFERRING PHYSICIAN: PETRA SOMMERS MD DATE OF SERVICE: 04/20/19 Discharge Plan Patient Name: ANEESH FRYE Facility: [facility]:[place] : 1960 Planned Disposition: Custodial Facility Anticipated Discharge Date: 04/20/19 Discharge Date: Expected LOS: 18 Initial Reviewer: [id number] Initial Review Date: 04/06/2019 Generated: 04/20/19 1:54 pm Comments DCP- Discharge Planning Updated by [id number]: Hernesto Camacho on 04/20/19 11:[address] Patient Name: ANEESH FRYE Admission Status: ER Accout number: [id number] Admission Date: 04-02-2019 : 1960 Admission Diagnosis:ACUTE KIDNEY FAILURE, UNSPECIFIED Attending: NEGRA SOMMERS Current LOS: 18 Anticipated DC Date: 04-20-2019 Planned Disposition: Custodial Facility Primary Insurance: [facility] PLANNED EXTERNAL PROVIDER: [facility], MEDICARE REHAB BED Discharge Planning Comments: CM RECEIVED CALL FROM [facility] OR [facility], , [facility] PT TODAY IF FAMILY CAN TRANSPORT. KYLE REPORTS THEY WILL NOT TRANSPORT TO [place] AND NEED [place] [facility]. CM NOTIFIED ABIGAIL OF [facility] OF NEED OF DIALYSIS UNIT IN [place]. CM SPOKE TO PT'S FATHER AND MOTHER IN ROOM, THEY ARE IN AGREEMENT WITH DISCHARGE PLAN TODAY, PT'S FATHER CAN DRIVE PT TO THE FACILITY. CM NOTIFIED BEDSIDE NURSE WHO WILL WEAN OXYGEN, PT'S FATHER REPORTS PT IS NOT ON OXYGEN AT HOME. FAMILY CONCERNED THAT PT IS INCONTINENT OF URINE AND WANTED CM TO ENSURE SHELTER KNOWS. CM RECEIVED CALL FROM KYLE OF [email or web address] WHO ADVISED THAT [facility] [facility] WILL ACCEPT PT FOR THURSDAY, THURSDAY AND THURSDAY, THEY JUST NEED THE DIALYSIS TIME. ZHAO ADVISED OF PT FAMILY CONCERNS. KYLE REPORTS THEY ALREADY KNEW FROM ADMISSION ASSESSMENT AND WILL WORK WITH INCONTINENCE. BEDSIDE NURSE ADVISED THAT DIALYSIS WILL BE COMPLETED BETWEEN 1500 AND 1530PM TODAY. CM NOTIFIED KYLE OF [facility] WHO INFORMED CM THAT THEY WILL ACCEPT PT AFTER DIALYSIS TODAY WITH FAMILY TRANSPORT. CM WAITING ON DIALYSIS UNIT ACCEPTANCE IN [place] AND WELCOME LETTER. [facility] WILL ACCEPT PT TODAY AFTER DIALYSIS. BEDSIDE NURSE NOTIFIED CM THAT PT IS 95% ON ROOM AIR AND DOES NOT REQUIRE OXYGEN FOR TRANSPORT. Principal Consulting Engineer: Hernesto Camacho Appended by Hernesto Camacho on 04/20/2019 12:49 CDT: CM SPOKE TO PT'S FATHER IN [facility], HE REQUESTED TO HAVE [facility] [employer] [facility] OPERATOR PT TOMORROW, HE HAS A BAD BACK AND DOES NOT WANT TO RISK INJURY TO PT OR HIMSELF. [facility], SPOKE TO KYLE WHO WILL ARRANGE VAN [employer] TR[employer] OWNER OPERATOR FOR TOMORROW. CM WAITING ON DIALYSIS UNIT ACCEPTANCE IN [place] AND WELCOME LETTER. [facility] WILL ACCEPT PT TOMORROW AND WILL ARRANGE VAN TRANSPORT. PT DOES NOT REQUIRE OXYGEN FOR TRANSPORT. Principal Consulting Engineer: Hernesto Camacho DCP- Discharge Planning Updated by [id number]: Hernesto Camacho on 04/19/19 3:[address] Patient Name: ANEESH FRYE Encounter No: [id number] : 1960 Primary Insurance: [employer] [facility] PFFS Anticipated DC Date: Planned Disposition: Custodial Facility External Planned Provider:[facility], MEDICARE REHAB BED DCP follow-up note: CM SPOKE TO KYLE OF [facility], THEY HAVE SENT INFORMATION TO INSURANCE FOR AUTHORIZATION AND PT WILL NEED TO HAVE NOTES INDICATING SHE CAN SIT UP FOR DURATION OF DIALYSIS IN [place]. CM FAXED UPDATE TO [facility] AT [phone]. CM WAITING ADMISSION DETERMINATION FROM [facility] IN [place]. IF [facility] WILL ACCEPT, PT WILL REQUIRE INSURANCE PRIOR AUTHORIZATION AND OUTPATIENT DIALYSIS UNIT ARRANGEMENT IN [place] WITH SCHEDULE ACCEPTABLE TO [facility] TO ACCOMODATE TRANPORATION NEEDS. Hernesto Camacho, CASE MANAGEMENT DCP- Discharge Planning Updated by [id number]: Hernesto Camacho on 04/18/19 4:[address] Patient Name: ANEESH FRYE Encounter No: [id number] : 1960 Primary Insurance: [employer] [facility] PFFS Anticipated DC Date: Planned Disposition: Custodial Facility External Planned Provider: [facility], MEDICARE REHAB BED DCP follow-up note: CM SPOKE TO KYLE OF [facility], SHE WILL MEET WITH PT TODAY AND [facility] ADMISSIONS TEAM IS REVIEWING REFERRAL FOR ADMISSION TO REHAB. CM INTRODUCED KYLE TO PT FOR PERSONAL ASSESMENT. CM WAITING ADMISSION DETERMINATION FROM [facility] IN [place]. IF [facility] WILL ACCEPT, PT WILL REQUIRE INSURANCE PRIOR AUTHORIZATION AND OUTPATIENT DIALYSIS UNIT ARRANGEMENT IN [place] WITH SCHEDULE ACCEPTABLE TO [facility] TO ACCOMODATE TRANPORATION NEEDS. Hernesto Camacho, CASE MANAGEMENT DCP- Discharge Planning Updated by [id number]: Hernesto Camacho on 04/15/19 3:[address] Patient Name: ANEESH FRYE Encounter No: [id number] : 1960 Primary Insurance: [employer] [facility] PF Anticipated DC Date: Planned Disposition: Custodial Facility External Planned Provider: [facility], MEDICARE REHAB BED DCP follow-up note: CM ATTEMPTED TO MEET WITH PT AND FAMILY IN ROOM AT 0945 HOURS, NO ONE PRESENT. CM MET WITH PT AND FAMILY IN ROOM AT ABOUT 1300 HOURS, DISCUSSED THAT [facility] WILL NOT ACCEPT PT THEY ARE NOT ABLE TO MEET PT'S NEEDS. CM DISCUSSED AVAILABILITY OF OTHER LONGTERM REHABS, PROVIDED LISTING FROM MEDICARE WEBSITE OF ALL LONGTERM FACILITIES WITHIN [address] OF [facility]. PARENTS CHOSE [facility], [facility] AND [facility]. CHOICE SIGNED. CM CALLED KYLE AT [facility], , NOTIFIED OF REFERRAL. CM FAXED REFERRAL FOR REHAB TO [facility] AT [phone]. CM WAITING ADMISSION DETERMINATION FROM [facility] IN [place]. IF [facility] WILL ACCEPT, PT WILL REQUIRE INSURANCE PRIOR AUTHORIZATION AND OUTPATIENT DIALYSIS UNIT ARRANGEMENT IN [place] WITH SCHEDULE ACCEPTABLE TO [facility] TO ACCOMODATE TRANPORATION NEEDS. Hernesto Camacho, CASE MANAGEMENT DCP- Discharge Planning Updated by [id number]: Caitlin Raines on 04/13/19 2:[address] @ 1334, RECEIVED A CALL FROM YASSINE WITH [facility]. SHE STATED THEY WOULD NOT BE ABLE TO ACCEPT THE PATIENT BECAUSE THEY CANNOT MEET HER NEDS. I HAVE RELAYED THIS MESSAGE TO ABRAM, DISCHARGE CASEMANAGER. DCP- Discharge Planning Updated by [id number]: Hernesto Camacho on 04/13/19 7:[address] Patient Name: ANEESH FRYE Encounter No: [id number] : 1960 Primary Insurance: [employer] [facility] PFFS Anticipated DC Date: Planned Disposition: Custodial Facility External Planned Provider: [facility], MEDICARE REHAB BED DCP follow-up note: ON 04-12-19, [facility] INFORMED MERARY RAINES THAT [facility] DID NOT RECEIVE REHAB REFERRAL. MERARY RAINES PROVIDED REFERRAL INFORMATION TO [facility]. CM FAXED UPDATE TO [facility] ON 04-13-19. CM WAITING ADMISSION DETERMINATION FROM [facility] WELL INSURANCE DETERMINATION. IF ACCEPTED AT [facility], WILL NEED OUTPATIENT DIALYSIS ARRANGMENT THAT WILL SUIT THE NURSING FACILITY SCHEDULE. Hernesto Camacho, CASE MANAGEMENT DCP- Discharge Planning Updated by [id number]: Donya Barajas on 04/08/19 2:[address] Patient Name: ANEESH FRYE Admission Status: ER Accout number: [id number] Admission Date: 04-02-2019 : 1960 Admission Diagnosis:ACUTE KIDNEY FAILURE, UNSPECIFIED Attending: NEGRA SOMMERS Current LOS: 6 Anticipated DC Date: Planned Disposition: Primary Insurance: [employer] [facility] PFFS Discharge Planning Comments: ANGELLA SIGNED FOR [facility]. PATIENT STARTING DIALYSIS TODAY. SOO APPROVED AND SCANNED INTO [employer]. CM WILL FAX REFERRAL. Principal Consulting Engineer: Donya Barajas DCP- Discharge Planning Updated by [id number]: Donya Barajas on 04/07/19 2:[address] Patient Name: ANEESH FRYE Admission Status: ER Accout number: [id number] Admission Date: 04-02-2019 : 1960 Admission Diagnosis:ACUTE KIDNEY FAILURE, UNSPECIFIED Attending: NEGRA SOMMERS Current LOS: 5 Anticipated DC Date: Planned Disposition: Primary Insurance: [employer] [facility] PFFS Discharge Planning Comments: CM MET WITH PATIENT'S FATHER SELINA FRYE, HE STATES HE IS HER GAURDIAN. STATES WOULD LIKE HER TO BE SEEN BY A PSYCH DOCTOR. I GAVE HIM A LIST OF SNF TO LOOK OVER, HE IS GETTING BACK WITH ME WITH HIS CHOICE. I FILLED OUT THE SOO TODAY AND FAXED IT. CM WILL FOLLOW. Principal Consulting Engineer: Donya Barajas DCP- Discharge Planning Updated by [id number]: Donya Barajas on 04/06/19 1:[address] Patient Name: ANEESH FRYE Admission Status: ER Accout number: [id number] Admission Date: 04-02-2019 : 1960 Admission Diagnosis:ACUTE KIDNEY FAILURE, UNSPECIFIED Attending: NEGRA SOMMERS Current LOS: 4 Anticipated DC Date: Planned Disposition: Primary Insurance: [facility] [employer] [facility] PFFS Discharge Planning Comments: CM MET WITH PATIENT ABOUT DC PLANNING/NEEDS. HER SISTER HORACE STATED THEIR PARENTS ABRAM FRYE HAVE GAURDIANSHIP. STATES SISTER HAS MR AND SCHIZOPHRENIA AND LIVES IN A CORRECTION, SISTER IS CONCERNED PATIENT MAY NEED REHAB AFTER DISCHARGE. STATES WHEN PARENTS ARRIVE THEY WILL CONTACT CM. Principal Consulting Engineer: Donyacyndi Barajas DCPIA - Discharge Planning Initial Assessment Updated by [id number]: Donya Barajas on 04/06/19 2:18 pm * Is the patient Alert and Oriented? No * Preadmission Environment Jail * List name and contact numbers for known caregivers / representatives who currently or will assist patient after discharge: ABRAM FRYE, PARENTS, Coverage Notice Reviewer: [id number] Jesus Camacho Notice Issued Date-Time: 04/15/2019 13:05 Notice Type: Patient Choice Letter Notice Delivered To: Family Member Relationship to Patient: Father Knitting Machine Mechanic Name: SELINA FRYE Delivery Method: HAND - Hand Delivered Karime Days: Prior Verbal Notification: Recipient Understood Notice: Yes Recipient Signature: Yes Med Rec Note Co-signed by Attending: Coverage Notice Comment: [facility] Last DP export: 04/20/19 11:37 a Patient Name: ANEESH FRYE Page [id number] at 1254 All edits/amendments must be made on the electronic document DICTATION DATE: 04/20/19 1254 BIOMEDICAL FIELD SERVICE ENGINEER: SAIMA 04/20/19 1254 RPT#: [id number] DC DATE: STATUS: ADM IN [facility] [address] [place] [address] END OF REPORT
--- NOTE | 2019-04-20 15:39 | MORECARE ---
CASE MANAGEMENT DISCHARGE SUMMARY PATIENT: ANEESH FRYE UNIT: [id number] ADM DATE: 04/02/19 AGE: 58 : 56 SEX: F ROOM/BED: D.7292 AUTHOR: SHANA,DOC PHYSICIAN: REFERRING PHYSICIAN: PETRA SOMMERS MD DATE OF SERVICE: 04/20/19 Discharge Plan Patient Name: ANEESH FRYE Facility: [facility]:[place] : 1960 Planned Disposition: Snf Facility Anticipated Discharge Date: 04/20/19 Discharge Date: Expected LOS: 18 Initial Reviewer: [id number] Initial Review Date: 04/06/2019 Generated: 04/20/19 4:39 pm DCP- Discharge Planning Updated by [id number]: Hernesto Camacho on 04/20/19 11:[address] Patient Name: ANEESH FRYE Admission Status: ER Accout number: [id number] Admission Date: 04-02-2019 : 1960 Admission Diagnosis:ACUTE KIDNEY FAILURE, UNSPECIFIED Attending: NEGRA SOMMERS Current LOS: 18 Anticipated DC Date: 04-20-2019 Planned Disposition: Snf Facility Primary Insurance: [facility] PLANNED EXTERNAL PROVIDER: [facility], MEDICARE REHAB BED Discharge Planning Comments: CM RECEIVED CALL FROM KYLE OR [facility], , [facility] IF FAMILY CAN TRANSPORT. KYLE REPORTS THEY WILL NOT TRANSPORT TO [place] AND NEED [place] [facility]. CM NOTIFIED ABIG[facility] OF [facility] OF NEED OF DIALYSIS UNIT IN [place]. CM SPOKE TO PT'S FATHER AND MOTHER IN ROOM, THEY ARE IN AGREEMENT WITH DISCHARGE PLAN TODAY, PT'S FATHER CAN DRIVE PT TO THE FACILITY. CM NOTIFIED BEDSIDE NURSE WHO WILL WEAN OXYGEN, PT'S FATHER REPORTS PT IS NOT ON OXYGEN AT HOME. FAMILY CONCERNED THAT PT IS INCONTINENT OF URINE AND WANTED CM TO ENSURE [facility] KNOWS. CM RECEIVED CALL FROM KYLE OF [employer] WHO ADVISED THAT [facility] WILL ACCEPT PT FOR THURSDAY, THURSDAY AND THURSDAY, THEY JUST NEED THE DIALYSIS TIME. ZHAO ADVISED OF PT FAMILY CONCERNS. KYLE REPORTS THEY ALREADY KNEW FROM ADMISSION ASSESSMENT AND WILL WORK WITH INCONTINENCE. BEDSIDE NURSE ADVISED THAT DIALYSIS WILL BE COMPLETED BETWEEN 1500 AND 1530PM TODAY. CM NOTIFIED KYLE OF [facility] WHO INFORMED CM THAT THEY WILL ACCEPT PT AFTER DIALYSIS TODAY WITH FAMILY TRANSPORT. CM WAITING ON DIALYSIS UNIT ACCEPTANCE IN [place] AND WELCOME LETTER. [facility] WILL ACCEPT PT TODAY AFTER DIALYSIS. BEDSIDE NURSE NOTIFIED CM THAT PT IS 95% ON ROOM AIR AND DOES NOT REQUIRE OXYGEN FOR TRANSPORT. Reserves Clerk: Hernesto Camacho Appended by Hernesto Camacho on 04/20/2019 12:49 CDT: CM SPOKE TO PT'S FATHER IN [facility], HE REQUESTED TO HAVE [facility]ON[facility] MACHINE OPERATOR PT TOMORROW, HE HAS A BAD BACK AND DOES NOT WANT TO RISK INJURY TO PT OR HIMSELF. CM CALLED [facility], SPOKE TO KYLE WHO WILL ARRANGE VAN PRODUCTION HONING MACHINE OPERATOR FOR TOMORROW. CM WAITING ON DIALYSIS UNIT ACCEPTANCE IN [place] AND WELCOME LETTER. [facility] WILL ACCEPT PT TOMORROW AND WILL ARRANGE VAN TRANSPORT. PT DOES NOT REQUIRE OXYGEN FOR TRANSPORT. Reserves Clerk: Hernesto Camacho DCP- Discharge Planning Updated by [id number]: Hernesto Camacho on 04/19/19 3:[address] Patient Name: ANEESH FRYE Encounter No: [id number] : 1960 Primary Insurance: [employer] [facility] PFFS Anticipated DC Date: Planned Disposition: Snf Facility External [facility] MEDICARE REHAB BED DCP follow-up note: CM SPOKE TO KYLE OF [facility], THEY HAVE SENT INFORMATION TO INSURANCE FOR AUTHORIZATION AND PT WILL NEED TO HAVE NOTES INDICATING SHE CAN SIT UP FOR DURATION OF DIALYSIS IN [place]AIR. CM FAXED UPDATE TO [facility] AT [phone]. CM WAITING ADMISSION DETERMINATION FROM [facility] IN [place]. IF [facility] WILL ACCEPT, PT WILL REQUIRE INSURANCE PRIOR AUTHORIZATION AND OUTPATIENT DIALYSIS UNIT ARRANGEMENT IN [place] WITH SCHEDULE ACCEPTABLE TO [facility] TO ACCOMODATE TRANPORATION NEEDS. Hernesto Camacho, CASE MANAGEMENT DCP- Discharge Planning Updated by [id number]: Hernesto Camacho on 04/18/19 4:[address] Patient Name: ANEESH FRYE Encounter No: [id number] : 1960 Primary Insurance: [employer] [facility] PFFS Anticipated DC Date: Planned Disposition: Snf Facility External Planned Provider: [facility], MEDICARE REHAB BED DCP follow-up note: CM SPOKE TO KYLE OF [facility], SHE WILL MEET WITH PT TODAY AND [facility] ADMISSIONS TEAM IS REVIEWING REFERRAL FOR ADMISSION TO REHAB. CM INTRODUCED KYLE TO PT FOR PERSONAL ASSESMENT. CM WAITING ADMISSION DETERMINATION FROM [facility] IN [place]. IF [facility] WILL ACCEPT, PT WILL REQUIRE INSURANCE PRIOR AUTHORIZATION AND OUTPATIENT DIALYSIS UNIT ARRANGEMENT IN [place] WITH SCHEDULE ACCEPTABLE TO [facility] TO ACCOMODATE TRANPORATION NEEDS. Hernesto Camacho, CASE MANAGEMENT DCP- Discharge Planning Updated by [id number]: Hernesto Camacho on 04/15/19 3:[address] Patient Name: ANEESH FRYE Encounter No: [id number] : 1960 Primary Insurance: [employer] [facility] PF Anticipated DC Date: Planned Disposition: Snf Facility External Planned Provider: [facility], MEDICARE REHAB BED DCP follow-up note: CM ATTEMPTED TO MEET WITH PT AND FAMILY IN ROOM AT 0945 HOURS, NO ONE PRESENT. CM MET WITH PT AND FAMILY IN ROOM AT ABOUT 1300 HOURS, DISCUSSED THAT [facility] WILL NOT ACCEPT PT THEY ARE NOT ABLE TO MEET PT'S NEEDS. CM DISCUSSED AVAILABILITY OF OTHER GROUP HOME REHABS, PROVIDED LISTING FROM MEDICARE WEBSITE OF ALL GROUP HOME FACILITIES WITHIN [address] OF [facility]. PARENTS CHOSE [facility], [facility] AND [facility]. CHOICE SIGNED. CM CALLED KYLE AT [facility], , NOTIFIED OF REFERRAL. CM FAXED REFERRAL FOR REHAB TO [facility] AT [phone]. CM WAITING ADMISSION DETERMINATION FROM [facility] IN [place]. IF [facility] WILL ACCEPT, PT WILL REQUIRE INSURANCE PRIOR AUTHORIZATION AND OUTPATIENT DIALYSIS UNIT ARRANGEMENT IN [place] WITH SCHEDULE ACCEPTABLE TO [facility] TO ACCOMODATE TRANPORATION NEEDS. Hernesto Camacho, CASE MANAGEMENT DCP- Discharge Planning Updated by [id number]: Caitlin Raines on 04/13/19 2:[address] @ 1509, RECEIVED A CALL FROM YASSINE WITH [facility]. SHE STATED THEY WOULD NOT BE ABLE TO ACCEPT THE PATIENT BECAUSE THEY CANNOT MEET HER NEDS. I HAVE RELAYED THIS MESSAGE TO ABRAM, DISCHARGE CASEMANAGER. DCP- Discharge Planning Updated by [id number]: Hernesto Camacho on 04/13/19 7:[address] Patient Name: ANEESH FRYE Encounter No: [id number] : 1960 Primary Insurance: [employer] [facility] PFFS Anticipated DC Date: Planned Disposition: Snf Facility External Planned Provider: [facility], MEDICARE REHAB BED DCP follow-up note: ON 04-12-19, [facility] INFORMED MERARY RAINES THAT [facility] DID NOT RECEIVE REHAB REFERRAL. MERARY RAINES PROVIDED REFERRAL INFORMATION TO [facility]. CM FAXED UPDATE TO [facility] ON 04-13-19. CM WAITING ADMISSION DETERMINATION FROM [facility] INSURANCE DETERMINATION. IF ACCEPTED AT [facility], WILL NEED OUTPATIENT DIALYSIS ARRANGMENT THAT WILL SUIT THE NURSING FACILITY SCHEDULE. Hernesto Camacho, CASE MANAGEMENT DCP- Discharge Planning Updated by [id number]: Donya Barajas on 04/08/19 2:[address] Patient Name: ANEESH FRYE Admission Status: ER Accout number: [id number] Admission Date: 04-02-2019 : 1960 Admission Diagnosis:ACUTE KIDNEY FAILURE, UNSPECIFIED Attending: NEGRA SOMMERS Current LOS: 6 Anticipated DC Date: Planned Disposition: Primary Insurance: [employer] [facility] PFFS Discharge Planning Comments: ANGELLA SIGNED FOR [facility]. PATIENT STARTING DIALYSIS TODAY. SOO APPROVED AND SCANNED INTO [employer]. CM WILL FAX REFERRAL. Reserves Clerk: Donya Barajas DCP- Discharge Planning Updated by [id number]: Donya Barajas on 04/07/19 2:[address] Patient Name: ANEESH FRYE Admission Status: ER Accout number: [id number] Admission Date: 04-02-2019 : 1960 Admission Diagnosis:ACUTE KIDNEY FAILURE, UNSPECIFIED Attending: NEGRA SOMMERS Current LOS: 5 Anticipated DC Date: Planned Disposition: Primary Insurance: [employer] [facility] PFFS Discharge Planning Comments: CM MET WITH PATIENT'S FATHER SELINA FRYE, HE STATES HE IS HER GAURDIAN. STATES WOULD LIKE HER TO BE SEEN BY A PSYCH DOCTOR. I GAVE HIM A LIST OF SNF TO LOOK OVER, HE IS GETTING BACK WITH ME WITH HIS CHOICE. I FILLED OUT THE SOO TODAY AND FAXED IT. CM WILL FOLLOW. Reserves Clerk: Donya Barajas DCP- Discharge Planning Updated by [id number]: Donya Barajas on 04/06/19 1:[address] Patient Name: ANEESH FRYE Admission Status: ER Accout number: [id number] Admission Date: 04-02-2019 : 1960 Admission Diagnosis:ACUTE KIDNEY FAILURE, UNSPECIFIED Attending: NEGRA SOMMERS Current LOS: 4 Anticipated DC Date: Planned Disposition: Primary Insurance: [facility] [employer] ADVANTAGE [facility] PFFS Discharge Planning Comments: CM MET WITH PATIENT ABOUT DC PLANNING/NEEDS. HER SISTER HORACE STATED THEIR PARENTS ABRAM FRYE HAVE GAURDIANSHIP. STATES SISTER HAS MR AND SCHIZOPHRENIA AND LIVES IN A [place], SISTER IS CONCERNED PATIENT MAY NEED REHAB AFTER DISCHARGE. STATES WHEN PARENTS ARRIVE THEY WILL CONTACT CM. Reserves Clerk: Donya Barajas DCPIA - Discharge Planning Initial Assessment Updated by [id number]: Donya Barajas on 04/06/19 2:18 pm * Is the patient Alert and Oriented? No * Preadmission Environment Alf * List name and contact numbers for known caregivers / representatives who currently or will assist patient after discharge: ABRAM FRYE, PARENTS, External Providers External Provider: OTHER-OTHER Next Contact Date: 04/20/2019 Service Request Date: Service Type: Resolution: Reviewer: Comments: Coverage Notice Reviewer: [id number] - Hernesto Camacho Notice Issued Date-Time: 04/15/2019 13:05 Notice Type: Patient Choice Letter Notice Delivered To: Family Member Relationship to Patient: Father Catalog Library Assistant Name: SELINA FRYE Delivery Method: HAND - Hand Delivered Karime Days: Prior Verbal Notification: Recipient Understood Notice: Yes Recipient Signature: Yes Med Rec Note Co-signed by Attending: Coverage Notice Comment: 1 [facility] Last DP export: 04/20/19 11:54 a Patient Name: ANEESH FRYE Page 03135 at 1539 All edits/amendments must be made on the electronic document DICTATION DATE: 04/20/191538 CAREER DEVELOPMENT COUNSELOR: SAIMA 04/20/191538 RPT#: [id number] DC DATE: STATUS: ADM IN [facility] [address] [place] [address] END OF REPORT
--- NOTE | 2019-04-20 15:49 | MORECARE ---
CASE MANAGEMENT DISCHARGE SUMMARY PATIENT: ANEESH FRYE UNIT: [id number] ADM DATE: 04/02/19 AGE: 58 : 56 SEX: F ROOM/BED: D.3678 AUTHOR: SHANA,DOC PHYSICIAN: REFERRING PHYSICIAN: PETRA SOMMERS MD DATE OF SERVICE: 04/20/19 Discharge Plan Patient Name: ANEESH FRYE Facility: [facility]:[place] : 1960 Planned Disposition: Long Term Facility Anticipated Discharge Date: 04/20/19 Discharge Date: Expected LOS: 18 Initial Reviewer: [id number] Initial Review Date: 04/06/2019 Generated: 04/20/19 4:49 pm Comments DCP- Discharge Planning Updated by [id number]: Hernesto Camacho on 04/20/19 2:[address] Patient Name: ANEESH FRYE Admission Status: ER Accout number: [id number] Admission Date: 04-02-2019 : 1960 Admission Diagnosis:ACUTE KIDNEY FAILURE, UNSPECIFIED Attending: NEGRA SOMMERS Current LOS: 18 Anticipated DC Date: 04-20-2019 Planned Disposition: Long Term Facility Primary Insurance: [facility] PLANNED EXTERNAL PROVIDER: [facility], MEDICARE REHAB BED Discharge Planning Comments: CM RECEIVED CALL FROM KYLE OR [facility], , [facility] WILL ACCEPT PT TODAY IF FAMILY CAN TRANSPORT. KYLE REPORTS THEY WILL NOT TRANSPORT TO [place] AND NEED [place] [facility]. CM NOTIFIED ABIGAIL OF [facility] OF NEED OF DIALYSIS UNIT IN [place]. CM SPOKE TO PT'S FATHER AND MOTHER IN ROOM, THEY ARE IN AGREEMENT WITH DISCHARGE PLAN TODAY, PT'S FATHER CAN DRIVE PT TO THE FACILITY. CM NOTIFIED BEDSIDE NURSE WHO WILL WEAN OXYGEN, PT'S FATHER REPORTS PT IS NOT ON OXYGEN AT HOME. FAMILY CONCERNED THAT PT IS INCONTINENT OF URINE AND WANTED CM TO ENSURE [facility] KNOWS. CM RECEIVED CALL FROM KYLE OF [facility] WHO ADVISED THAT [facility] WILL ACCEPT PT FOR THURSDAY, THURSDAY AND THURSDAY, THEY JUST NEED THE DIALYSIS TIME. ZHAO ADVISED OF PT FAMILY CONCERNS. KYLE REPORTS THEY ALREADY KNEW FROM ADMISSION ASSESSMENT AND WILL WORK WITH INCONTINENCE. BEDSIDE NURSE ADVISED THAT DIALYSIS WILL BE COMPLETED BETWEEN 1500 AND 1530PM TODAY. CM NOTIFIED KYLE OF [facility] WHO INFORMED CM THAT THEY WILL ACCEPT PT AFTER DIALYSIS TODAY WITH FAMILY TRANSPORT. CM WAITING ON DIALYSIS UNIT ACCEPTANCE IN [place] AND WELCOME LETTER. [facility] WILL ACCEPT PT TODAY AFTER DIALYSIS. BEDSIDE NURSE NOTIFIED CM THAT PT IS 95% ON ROOM AIR AND DOES NOT REQUIRE OXYGEN FOR TRANSPORT. Break Up Worker: Hernesto Camacho Appended by Hernesto Camacho on 04/20/2019 12:49 CDT: CM SPOKE TO PT'S FATHER IN [facility], HE REQUESTED TO HAVE [facility] PT TOMORROW, HE HAS A BAD BACK AND DOES NOT WANT TO RISK INJURY TO PT OR HIMSELF. CM CALLED [facility], SPOKE TO KYLE WHO WILL ARRANGE VAN BLOCKMAN FOR TOMORROW. CM WAITING ON DIALYSIS UNIT ACCEPTANCE IN [place] AND WELCOME LETTER. [facility] WILL ACCEPT PT TOMORROW AND WILL ARRANGE VAN TRANSPORT. PT DOES NOT REQUIRE OXYGEN FOR TRANSPORT. Break Up Worker: Hernesto Camacho Appended by Hernesto Camacho on 04/20/2019 15:48 CDT: CM WAITING ON DIALYSIS UNIT ACCEPTANCE IN [place] AND WELCOME LETTER. [facility] WILL ACCEPT PT TOMORROW AND HAS ARRANGED VAN TRANSPORT FOR 0900 ON 04-21-10. PT DOES NOT REQUIRE OXYGEN FOR TRANSPORT. Break Up Worker: Hernesto Camacho DCP- Discharge Planning Updated by [id number]: Hernesto Camacho on 04/19/19 3:[address] Patient Name: ANEESH FRYE Encounter No: [id number] : 1960 Primary Insurance: [facility] Anticipated DC Date: Planned Disposition: Long Term Facility External Planned Provider:[facility], MEDICARE REHAB BED DCP follow-up note: CM [facility], THEY HAVE SENT INFORMATION TO INSURANCE FOR AUTHORIZATION AND PT WILL NEED TO HAVE NOTES INDICATING SHE CAN SIT UP FOR DURATION OF DIALYSIS IN [place]. CM FA[facility]ED [facility] AT [phone]. CM WAITING ADMISSION DETERMINATION FROM [facility] [place]. IF [facility] WILL ACCEPT, PT WILL REQUIRE INSURANCE PRIOR AUTHORIZATION AND OUTPATIENT DIALYSIS UNIT ARRANGEMENT IN [place] WITH SCHEDULE ACCEPTABLE TO [facility] TO ACCOMODATE TRANPORATION NEEDS. Hernesto Camacho, CASE MANAGEMENT DCP- Discharge Planning Updated by [id number]: Hernesto Camacho on 04/18/19 4:[address] Patient Name: ANEESH FRYE Encounter No: [id number] : 1960 Primary Insurance: [employer] [facility] PFFS Anticipated DC Date: Planned Disposition: Long Term Facility External Planned Provider: [facility], MEDICARE REHAB BED DCP follow-up note: CM [facility], SHE WILL MEET WITH PT TODAY AND [facility] ADMISSIONS TEAM IS REVIEWING REFERRAL FOR ADMISSION TO REHAB. CM INTRODUCED KYLE TO PT FOR PERSONAL ASSESMENT. CM WAITING [facility] [place]. IF [facility] WILL ACCEPT, PT WILL REQUIRE INSURANCE PRIOR AUTHORIZATION AND OUTPATIENT DIALYSIS UNIT ARRANGEMENT IN [place] WITH SCHEDULE ACCEPTABLE TO [facility] TO ACCOMODATE TRANPORATION NEEDS. Hernesto Camacho, CASE MANAGEMENT DCP- Discharge Planning Updated by [id number]: Hernesto Camacho on 04/15/19 3:[address] Patient Name: ANEESH FRYE Encounter No: [id number] : 1960 Primary Insurance: [email or web address] [facility] PFFS Anticipated DC Date: Planned Disposition: Long Term Facility External [facility] MEDICARE REHAB BED DCP follow-up note: CM ATTEMPTED TO MEET WITH PT AND FAMILY IN ROOM AT 0945 HOURS, NO ONE PRESENT. CM MET WITH PT AND FAMILY IN ROOM AT ABOUT 1300 HOURS, DISCUSSED THAT [facility] WILL NOT ACCEPT PT THEY ARE NOT ABLE TO MEET PT'S NEEDS. CM DISCUSSED AVAILABILITY OF OTHER SENIOR CARE REHABS, PROVIDED LISTING FROM MEDICARE WEBSITE OF ALL SENIOR CARE FACILITIES WITHIN 50 MILES OF PARENTS [facility]. PARENTS CHOSE [facility], [facility] AND [facility]. CHOICE SIGNED. CM CALLED KYLE AT [facility], , NOTIFIED OF REFERRAL. CM FAXED REFERRAL FOR REHAB TO [facility] AT [phone]. CM WAITING [facility] [place]. IF [facility] WILL ACCEPT, PT WILL REQUIRE INSURANCE PRIOR AUTHORIZATION AND OUTPATIENT DIALYSIS UNIT ARRANGEMENT IN [place] WITH SCHEDULE ACCEPTABLE TO [facility] TO ACCOMODATE TRANPORATION NEEDS. Hernesto Camacho, CASE MANAGEMENT DCP- Discharge Planning Updated by [id number]: Caitlin Raines on 04/13/19 2:[address] @ 1507, RECEIVED A CALL FROM YASSINE WITH [facility]. SHE STATED THEY WOULD NOT BE ABLE TO ACCEPT THE PATIENT BECAUSE THEY CANNOT MEET HER NEDS. I HAVE RELAYED THIS MESSAGE TO [place] [place] CASEMANAGER. DCP- Discharge Planning Updated by [id number]: Hernesto Camacho on 04/13/19 7:[address] Patient Name: ANEESH FRYE Encounter No: [id number] : 1960 Primary Insurance: [employer] [facility] PFFS Anticipated DC Date: Planned Disposition: Long Term Facility External Planned Provider[facility] BED DCP follow-up note: ON 04-12-19, [facility] INFORMED MERARY RAINES THAT [facility] DID NOT RECEIVE REHAB REFERRAL. MERARY RAINES PROVIDED REFERRAL INFORMATION TO [facility]. CM FAXED UPDATE TO [facility] ON 04-13-19. CM WAITING ADMISSION DETERMINATION FROM [facility] WE[facility] INSURANCE DETERMINATION. IF ACCEPTED AT [facility], WILL NEED OUTPATIENT DIALYSIS ARRANGMENT THAT WILL SUIT THE NURSING FACILITY SCHEDULE. Hernesto Camacho, CASE MANAGEMENT DCP- Discharge Planning Updated by [id number]: Donya Barajas on 04/08/19 2:[address] Patient Name: ANEESH FRYE Admission Status: ER Accout number: [id number] Admission Date: 04-02-2019 : 1960 Admission Diagnosis:ACUTE KIDNEY FAILURE, UNSPECIFIED Attending: NEGRA SOMMERS Current LOS: 6 Anticipated DC Date: Planned Disposition: Primary Insurance: [employer] [facility] PFFS Discharge Planning Comments: ANGELLA SIGNED FOR [facility]. PATIENT STARTING DIALYSIS TODAY. SOO APPROVED AND SCANNED INTO [facility]. CM WILL FAX REFERRAL. Break Up Worker: Donya Barajas DCP- Discharge Planning Updated by [id number]: Donya Barajas on 04/07/19 2:[address] Patient Name: ANEESH FRYE Admission Status: ER Accout number: [id number] Admission Date: 04-02-2019 : 1960 Admission Diagnosis:ACUTE KIDNEY FAILURE, UNSPECIFIED Attending: NEGRA SOMMERS Current LOS: 5 Anticipated DC Date: Planned Disposition: Primary Insurance: [employer] [facility] PFFS Discharge Planning Comments: CM MET WITH PATIENT'S FATHER SELINA FRYE, HE STATES HE IS HER GAURDIAN. STATES WOULD LIKE HER TO BE SEEN BY A PSYCH DOCTOR. I GAVE HIM A LIST OF SNF TO LOOK OVER, HE IS GETTING BACK WITH ME WITH HIS CHOICE. I FILLED OUT THE SOO TODAY AND FAXED IT. CM WILL FOLLOW. Break Up Worker: Donya Barajas DCP- Discharge Planning Updated by [id number]: Donya Barajas on 04/06/19 1:[address] Patient Name: ANEESH FRYE Admission Status: ER Accout number: [id number] Admission Date: 04-02-2019 : 1960 Admission Diagnosis:ACUTE KIDNEY FAILURE, UNSPECIFIED Attending: NEGRA SOMMERS Current LOS: 4 Anticipated DC Date: Planned Disposition: Primary Insurance: [employer] [facility] PF Discharge Planning Comments: CM MET WITH PATIENT ABOUT DC PLANNING/NEEDS. HER SISTER HORACE STATED THEIR PARENTS ABRAM FRYE HAVE GAURDIANSHIP. STATES SISTER HAS MR AND SCHIZOPHRENIA AND LIVES IN A SENIOR LIVING, SISTER IS CONCERNED PATIENT MAY NEED REHAB AFTER DISCHARGE. STATES WHEN PARENTS ARRIVE THEY WILL CONTACT CM. Break Up Worker: Donya Barajas DCPIA - Discharge Planning Initial Assessment Updated by [id number]: Donya Barajas on 04/06/19 2:18 pm * Is the patient Alert and Oriented? No * Preadmission Environment Shelter * List name and contact numbers for known caregivers / representatives who currently or will assist patient after discharge: ABRAM FRYE, PARENTS, Coverage Notice Reviewer: [id number] Jesus Camacho Notice Issued Date-Time: 04/15/2019 13:05 Notice Type: Patient Choice Letter Notice Delivered To: Family Member Relationship to Patient: Father Principal Research Economist Name: SELINA FRYE Delivery Method: HAND - Hand Delivered Karime Days: Prior Verbal Notification: Recipient Understood Notice: Yes Recipient Signature: Yes Med Rec Note Co-signed by Attending: Coverage Notice Comment: [facility] Last DP export: 04/20/19 2:39 p Patient Name: ANEESH FRYE Page 34419 at 1548 All edits/amendments must be made on the electronic document DICTATION DATE: 04/20/19 1549 INVESTMENT BANKING ANALYST: DM 04/20/19 1549 RPT#: [id number] DC DATE: STATUS: ADM IN [facility] [address] [place] [address] END OF REPORT
--- NOTE | 2019-04-20 17:10 | MORECARE ---
CASE MANAGEMENT DISCHARGE SUMMARY PATIENT: ANEESH FRYE UNIT: [id number] ADM DATE: 04/02/19 AGE: 58 : 56 SEX: F ROOM/BED: D.3981 AUTHOR: SHANA,DOC PHYSICIAN: REFERRING PHYSICIAN: PETRA SOMMERS MD DATE OF SERVICE: 04/20/19 Discharge Plan Patient Name: ANEESH FRYE Facility: [facility]:[place] : 1960 Planned Disposition: [facility] Facility Anticipated Discharge Date: 04/20/19 Discharge Date: Expected LOS: 18 Initial Reviewer: [id number] Initial Review Date: 04/06/2019 Generated: 04/20/19 6:10 pm Comments DCP- Discharge Planning Updated by [id number]: Hernesto Camacho on 04/20/19 4:[address] Patient Name: ANEESH FRYE Encounter No: [id number] : 1960 Primary Insurance: [employer] [facility] PFFS Anticipated DC Date: 04-20-2019 Planned Disposition: [facility] Facility External Planned Provider: [facility], MEDICARE REHAB BED DCP follow-up note: CM RECEIVED DIALYSIS UNIT WELCOME LETTER, PT'S FIRST APPOINTMENT AT [facility] IS THURSDAY AT 10:45AM. CM PROVIDED THE LETTER TO PT'S FATHER / POWER OF [employer]IGARETTE MACHINES MECHANIC TO BRING HIS GUARDIANSHIP PAPERS TO THE DIALYSIS UNIT THURSDAY BEFORE PT ARRIVES TO SIGN ADMISSION PAPERWORK AND TO BRING PT'S ID IN TWO FORMS WITH PHOTO ID WELL INSURANCE CARDS. PT'S FATHER WILL DO THIS. HE IS IN AGREEMENT WITH DISCHARGE TO [facility] TOMORROW MORNING, VAN TIME IS [address] OCONNELL NOTIFIED. CREATIVE SERVICES PRODUCER NURSE NOTIFIED. COPY OF WELCOME LETTER PLACED IN CHART. ON 04-21-19, NURSE REPORT TO BE CALLED TO [facility], , FAX DISCHARGE INFORMATION TO [facility] AT [phone]. [facility] TO PROVIDE VAN STEEL FLOOR PAN PLACING SUPERVISOR AT 0900AM. Hernesto Camacho, CASE MANAGEMENT DCP- Discharge Planning Updated by [id number]: Hernesto Camacho on 04/20/19 2:[address] Patient Name: ANEESH FRYE Admission Status: ER Accout number: [id number] Admission Date: 04-02-2019 : 1960 Admission Diagnosis:ACUTE KIDNEY FAILURE, UNSPECIFIED Attending: NEGRA SOMMERS Current LOS: 18 Anticipated DC Date: 04-20-2019 Planned Disposition: [facility] Facility Primary Insurance: [facility] [employer] PF PLANNED EXTERNAL PROVIDER: [facility], MEDICARE REHAB BED Discharge Planning Comments: ZHAO RECEIVED CALL FROM [facility] OR [facility], , [facility] WILL ACCEPT PT TODAY IF FAMILY CAN TRANSPORT. KYLE REPORTS THEY WILL NOT TRANSPORT TO [place] AND NEED [place] [facility]. ZHAO NOTIFIED ABIGAIL OF [facility] OF NEED OF DIALYSIS UNIT IN [place]. CM SPOKE TO PT'S FATHER AND MOTHER IN ROOM, THEY ARE IN AGREEMENT WITH DISCHARGE PLAN TODAY, PT'S FATHER CAN DRIVE PT TO THE FACILITY. CM NOTIFIED BEDSIDE NURSE WHO WILL WEAN OXYGEN, PT'S FATHER REPORTS PT IS NOT ON OXYGEN AT HOME. FAMILY CONCERNED THAT PT IS INCONTINENT OF URINE AND WANTED CM TO ENSURE [facility] KNOWS. ZHAO RECEIVED CALL FROM KYLE OF [facility] WHO ADVISED THAT [facility] [facility] WILL ACCEPT PT FOR THURSDAY, THURSDAY AND THURSDAY, THEY JUST NEED THE DIALYSIS TIME. CM ADVISED OF PT FAMILY CONCERNS. KYLE REPORTS THEY ALREADY KNEW FROM ADMISSION ASSESSMENT AND WILL WORK WITH INCONTINENCE. BEDSIDE NURSE ADVISED THAT DIALYSIS WILL BE COMPLETED BETWEEN 1500 AND 1530PM TODAY. CM NOTIFIED YKLE OF [facility] WHO INFORMED CM THAT THEY WILL ACCEPT PT AFTER DIALYSIS TODAY WITH FAMILY TRANSPORT. CM WAITING ON DIALYSIS UNIT ACCEPTANCE IN [place] AND WELCOME LETTER. [facility] WILL ACCEPT PT TODAY AFTER DIALYSIS. BEDSIDE NURSE NOTIFIED ZHAO THAT PT IS 95% ON ROOM AIR AND DOES NOT REQUIRE OXYGEN FOR TRANSPORT. Security Project Manager: Hernesto Camacho Appended by Hernesto Camacho on 04/20/2019 12:49 CDT: CM SPOKE TO PT'S FATHER IN [facility], HE REQUESTED TO HAVE [facility] STEEL FLOOR PAN PLACING SUPERVISOR PT TOMORROW, HE HAS A BAD BACK AND DOES NOT WANT TO RISK INJURY TO PT OR HIMSELF. CM CALLED [facility], SPOKE TO KYLE WHO WILL ARRANGE VAN STEEL FLOOR PAN PLACING SUPERVISOR FOR TOMORROW. CM WAITING ON DIALYSIS UNIT ACCEPTANCE IN [place] AND WELCOME LETTER. [facility] WILL ACC[facility]PT PT TOMORROW AND WILL ARRANGE VAN TRANSPORT. PT DOES NOT REQUIRE OXYGEN FOR TRANSPORT. Security Project Manager: Hernesto Camacho Appended by Hernesto Camacho on 04/20/2019 15:48 CDT: CM WAITING ON DIALYSIS UNIT ACCEPTANCE IN [place] AND WELCOME LETTER. [facility] WILL ACCEPT PT TOMORROW AND HAS ARRANGED VAN TRANSPORT FOR 0900 ON 04-21-10. PT DOES NOT REQUIRE OXYGEN FOR TRANSPORT. Security Project Manager: Hernesto Camacho DCP- Discharge Planning Updated by [id number]: Hernesto Camacho on 04/19/19 3:[address] Patient Name: ANEESH FRYE Encounter No: [id number] : 1960 Primary Insurance: [employer] [facility] PF Anticipated DC Date: Planned Disposition: [facility] Facility External Planned Provider:[facility], MEDICARE REHAB BED DCP follow-up note: CM SPOKE TO KYLE [facility], THEY HAVE SENT INFORMATION TO INSURANCE FOR AUTHORIZATION AND PT WILL NEED TO HAVE NOTES INDICATING SHE CAN SIT UP FOR DURATION OF DIALYSIS IN [place]. CM FAXED UPDATE TO [facility] AT [phone]. CM WAITING ADMISSION DETERMINATION FROM [facility] IN [place]. IF [facility] WILL ACCEPT, PT WILL REQUIRE INSURANCE PRIOR AUTHORIZATION AND OUTPATIENT DIALYSIS UNIT ARRANGEMENT IN [place] WITH SCHEDULE ACCEPTABLE TO [facility] TO ACCOMODATE TRANPORATION NEEDS. SHAYY De Leon MANAGEMENT DCP- Discharge Planning Updated by [id number]: Hernesto Camacho on 04/18/19 4:[address] Patient Name: ANEESH FYRE Encounter No: [id number] : 1960 Primary Insurance: [employer] [facility] PF Anticipated DC Date: Planned Disposition: [facility] Facility External [facility], MEDICARE REHAB BED DCP follow-up note: CM SPOKE TO KYLE OF [facility], SHE WILL MEET WITH PT TODAY AND [facility] ADMISSIONS TEAM IS REVIEWING REFERRAL FOR ADMISSION TO REHAB. CM INTRODUCED KYLE TO PT FOR PERSONAL ASSESMENT. CM WAITING ADMISSION DETERMINATION FROM [facility] IN [place]. IF [facility] WILL ACCEPT, PT WILL REQUIRE INSURANCE PRIOR AUTHORIZATION AND OUTPATIENT DIALYSIS UNIT ARRANGEMENT IN [place] WITH SCHEDULE ACCEPTABLE TO [facility] TO ACCOMODATE TRANPORATION NEEDS. SHAYY De Leon MANAGEMENT DCP- Discharge Planning Updated by [id number]: Hernesto Camacho on 04/15/19 3:[address] Patient Name: ANEESH FRYE Encounter No: [id number] : 1960 Primary Insurance: [employer] [facility] PFFS Anticipated DC Date: Planned Disposition: [facility] Facility External Planned Provider: [facility], MEDICARE REHAB BED DCP follow-up note: CM ATTEMPTED TO MEET WITH PT AND FAMILY IN ROOM AT 0945 HOURS, NO ONE PRESENT. CM MET WITH PT AND FAMILY IN ROOM AT ABOUT 1300 HOURS, DISCUSSED THAT [facility] WILL NOT ACCEPT PT THEY ARE NOT ABLE TO MEET PT'S NEEDS. CM DISCUSSED AVAILABILITY OF OTHER PRISON REHABS, PROVIDED LISTING FROM MEDICARE WEBSITE OF ALL PRISON FACILITIES WITHIN [address] [facility]. PARENTS CHOSE [facility], [facility] AND [facility]. CHOICE SIGNED. CM CALLED KYLE AT [facility], , NOTIFIED OF REFERRAL. CM FAXED REFERRAL FOR REHAB TO [facility] AT [phone]. CM WAITING ADMISSION DETERMINATION FROM [facility] IN [place]. IF [facility] WILL ACCEPT, PT WILL REQUIRE INSURANCE PRIOR AUTHORIZATION AND OUTPATIENT DIALYSIS UNIT ARRANGEMENT IN [place] WITH SCHEDULE ACCEPTABLE TO [facility] TO ACCOMODATE TRANPORATION NEEDS. Hernesto Camacho, CASE MANAGEMENT DCP- Discharge Planning Updated by [id number]: Caitlin Raines on 04/13/19 2:[address] @ 1502, RECEIVED A CALL FROM YASSINE WITH [facility]. SHE STATED THEY WOULD NOT BE ABLE TO ACCEPT THE PATIENT BECAUSE THEY CANNOT MEET HER NEDS. I HAVE RELAYED THIS MESSAGE TO ABRAM, DISCHARGE CASEMANAGER. DCP- Discharge Planning Updated by [id number]: Hernesto Camacho on 04/13/19 7:[address] Patient Name: ANEESH FRYE Encounter No: [id number] : 1960 Primary Insurance: [employer] [facility] PF Anticipated DC Date: Planned Disposition: [facility] Facility External Planned Provider: [facility], MEDICARE REHAB BED DCP follow-up note: ON 04-12-19, RUTHANN ETIENNE [facility] INFORMED MERARY RAINES THAT [facility] DID NOT RECEIVE REHAB REFERRAL. MERARY RAINES PROVIDED REFERRAL INFORMATION TO RUTHANN [facility]TIEN[facility]. CM FAXED UPDATE TO [facility] ON 04-13-19. CM WAITING ADMISSION DETERMINATION FROM [facility]ANCE DETERMINATION. IF ACCEPTED AT [facility], WILL NEED OUTPATIENT DIALYSIS ARRANGMENT THAT WILL SUIT THE NURSING FACILITY SCHEDULE. Hernesto Camacho, CASE MANAGEMENT DCP- Discharge Planning Updated by [id number]: Donya Barajas on 04/08/19 2:[address] Patient Name: ANEESH FRYE Admission Status: ER Accout number: [id number] Admission Date: 04-02-2019 : 1960 Admission Diagnosis:ACUTE KIDNEY FAILURE, UNSPECIFIED Attending: NEGRA SOMMERS Current LOS: 6 Anticipated DC Date: Planned Disposition: Primary Insurance: [employer] [facility] PFFS Discharge Planning Comments: ANGELLA SIGNED FOR [facility]. PATIENT STARTING DIALYSIS TODAY. SOO APPROVED AND SCANNED INTO [place]. CM WILL FAX REFERRAL. Security Project Manager: Donya Barajas DCP- Discharge Planning Updated by [id number]: Donya Barajas on 04/07/19 2:[address] Patient Name: ANEESH FRYE Admission Status: ER Accout number: [id number] Admission Date: 04-02-2019 : 1960 Admission Diagnosis:ACUTE KIDNEY FAILURE, UNSPECIFIED Attending: NEGRA SOMMERS Current LOS: 5 Anticipated DC Date: Planned Disposition: Primary Insurance: [employer] [facility] PFFS Discharge Planning Comments: CM MET WITH PATIENT'S FATHER SELINA FRYE, HE STATES HE IS HER GAURDIAN. [facility] WOULD LIKE HER TO BE SEEN BY A PSYCH DOCTOR. I GAVE HIM A LIST OF SNF TO LOOK OVER, HE IS GETTING BACK WITH ME WITH HIS CHOICE. I FILLED OUT THE SOO TODAY AND FAXED IT. CM WILL FOLLOW. Security Project Manager: Donya Barajas DCP- Discharge Planning Updated by [id number]: Donya Barajas on 04/06/19 1:[address] Patient Name: ANEESH FRYE Admission Status: ER Accout number: [id number] Admission Date: 04-02-2019 : 1960 Admission Diagnosis:ACUTE KIDNEY FAILURE, UNSPECIFIED Attending: NEGRA SOMMERS Current LOS: 4 Anticipated DC Date: Planned Disposition: Primary Insurance: [employer] [facility] PFFS Discharge Planning Comments: CM MET WITH PATIENT ABOUT DC PLANNING/NEEDS. HER SISTER HORACE STATED THEIR PARENTS SELINA AND CHELY FRYE HAVE GAURDIANSHIP. STATES SISTER HAS MR AND SCHIZOPHRENIA AND LIVES IN A JAIL, SISTER IS CONCERNED PATIENT MAY NEED REHAB AFTER DISCHARGE. STATES WHEN PARENTS ARRIVE THEY WILL CONTACT CM. Security Project Manager: Donya Barajas DCPIA - Discharge Planning Initial Assessment Updated by [id number]: Donya Barajas on 04/06/19 2:18 pm * Is the patient Alert and Oriented? No * Preadmission Environment Detention * List name and contact numbers for known caregivers / representatives who currently or will assist patient after discharge: ABRAM FRYE, PARENTS, Coverage Notice Reviewer: [id number] Camacho Notice Issued Date-Time: 04/15/2019 13:05 Notice Type: Patient Choice Letter Notice Delivered To: Family Member Relationship to Patient: Father Ballet Teacher Name: SELINA FRYE Delivery Method: HAND - Hand Delivered Karime Days: Prior Verbal Notification: Recipient Understood Notice: Yes Recipient Signature: Yes Med Rec Note Co-signed by Attending: Coverage Notice Comment: [facility] Reviewer: [id number] Camacho Notice Issued Date-Time: 04/20/2019 12:52 Notice Type: IM Discharge Notice Notice Delivered To: Family Member Relationship to Patient: Father Ballet Teacher Name: SELINA FRYE Delivery Method: HAND - Hand Delivered Karime Days: Prior Verbal Notification: Recipient Understood Notice: Yes Recipient Signature: Yes Med Rec Note Co-signed by Attending: Coverage Notice Comment: Last DP export: 04/20/19 2:50 p Patient Name: ANEESH FRYE Page [id number] at 1710 All edits/amendments must be made on the electronic document DICTATION DATE: 04/20/191709 PHOTOGRAPHIC EDITOR: SAIMA 04/20/191709 RPT#: [id number] DC DATE: STATUS: ADM IN [facility] [address] [place] [address] END OF REPORT
--- NOTE | 2019-04-20 17:52 | NUR ---
NEW ORDER FOR MIRALAX BID AND MAG CITRATE ONE TIME ORDER OF 300ML TO BE GIVEN TONIGHT DUE TO EATING SUPPER AND SHE IS TO FULL TO DRINK IT RIGHT NOW. CRISTOBAL MENDEZ GAVE THIS ORDER. SHE DENIES ANY CURRENT NEEDS AT THIS TIME.
--- NOTE | 2019-04-20 19:15 | NUR ---
EVENING ROUNDS COMPLETE. PT SITTING UP IN BED. NO SIGNS OF DISTRESS. PT DENIES ANY PAIN OR NEEDS AT THIS TIME. CL IN REACH, BED IN LOWEST POSITION.
[2019-04-20 20:35] VITALS: BP 123/76
[2019-04-21 00:45] VITALS: BP 107/77
[2019-04-21 04:30] VITALS: BP 121/50
[2019-04-21 05:46] LABS: BASOPHILS 0.4 % (0-2); EOSINOPHILS 2.8 % (0-7); HEMOGLOBIN 9.9 g/dL (12-16); IMMATURE GRANULOCYTES 0.3 % (0-5); LYMPHOCYTES 24.7 % (15-50); MCH 29.3 pg (26.0-34.0); MCV 88.8 fL (80.0-100.0); MEAN PLATELET VOLUME 10.7 fL (7.4-10.4); MONOCYTES 16.1 % (2-11); NEUTROPHILS 55.7 % (40-80); PLATELET COUNT 175 10x3/uL (130-400); RBC 3.38 10x6/uL (4.00-5.40); RDW 13.7 % (11.5-14.5); WBC 6.7 10x3/uL (4.8-10.8)
[2019-04-21 05:59] LABS: INR 2.93 (0.85-1.17); PROTIME 29.8 SECONDS (11.6-15.0)
[2019-04-21 06:07] LABS: ALBUMIN 3.6 g/dL (3.4-5.0); ANION GAP 13.9 mmol/L (8-16); BILIRUBIN - TOTAL 0.43 mg/dL (0.2-1.3); CALCIUM 8.6 mg/dL (8.5-10.1); CREATININE - SERUM 2.8 mg/dL (0.6-1.3); POTASSIUM - SERUM 3.9 mmol/L (3.5-5.1); PROTEIN - SERUM 6.8 g/dL (6.4-8.2)
--- NOTE | 2019-04-21 07:07 | MORECARE ---
CASE MANAGEMENT DISCHARGE SUMMARY PATIENT: ANEESH FRYE UNIT: [id number] ADM DATE: 04/02/19 AGE: 58 : 56 SEX: F ROOM/BED: D.0561 AUTHOR: SHANA,DOC PHYSICIAN: REFERRING PHYSICIAN: PETRA SOMMERS MD DATE OF SERVICE: 04/21/19 Discharge Plan Patient Name: ANEESH FRYE Facility: [facility]:[place] : 1960 Planned Disposition: Senior Living Facility Anticipated Discharge Date: 04/21/19 Discharge Date: Expected LOS: 19 Initial Reviewer: [id number] Initial Review Date: 04/06/2019 Generated: 04/21/19 8:07 am Comments DCP- Discharge Planning Updated by [id number]: Hernesto Camacho on 04/20/19 4:[address] Patient Name: ANEESH FRYE Encounter No: [id number] : 1960 Primary Insurance: [employer] [facility] PFFS Anticipated DC Date: 04-20-2019 Planned Disposition: Senior Living Facility External Planned Provider: [facility], MEDICARE REHAB BED DCP follow-up note: CM RECEIVED DIALYSIS UNIT WELCOME LETTER, PT'S FIRST APPOINTMENT AT [facility] IS THURSDAY AT 10:45AM. CM PROVIDED THE LETTER TO PT'S FATHER / POWER OF CERTIFIED OPHTHALMIC SURGICAL ASSISTANT TO BRING HIS GUARDIANSHIP PAPERS TO THE DIALYSIS UNIT THURSDAY BEFORE PT ARRIVES TO SIGN ADMISSION PAPERWORK AND TO BRING PT'S ID IN TWO FORMS WITH PHOTO ID WELL INSURANCE CARDS. PT'S FATHER WILL DO THIS. HE IS IN AGREEMENT WITH DISCHARGE TO [facility] TOMORROW MORNING, VAN TIME IS [address] OCONNELL NOTIFIED. ELECTRICAL MAINTENANCE SUPERVISOR NURSE NOTIFIED. COPY OF WELCOME LETTER PLACED IN CHART. ON 04-21-19, NURSE REPORT TO BE CALLED TO [facility], , FAX DISCHARGE INFORMATION TO [facility] AT [phone]. [facility] TO PROVIDE VAN RETAIL ROUTE SUPERVISOR AT 0900AM. Hernesto Camacho CASE MANAGEMENT DCP- Discharge Planning Updated by [id number]: Hernesto Camacho on 04/20/19 2:[address] Patient Name: ANEESH FRYE Admission Status: ER Accout number: [id number] Admission Date: 04-02-2019 : 1960 Admission Diagnosis:ACUTE KIDNEY FAILURE, UNSPECIFIED Attending: NEGRA SOMMERS Current LOS: 18 Anticipated DC Date: 04-20-2019 Planned Disposition: Senior Living Facility Primary Insurance: [facility] PF PLANNED EXTERNAL PROVIDER: [facility], MEDICARE REHAB BED Discharge Planning Comments: ZHAO RECEIVED CALL FROM [facility] OR [facility], , [facility] WILL ACCEPT PT TODAY IF FAMILY CAN TRANSPORT. [facility] REPORTS THEY WILL NOT TRANSPORT TO [place] AND NEED [place] [facility]. ZHAO NOTIFIED ABIGAIL OF [facility] OF NEED OF DIALYSIS UNIT IN [place]. CM SPOKE TO PT'S FATHER AND MOTHER IN ROOM, THEY ARE IN AGREEMENT WITH DISCHARGE PLAN TODAY, PT'S FATHER CAN DRIVE PT TO THE FACILITY. CM NOTIFIED BEDSIDE NURSE WHO WILL WEAN OXYGEN, PT'S FATHER REPORTS PT IS NOT ON OXYGEN AT HOME. FAMILY CONCERNED THAT PT IS INCONTINENT OF URINE AND WANTED CM TO ENSURE [facility] KNOWS. ZHAO RECEIVED CALL FROM KYLE OF [facility] WHO ADVISED THAT [place] [facility] WILL ACCEPT PT FOR THURSDAY, THURSDAY AND THURSDAY, THEY JUST NEED THE DIALYSIS TIME. CM ADVISED OF PT FAMILY CONCERNS. KYLE REPORTS THEY ALREADY KNEW FROM ADMISSION ASSESSMENT AND WILL WORK WITH INCONTINENCE. BEDSIDE NURSE ADVISED THAT DIALYSIS WILL BE COMPLETED BETWEEN 1500 AND 1530PM TODAY. CM NOTIFIED KYLE OF [facility] WHO INFORMED CM THAT THEY WILL ACCEPT PT AFTER DIALYSIS TODAY WITH FAMILY TRANSPORT. CM WAITING ON DIALYSIS UNIT ACCEPTANCE IN [place] AND WELCOME LETTER. [facility] WILL ACCEPT PT TODAY AFTER DIALYSIS. BEDSIDE NURSE NOTIFIED ZHAO THAT PT IS 95% ON ROOM AIR AND DOES NOT REQUIRE OXYGEN FOR TRANSPORT. Clinic Charge Nurse: Hernesto Camacho Appended by Hernesto Camacho on 04/20/2019 12:49 CDT: CM SPOKE TO PT'S FATHER IN [facility], HE REQUESTED TO HAVE [facility] VAN RETAIL ROUTE SUPERVISOR PT TOMORROW, HE HAS A BAD BACK AND DOES NOT WANT TO RISK INJURY TO PT OR HIMSELF. CM CALLED [facility], SPOKE TO KYLE WHO WILL ARRANGE VAN RETAIL ROUTE SUPERVISOR FOR TOMORROW. CM WAITING ON DIALYSIS UNIT ACCEPTANCE IN [place] AND WELCOME LETTER. [facility] WILL ACCEPT PT TOMORROW AND WILL ARRANGE VAN TRANSPORT. PT DOES NOT REQUIRE OXYGEN FOR TRANSPORT. Clinic Charge Nurse: Hernesto Camacho Appended by Hernesto Camacho on 04/20/2019 15:48 CDT: CM WAITING ON DIALYSIS UNIT ACCEPTANCE IN [place] AND WELCOME LETTER. [facility] WILL ACCEPT PT TOMORROW AND HAS ARRANGED VAN TRANSPORT FOR 0900 ON 04-21-10. PT DOES NOT REQUIRE OXYGEN FOR TRANSPORT. Clinic Charge Nurse: Hernesto Camacho DCP- Discharge Planning Updated by [id number]: Hernesto Camacho on 04/19/19 3:[address] Patient Name: ANEESH FRYE Encounter No: [id number] : 1960 Primary Insurance: [employer] (acquired by [employer]) [facility] PF Anticipated DC Date: Planned Disposition: Senior Living Facility External Planned Provider:[facility], MEDICARE REHAB BED DCP follow-up note: CM SPOKE TO [facility], THEY HAVE SENT INFORMATION TO INSURANCE FOR AUTHORIZATION AND PT WILL NEED TO HAVE NOTES INDICATING SHE CAN SIT UP FOR DURATION OF DIALYSIS IN [place]. CM FAXED UPDATE TO [facility] AT [phone]. CM WAITING ADMISSION DETERMINATION FROM [facility] IN [place]. IF [facility] WILL ACCEPT, PT WILL REQUIRE INSURANCE PRIOR AUTHORIZATION AND OUTPATIENT DIALYSIS UNIT ARRANGEMENT IN [place] WITH SCHEDULE ACCEPTABLE TO [facility] TO ACCOMODATE TRANPORATION NEEDS. SHAYY De Leon MANAGEMENT DCP- Discharge Planning Updated by [id number]: Hernesto Camacho on 04/18/19 4:[address] Patient Name: ANEESH FRYE Encounter No: [id number] : 1960 Primary Insurance: [employer] (acquired by [employer]) [facility] PF Anticipated DC Date: Planned Disposition: Senior Living Facility External Planned Provider[facility], MEDICARE REHAB BED DCP follow-up note: CM SPOKE TO KYLE OF [facility], SHE WILL MEET WITH PT TODAY AND [facility] ADMISSIONS TEAM IS REVIEWING REFERRAL FOR ADMISSION TO REHAB. CM INTRODUCED KYLE TO PT FOR PERSONAL ASSESMENT. CM WAITING ADMISSION DETERMINATION FROM [facility] IN [place]. IF [facility] WILL ACCEPT, PT WILL REQUIRE INSURANCE PRIOR AUTHORIZATION AND OUTPATIENT DIALYSIS UNIT ARRANGEMENT IN [place] WITH SCHEDULE ACCEPTABLE TO [facility] TO ACCOMODATE TRANPORATION NEEDS. SHAYY De Leon MANAGEMENT DCP- Discharge Planning Updated by [id number]: Hernesto Camacho on 04/15/19 3:[address] Patient Name: ANEESH FRYE Encounter No: [id number] : 1960 Primary Insurance: [employer] [facility] PFFS Anticipated DC Date: Planned Disposition: Senior Living Facility External Planned Provider: [facility], MEDICARE REHAB BED DCP follow-up note: CM ATTEMPTED TO MEET WITH PT AND FAMILY IN ROOM AT 0945 HOURS, NO ONE PRESENT. CM MET WITH PT AND FAMILY IN ROOM AT ABOUT 1300 HOURS, DISCUSSED THAT [facility] WILL NOT ACCEPT PT THEY ARE NOT ABLE TO MEET PT'S NEEDS. CM DISCUSSED AVAILABILITY OF OTHER [facility] RE[facility]ABS, PROVIDED LISTING FROM MEDICARE WEBSITE OF ALL [facility] FACILITIES WITHIN [address] OF [facility]. PARENTS CHOSE [facility], [facility] AND [facility]. CHOICE SIGNED. CM CALLED KYLE AT [facility], , NOTIFIED OF REFERRAL. CM FAXED REFERRAL FOR REHAB TO [facility] AT [phone]. CM WAITING ADMISSION DETERMINATION FROM [facility] IN [place]. IF [facility] WILL ACCEPT, PT WILL REQUIRE INSURANCE PRIOR AUTHORIZATION AND OUTPATIENT DIALYSIS UNIT ARRANGEMENT IN [place] WITH SCHEDULE ACCEPTABLE TO [facility] TO ACCOMODATE TRANPORATION NEEDS. Hernesto Camacho, CASE MANAGEMENT DCP- Discharge Planning Updated by [id number]: Caitlin Raines on 04/13/19 2:[address] @ 1508, RECEIVED A CALL FROM YASSINE WITH [facility]. SHE STATED THEY WOULD NOT BE ABLE TO ACCEPT THE PATIENT BECAUSE THEY CANNOT MEET HER NEDS. I HAVE RELAYED THIS MESSAGE TO ABRAM, DISCHARGE CASEMANAGER. DCP- Discharge Planning Updated by [id number]: Hernesto Camacho on 04/13/19 7:[address] Patient Name: ANEESH FRYE Encounter No: [id number] : 1960 Primary Insurance: [employer] [facility] PF Anticipated DC Date: Planned Disposition: Senior Living Facility External Planned Provider: [facility], MEDICARE REHAB BED DCP follow-up note: ON 04-12-19, RUTHANN ETIENNE [facility] INFORMED MERARY RAINES THAT [facility] DID NOT RECEIVE REHAB REFERRAL. MERARY RAINES PROVIDED REFERRAL INFORMATION TO RUTHANN ETIENNE [facility]. CM FAXED UPDATE TO [facility] ON 04-13-19. CM WAITING ADMISSION DETERMINATION FROM [facility] WELL INSURANCE DETERMINATION. IF ACCEPTED AT [facility], WILL NEED OUTPATIENT DIALYSIS ARRANGMENT THAT WILL SUIT THE NURSING FACILITY SCHEDULE. Hernesto Camacho, CASE MANAGEMENT DCP- Discharge Planning Updated by [id number]: Donya Barajas on 04/08/19 2:[address] Patient Name: ANEESH FRYE Admission Status: ER Accout number: [id number] Admission Date: 04-02-2019 : 1960 Admission Diagnosis:ACUTE KIDNEY FAILURE, UNSPECIFIED Attending: NEGRA SOMMERS Current LOS: 6 Anticipated DC Date: Planned Disposition: Primary Insurance: [employer] [facility] PFFS Discharge Planning Comments: ANGELLA SIGNED FOR [facility]. PATIENT STARTING DIALYSIS TODAY. SOO APPROVED AND SCANNED INTO [employer]. CM WILL FAX REFERRAL. Clinic Charge Nurse: Donya Barajas DCP- Discharge Planning Updated by [id number]: Donya Barajas on 04/07/19 2:[address] Patient Name: ANEESH FRYE Admission Status: ER Accout number: [id number] Admission Date: 04-02-2019 : 1960 Admission Diagnosis:ACUTE KIDNEY FAILURE, UNSPECIFIED Attending: NEGRA SOMMERS Current LOS: 5 Anticipated DC Date: Planned Disposition: Primary Insurance: [employer] [facility] PFFS Discharge Planning Comments: CM MET WITH PATIENT'S FATHER SELINA FRYE, HE STATES HE IS HER GAURDIAN. [facility] WOULD LIKE HER TO BE SEEN BY A PSYCH DOCTOR. I GAVE HIM A LIST OF SNF TO LOOK OVER, HE IS GETTING BACK WITH ME WITH HIS CHOICE. I FILLED OUT THE SOO TODAY AND FAXED IT. CM WILL FOLLOW. Clinic Charge Nurse: Donya Barajas DCP- Discharge Planning Updated by [id number]: Donya Barajas on 04/06/19 1:[address] Patient Name: ANEESH FRYE Admission Status: ER Accout number: [id number] Admission Date: 04-02-2019 : 1960 Admission Diagnosis:ACUTE KIDNEY FAILURE, UNSPECIFIED Attending: NEGRA SOMMERS Current LOS: 4 Anticipated DC Date: Planned Disposition: Primary Insurance: [employer] [facility] PFFS Discharge Planning Comments: CM MET WITH PATIENT ABOUT DC PLANNING/NEEDS. HER SISTER HORACE STATED THEIR PARENTS SELINA AND CHELY FRYE HAVE GAURDIANSHIP. STATES SISTER HAS MR AND SCHIZOPHRENIA AND LIVES IN A [place]PC, SISTER IS CONCERNED PATIENT MAY NEED REHAB AFTER DISCHARGE. STATES WHEN PARENTS ARRIVE THEY WILL CONTACT CM. Clinic Charge Nurse: Donya Barajas DCPIA - Discharge Planning Initial Assessment Updated by [id number]: Donya Barajas on 04/06/19 2:18 pm * Is the patient Alert and Oriented? No * Preadmission Environment Skilled Nursing * List name and contact numbers for known caregivers / representatives who currently or will assist patient after discharge: ABRAM FRYE, PARENTS, Coverage Notice Reviewer: [id number] Camacho Notice Issued Date-Time: 04/15/2019 13:05 Notice Type: Patient Choice Letter Notice Delivered To: Family Member Relationship to Patient: Father Engineering Analyst Name: SELINA FRYE Delivery Method: HAND - Hand Delivered Karime Days: Prior Verbal Notification: Recipient Understood Notice: Yes Recipient Signature: Yes Med Rec Note Co-signed by Attending: Coverage Notice Comment: [facility] Reviewer: [id number] Camacho Notice Issued Date-Time: 04/20/2019 12:52 Notice Type: IM Discharge Notice Notice Delivered To: Family Member Relationship to Patient: Father Engineering Analyst Name: SELINA FRYE Delivery Method: HAND - Hand Delivered Karime Days: Prior Verbal Notification: Recipient Understood Notice: Yes Recipient Signature: Yes Med Rec Note Co-signed by Attending: Coverage Notice Comment: Last DP export: 04/20/19 4:10 p Patient Name: ANEESH FRYE Page [id number] at 0707 All edits/amendments must be made on the electronic document DICTATION DATE: 04/21/19706 WESTERN PHILOSOPHY PROFESSOR: SAIMA 04/21/19706 RPT#: [id number] DC DATE: STATUS: ADM IN [facility] [address] [place] [address] END OF REPORT
[2019-04-21] MEDS ORDERED: COUMADIN3 MG PO (07:32)
[2019-04-21] MEDS ORDERED: MIRALAX17 GM PO (07:33)
[2019-04-21] MEDS ORDERED: PROTONIX FOR OR40 MG PO (07:34)
[2019-04-21] MEDS ORDERED: BUMEX2 MG PO (07:35)
[2019-04-21] MEDS ORDERED: K-DUR20 MEQ PO (07:36)
[2019-04-21] MEDS ORDERED: CATAPRES TTS-20.2 MG TD (07:39)
--- NOTE | 2019-04-21 08:09 | NUR ---
PER LORRAINE AT [facility], THEY PERFER TO GIVE THE FLU SHOT TO THEIR PATIENTS.
--- NOTE | 2019-04-21 08:44 | MORECARE ---
CASE MANAGEMENT DISCHARGE SUMMARY PATIENT: ANEESH FRYE UNIT: [id number] ADM DATE: 04/02/19 AGE: 58 : 56 SEX: F ROOM/BED: D.2116 AUTHOR: SHANA,DOC PHYSICIAN: REFERRING PHYSICIAN: PETRA SOMMERS MD DATE OF SERVICE: 04/21/19 Discharge Plan Patient Name: ANEESH FRYE Facility: [facility]:[place] : 1960 Planned Disposition: Senior Living Facility Anticipated Discharge Date: 04/21/19 Discharge Date: Expected LOS: 19 Initial Reviewer: [id number] Initial Review Date: 04/06/2019 Generated: 04/21/19 9:44 am Comments DCP- Discharge Planning Updated by [id number]: Hernesto Camacho on 04/21/19 7:[address] Patient Name: ANEESH FRYE Encounter No: [id number] : 1960 Primary Insurance: [employer] [facility] P[facility] Anticipated DC Date: 04-21-2019 Planned Disposition: Senior Living Facility External Planned Provider: [facility], MEDICARE REHAB BED DCP follow-up note: CM RECEIVED DISCHARGE ORDER. CM FAXED DISCHARGE INFORMATION TO [facility] AT [phone]. CM SPOKE TO PT'S FATHER IN [facility], HE IS IN AGREEMENT WITH PLAN FOR DISCHARGE TO [facility] TODAY. CM SPOKE TO DONYA OF [facility], SHE IS MAKING SURE VAN TRANSPORT IS ON THE WAY. NURSE REPORT TO BE CALLED TO [facility], , [facility] TO PROVIDE VAN DETECTIVE LIE[facility]NT AT 0900AM. Hernesto Camacho, CASE MANAGEMENT DCP- Discharge Planning Updated by [id number]: Hernesto Camacho on 04/20/19 4:[address] Patient Name: ANEESH FRYE Encounter No: [id number] : 1960 Primary Insurance: [employer] [facility] PFFS Anticipated DC Date: 04-20-2019 Planned Disposition: Senior Living Facility External Planned Provider: [facility], MEDICARE REHAB BED DCP follow-up note: CM RECEIVED DIALYSIS UNIT WELCOME LETTER, PT'S FIRST APPOINTMENT AT [facility] IS THURSDAY AT 10:45AM. CM PROVIDED THE LETTER TO PT'S FATHER / POWER OF ORE CRUSHING DUST COLLECTOR TO BRING HIS GUARDIANSHIP PAPERS TO THE DIALYSIS UNIT THURSDAY BEFORE PT ARRIVES TO SIGN ADMISSION PAPERWORK AND TO BRING PT'S ID IN TWO FORMS WITH PHOTO ID WELL INSURANCE CARDS. PT'S FATHER WILL DO THIS. HE IS IN AGREEMENT WITH DISCHARGE TO [facility] TOMORROW MORNING, VAN TIME IS [address] OCONNELL NOTIFIED. CONE WORKER NURSE NOTIFIED. COPY OF WELCOME LETTER PLACED IN CHART. ON 04-21-19, NURSE REPORT TO BE CALLED TO [facility], , FAX DISCHARGE INFORMATION TO [facility] AT [phone]. [facility] TO PROVIDE VAN DETECTIVE LIEUTENANT AT 0900AM. Hernesto Camacho, CASE MANAGEMENT DCP- Discharge Planning Updated by [id number]: Hernesto Camacho on 04/20/19 2:[address] Patient Name: ANEESH FRYE Admission Status: ER Accout number: [id number] Admission Date: 04-02-2019 : 1960 Admission Diagnosis:ACUTE KIDNEY FAILURE, UNSPECIFIED Attending: NEGRA SOMMERS Current LOS: 18 Anticipated DC Date: 04-20-2019 Planned Disposition: Senior Living Facility Primary Insurance: [employer] [facility] PLANNED EXTERNAL PROVIDER: [facility], MEDICARE REHAB BED Discharge Planning Comments: CM RECEIVED CALL FROM [facility]YLE OR [facility], , [facility] WILL ACCEPT PT TODAY IF FAMILY CAN TRANSPORT. KYLE REPORTS THEY WILL NOT TRANSPORT TO [place] AND NEED [place] [facility]. ZHAO NOTIFIED ABIGAIL OF [facility] OF NEED OF DIALYSIS UNIT IN [place]. CM SPOKE TO PT'S FATHER AND MOTHER IN ROOM, THEY ARE IN AGREEMENT WITH DISCHARGE PLAN TODAY, PT'S FATHER CAN DRIVE PT TO THE FACILITY. CM NOTIFIED BEDSIDE NURSE WHO WILL WEAN OXYGEN, PT'S FATHER REPORTS PT IS NOT ON OXYGEN AT HOME. FAMILY CONCERNED THAT PT IS INCONTINENT OF URINE AND WANTED CM TO ENSURE INTERMEDIATE KNOWS. ZHAO RECEIVED CALL FROM KYLE OF [facility] WHO ADVISED THAT [place] [facility] WILL ACCEPT PT FOR THURSDAY, THURSDAY AND THURSDAY, THEY JUST NEED THE DIALYSIS TIME. ZHAO ADVISED OF PT FAMILY CONCERNS. KYLE REPORTS THEY ALREADY KNEW FROM ADMISSION ASSESSMENT AND WILL WORK WITH INCONTINENCE. BEDSIDE NURSE ADVISED THAT DIALYSIS WILL BE COMPLETED BETWEEN 1500 AND 1530PM TODAY. CM NOTIFIED KYLE OF [facility] WHO INFORMED CM THAT THEY WILL ACCEPT PT AFTER DIALYSIS TODAY WITH FAMILY TRANSPORT. CM WAITING ON DIALYSIS UNIT ACCEPTANCE IN [place] AND WELCOME LETTER. [facility] WILL ACCEPT PT TODAY AFTER DIALYSIS. BEDSIDE NURSE NOTIFIED CM THAT PT IS 95% ON ROOM AIR AND DOES NOT REQUIRE OXYGEN FOR TRANSPORT. Millstone Cleaner: Hernesto Camacho Appended by Hernesto Camacho on 04/20/2019 12:49 CDT: CM SPOKE TO PT'S FATHER IN [facility], HE REQUESTED TO HAVE [facility] PT TOMORROW, HE HAS A BAD BACK AND DOES NOT WANT TO RISK INJURY TO PT OR HIMSELF. CM CALLED [facility], SPOKE TO KYLE WHO WILL ARRANGE VAN DETECTIVE [facility] FOR TOMORROW. CM WAITING ON DIALYSIS UNIT ACCEPTANCE IN [place] AND WELCOME LETTER. [facility] WILL ACCEPT PT TOMORROW AND WILL ARRANGE VAN TRANSPORT. PT DOES NOT REQUIRE OXYGEN FOR TRANSPORT. Millstone Cleaner: Hernesto Camacho Appended by Hernesto Camacho on 04/20/2019 15:48 CDT: CM WAITING ON DIALYSIS UNIT ACCEPTANCE IN [place] AND WELCOME LETTER. [facility] WILL ACCEPT PT TOMORROW AND HAS ARRANGED VAN TRANSPORT FOR 0900 ON 04-21-10. PT DOES NOT REQUIRE OXYGEN FOR TRANSPORT. Millstone Cleaner: Hernesto Camacho DCP- Discharge Planning Updated by [id number]: Hernesto Camacho on 04/19/19 3:[address] Patient Name: ANEESH FRYE Encounter No: [id number] : 1960 Primary Insurance: [facility] Anticipated DC Date: Planned Disposition: Senior Living Facility External Planned Provider:[facility], MEDICARE REHAB BED DCP follow-up note: CM SPOKE TO KYLE OF [facility], THEY HAVE SENT INFORMATION TO INSURANCE FOR AUTHORIZATION AND PT WILL NEED TO HAVE NOTES INDICATING SHE CAN SIT UP FOR DURATION OF DIALYSIS IN CHAIR. CM FAXED UPDATE TO [facility] AT [phone]. CM WAITING ADMISSION DETERMINATION FROM [facility] IN [place]. IF INTERMEDIATE WILL ACCEPT, PT WILL REQUIRE INSURANCE PRIOR AUTHORIZATION AND OUTPATIENT DIALYSIS UNIT ARRANGEMENT IN [place] WITH SCHEDULE ACCEPTABLE TO INTERMEDIATE TO ACCOMODATE TRANPORATION NEEDS. Hernesto Camacho, CASE MANAGEMENT DCP- Discharge Planning Updated by [id number]: Hernesto Camacho on 04/18/19 4:[address] Patient Name: ANEESH FRYE Encounter No: [id number] : 1960 Primary Insurance: [employer] [facility] P[facility] Anticipated DC Date: Planned Disposition: Senior Living Facility External Planned Provider: [facility], MEDICARE REHAB BED DCP follow-up note: CM SPOKE TO KYLE OF [facility], SHE WILL MEET WITH PT TODAY AND [facility] ADMISSIONS TEAM IS REVIEWING REFERRAL FOR ADMISSION TO REHAB. CM INTRODUCED KYLE TO PT FOR PERSONAL ASSESMENT. CM WAITING ADMISSION DETERMINATION FROM [facility] IN [place]. IF INTERMEDIATE WILL ACCEPT, PT WILL REQUIRE INSURANCE PRIOR AUTHORIZATION AND OUTPATIENT DIALYSIS UNIT ARRANGEMENT IN [place] WITH SCHEDULE ACCEPTABLE TO INTERMEDIATE TO ACCOMODATE TRANPORATION NEEDS. Hernesto Camacho, CASE MANAGEMENT DCP- Discharge Planning Updated by [id number]: Hernesto Camacho on 04/15/19 3:[address] Patient Name: ANEESH FRYE Encounter No: [id number] : 1960 Primary Insurance: [employer] [facility] PFFS Anticipated DC Date: Planned Disposition: Senior Living Facility External Planned [facility], MEDICARE REHAB BED DCP follow-up note: CM ATTEMPTED TO MEET WITH PT AND FAMILY IN ROOM AT 0945 HOURS, NO ONE PRESENT. CM MET WITH PT AND FAMILY IN ROOM AT ABOUT 1300 HOURS, DISCUSSED THAT [facility] WILL NOT ACCEPT PT THEY ARE NOT ABLE TO MEET PT'S NEEDS. CM DISCUSSED AVAILABILITY OF OTHER SENIOR CARE REHABS, PROVIDED LISTING FROM MEDICARE WEBSITE OF ALL SENIOR CARE FACILITIES WITHIN [address] OF [facility]. PARENTS CHOSE [facility], [facility] AND [facility]. CHOICE SIGNED. CM CALLED KYLE AT [facility], , NOTIFIED OF REFERRAL. CM FAXED REFERRAL FOR REHAB TO [facility] AT [phone]. CM WAITING ADMISSION DETERMINATION FROM [facility] IN [place]. IF INTERMEDIATE WILL ACCEPT, PT WILL REQUIRE INSURANCE PRIOR AUTHORIZATION AND OUTPATIENT DIALYSIS UNIT ARRANGEMENT IN [place] WITH SCHEDULE ACCEPTABLE TO INTERMEDIATE TO ACCOMODATE TRANPORATION NEEDS. Hernesto Camacho, CASE MANAGEMENT DCP- Discharge Planning Updated by [id number]: Caitlin Raines on 04/13/19 2:[address] @ 1509, RECEIVED A CALL FROM YASSINE WITH [facility]. SHE STATED THEY WOULD NOT BE ABLE TO ACCEPT THE PATIENT BECAUSE THEY CANNOT MEET HER NEDS. I HAVE RELAYED THIS MESSAGE TO TRE VALVERDE CASEMANAGER. DCP- Discharge Planning Updated by [id number]: Hernesto Camacho on 04/13/19 7:[address] Patient Name: ANEESH FRYE Encounter No: [id number] : 1960 Primary Insurance: [employer] [facility] PFFS Anticipated DC Date: Planned Disposition: Senior Living Facility External Planned Provider: [facility], MED[facility]ARE REHAB BED DCP follow-up note: ON 04-12-19, [facility] INFORMED MERARY RAINES THAT [facility] DID NOT RECEIVE REHAB REFERRAL. MERARY RAINES PROVIDED REFERRAL INFORMATION TO [facility]. CM FAXED UPDATE TO [facility] ON 04-13-19. CM WAITING ADMISSION DETERMINATION FROM [facility] WELL INSURANCE DETERMINATION. IF ACCEPTED AT [facility], WILL NEED OUTPATIENT DIALYSIS ARRANGMENT THAT WILL SUIT THE NURSING FACILITY SCHEDULE. Hernesto Camacho, CASE MANAGEMENT DCP- Discharge Planning Updated by [id number]: Donya Barajas on 04/08/19 2:[address] Patient Name: ANEESH FRYE Admission Status: ER Accout number: [id number] Admission Date: 04-02-2019 : 1960 Admission Diagnosis:ACUTE KIDNEY FAILURE, UNSPECIFIED Attending: NEGRA SOMMERS Current LOS: 6 Anticipated DC Date: Planned Disposition: Primary Insurance: [employer] [facility] PFFS Discharge Planning Comments: ANGELLA SIGNED FOR [facility]. PATIENT STARTING DIALYSIS TODAY. SOO APPROVED AND SCANNED INTO [facility]. CM WILL FAX REFERRAL. Millstone Cleaner: Donya Barajas DCP- Discharge Planning Updated by [id number]: Donya Barajas on 04/07/19 2:[address] Patient Name: ANEESH FRYE Admission Status: ER Accout number: [id number] Admission Date: 04-02-2019 : 1960 Admission Diagnosis:ACUTE KIDNEY FAILURE, UNSPECIFIED Attending: NEGRA SOMMERS Current LOS: 5 Anticipated DC Date: Planned Disposition: Primary Insurance: [employer] [facility] PFFS Discharge Planning Comments: CM MET WITH PATIENT'S FATHER SELINA FRYE, HE STATES HE IS HER GAURDIAN. STATES WOULD LIKE HER TO BE SEEN BY A PSYCH DOCTOR. I GAVE HIM A LIST OF SNF TO LOOK OVER, HE IS GETTING BACK WITH ME WITH HIS CHOICE. I FILLED OUT THE SOO TODAY AND FAXED IT. CM WILL FOLLOW. Millstone Cleaner: Donya Barajas DCP- Discharge Planning Updated by [id number]: Donya Barajas on 04/06/19 1:[address] Patient Name: ANEESH FRYE Admission Status: ER Accout number: [id number] Admission Date: 04-02-2019 : 1960 Admission Diagnosis:ACUTE KIDNEY FAILURE, UNSPECIFIED Attending: NEGRA SOMMERS Current LOS: 4 Anticipated DC Date: Planned Disposition: Primary Insurance: [employer] [facility] PFFS Discharge Planning Comments: CM MET WITH PATIENT ABOUT DC PLANNING/NEEDS. HER SISTER HORACE STATED THEIR PARENTS ABRAM FRYE HAVE GAURDIANSHIP. STATES SISTER HAS MR AND SCHIZOPHRENIA AND LIVES IN A INTERMEDIATE, SISTER IS CONCERNED PATIENT MAY NEED REHAB AFTER DISCHARGE. STATES WHEN PARENTS ARRIVE THEY WILL CONTACT CM. Millstone Cleaner: Donya Barajas DCPIA - Discharge Planning Initial Assessment Updated by [id number]: Donya Barajas on 04/06/19 2:18 pm * Is the patient Alert and Oriented? No * Preadmission Environment Jail * List name and contact numbers for known caregivers / representatives who currently or will assist patient after discharge: ABRAM FRYE, PARENTS, Coverage Notice Reviewer: [id number] Jesus Camacho Notice Issued Date-Time: 04/15/2019 13:05 Notice Type: Patient Choice Letter Notice Delivered To: Family Member Relationship to Patient: Father Wig Dresser Name: SELINA FRYE Delivery Method: HAND - Hand Delivered Karime Days: Prior Verbal Notification: Recipient Understood Notice: Yes Recipient Signature: Yes Med Rec Note Co-signed by Attending: Coverage Notice Comment: [facility] Reviewer: [id number] Jesus Camacho Notice Issued Date-Time: 04/20/2019 12:52 Notice Type: IM Discharge Notice Notice Delivered To: Family Member Relationship to Patient: Father Wig Dresser Name: SELINA FRYE Delivery Method: HAND - Hand Delivered Karime Days: Prior Verbal Notification: Recipient Understood Notice: Yes Recipient Signature: Yes Med Rec Note Co-signed by Attending: Coverage Notice Comment: Last DP export: 04/21/19 6:07 Patient Name: ANEESH FRYE Page [id number] at 0844 All edits/amendments must be made on the electronic document DICTATION DATE: 04/21/19843 FIELD IDENTIFICATION SPECIALIST: SAIMA 04/21/19843 RPT#: [id number] DC DATE: STATUS: ADM IN [facility] [address] [place] [address] END OF REPORT
[2019-04-21 08:55] VITALS: BP 140/63
== END 2019-04-21 10:10 | DRG 682 ==
LOC: D.ER 23:17 → D.M2 04-02 00:57 → D.CVICU 04-10 19:31 → D.M2 04-10 21:35
PROVIDERS: Family Medicine; Internal Medicine; Internal Medicine Nephrology; ADMIT Emergency Medicine; ATTEND Emergency Medicine
PROC: 05H933Z Insertion of Infusion Device into Right Brachial Vein, Percutaneous Approach (ICD-10-PCS; principal; 2019-04-08)
PROC: 06HM33Z Insertion of Infusion Device into Right Femoral Vein, Percutaneous Approach (ICD-10-PCS; 2019-04-10)
PROC: 02HV33Z Insertion of Infusion Device into Superior Vena Cava, Percutaneous Approach (ICD-10-PCS; 2019-04-12)
PROC: B5181ZA Fluoroscopy of Superior Vena Cava using Low Osmolar Contrast, Guidance (ICD-10-PCS; 2019-04-12)
PROC: B5181ZZ Fluoroscopy of Superior Vena Cava using Low Osmolar Contrast (ICD-10-PCS; 2019-04-12)
DX: N17.9 Acute kidney failure, unspecified (principal); I50.31 Acute diastolic (congestive) heart failure; E43 Unspecified severe protein-calorie malnutrition; M62.82 Rhabdomyolysis; N39.0 Urinary tract infection, site not specified; F32.9 Major depressive disorder, single episode, unspecified; E78.5 Hyperlipidemia, unspecified; Z79.01 Long term (current) use of anticoagulants; D69.6 Thrombocytopenia, unspecified; B96.20 Unspecified Escherichia coli [E. coli] as the cause of diseases classified elsewhere; E83.39 Other disorders of phosphorus metabolism; R41.9 Unspecified symptoms and signs involving cognitive functions and awareness; F20.9 Schizophrenia, unspecified; Z87.891 Personal history of nicotine dependence; Z68.31 Body mass index [BMI] 31.0-31.9, adult